=== PATIENT | male | born 1955 | race Caucasian/White ===

== ENCOUNTER 2017-05-28 09:06 | Emergency (ER) | payer OTHER ==
[~2017-05-28] VITALS: Ht 182.9 cm; Wt 127.0 kg
[~2017-05-28 09:06] MED LIST: ALBUTEROL2.5 MG/3 M INH; ALTACE10 M1 PO; AZITHROMYCIN500 M3 PO; CATAPRES-TTS 21 EACH TD; CHILDREN'S ASPI81 M1 PO; DIFLUCAN 100MG100 MG PO; DIOVAN 160 MG160 MG PO; FARXIGA5 MG PO; FLOVENT HFA12 G1 INH; HYDRALAZINE HCL25 M1 PO; HYDROCHLOROTHIAZIDE PO; IPRATROPIU0.2 MG/1 M INH; KLOR-CON M2020 ME1 PO; LABETALOL HCL200 MG PO; LANTUS100 U/ML SC; LASIX40 M1 PO; LEVEMIR 10100 UNITS/ SC; METFORMIN HYDR500 M1 PO; MONTELUKAST SOD10 M1 PO; NORVASC 10MG10 MG PO; NOVOLOG100 U/ML SC; PREDNISONE10 M2 PO; SIMVASTATIN40 M1 PO; TRESIBA FL200 UNIT/1 SC; VALSARTAN PO; VALSARTAN320 MG PO
--- NOTE | 2017-05-28 09:30 | ED INFLUENZA/URI COMPLAINT ---
History of Present Illness General Chief Complaint: Upper Respiratory Sx/Fever Stated Complaint: COLD SYMPTOMS Source: patient Exam Limitations: no limitations Vital Signs & Intake/Output Vital Signs & Intake/Output Vital Signs Date Time Temp Pulse Resp B/P B/P Pulse O2 O2 Flow FiO2 Mean Ox Delivery Rate 05/28 0833 Room Air 05/28 908 97.2 57 18 172/75 96 Room Air Allergies Coded Allergies: NO KNOWN ALLERGIES (11/19/13) Reconcile Medications Aspirin (Children's Aspirin) 81 MG TAB.CHEW 1 TAB PO DAILY HEART HEALTH ( Reported) Cholecalciferol (Vitamin D3) (Vitamin D3) 2,000 UNIT TABLET 1 TAB PO DAILY VITAMIN SUPPORT (Reported) Furosemide (Lasix) 40 MG TABLET 1 TAB PO DAILY HEART (Reported) Guaifenesin (Mucinex) 1,200 MG TAB.ER.12H 1 TAB PO BID PRN COUGH Insulin Degludec (Tresiba Flextouch U-100) 100 UNIT/ML (3 ML) INSULN.PEN 84 UNITS SC DAILY DIABETES (Reported) Labetalol HCl 200 MG TABLET 1 TAB PO BID HEART (Reported) Potassium Chloride (Klor-Con M20) 20 MEQ TAB.ER.PRT 1 TAB PO DAILY LOW POTASSIUM Simvastatin (Simvastatin*) 40 MG TABLET 1 TAB PO DAILY CHOLESTEROL (Reported) Valsartan 160 MG TABLET 1 TAB PO BID HEART (Reported) Triage Note: PT STATES HE DOESN'T FEEL WELL WAS SEEN IN HIS DR. OFFICE AND HE STATES "HE CAN'T FIND ANYTHING WRONG WITH ME". PT REPORTS COLD LIKE SYMPTOMS THAT WON'T GO AWAY. PT HAS BEEN SICK FOR A WEEK AND A HALF. PT DENIES COUGH. Triage Nurses Notes Reviewed? yes Onset: Gradual Duration: week(s):, continues in ED, intermittent Severity: severe HPI: Patient presents for evaluation of a cough with yellow phlegm production and chest congestion. Patient states that about 2 weeks ago he had some nausea and vomiting that has resolved but the chest symptoms persist. Patient has had a diminished appetite and has felt weak and somewhat fatigued although his appetite seems to be returning. Patient denies fever, cold symptoms, vomiting or diarrhea over the past few days. No apparent headaches or sinus/nasal/ pharyngeal signs or symptoms other than mild postnasal drip. Patient denies any known ill contact. He admits to not having had the influenza vaccine this year. Past History Travel History Traveled to [place] past 21 day No Medical History Any Pertinent Medical History? 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 No Review of Systems Review of Systems Constitutional: Reports: no symptoms. EENTM: Reports: no symptoms. Respiratory: Reports: see HPI. Cardiovascular: Reports: no symptoms. GI: Reports: no symptoms. Genitourinary: Reports: no symptoms. Musculoskeletal: Reports: no symptoms. Skin: Reports: no symptoms. Neurological/Psychological: Reports: no symptoms. Hematologic/Endocrine: Reports: no symptoms. Immunologic/Allergic: Reports: no symptoms. All Other Systems: Reviewed and Negative Physical Exam Physical Exam Ears, Nose, Throat: see below Comments: Gen.: Well-nourished, well-developed, no acute respiratory distress. Head: Normocephalic, atraumatic. Eyes: Normal inspection bilaterally Ears: Normal inspection bilaterally Nose: Normal inspection Throat/mouth : Moist mucosa Neck: Supple, full range of motion, no goiter Heart: Regular rate and rhythm, no murmurs rubs or gallops Lungs: Clear to auscultation bilaterally with normal air entry Chest: Nontender Back: Normal range of motion Abdomen: Soft, nontender, nondistended, normal bowel sounds Extremities: Normal range of motion grossly, equal radial pulses, no cyanosis clubbing or edema Neurologic: Cranial nerves grossly intact, speech is clear Skin: warm and dry Psychiatric: Calm, cooperative, no apparent delusions or hallucinations Core Measures Sepsis Present: No Sepsis Focused Exam Completed? No Progress Differential Diagnosis: pneumonia, POST BRONCHITIS Plan of Care: Orders Procedure Date/time Status XRY-CHEST XRAY, TWO VIEWS 05/28 1012 Active CXR Impression: PATIENT: JASON HOPPER PRESENT AGE: 61 PATIENT ACCOUNT NO: [id number] : 53 LOCATION: ER ORDERING PHYSICIAN: Gallo Peraza MD SERVICE DATE: 05/28/17 EXAM TYPE: RAD - XRY-CHEST XRAY, TWO VIEWS EXAMINATION: XR CHEST CLINICAL INFORMATION: Pneumonia. COMPARISON: Chest radiograph dated 05/25/2017. TECHNIQUE: 2 views of the chest were obtained. FINDINGS: The cardiac silhouette is normal in size. There is no focal consolidation to indicate pneumonia. No pneumothorax. No pleural effusion. There are degenerative changes throughout the thoracic spine. IMPRESSION: No definite pneumonia. No pleural effusion or pneumothorax. No change from prior study. DICTATED BY: Feroz Copeland MD DATE/TIME DICTATED:05/28/171056 DISTRICT ATTORNEY:JUSTINO DATE/TIME TRANSCRIBED:05/28/171056 CONFIDENTIAL, DO NOT COPY WITHOUT APPROPRIATE AUTHORIZATION. <Electronically signed in Other Vendor System> SIGNED BY: Feroz Copeland MD 05/28/17 1103 Initial ED EKG: none Departure Departure Disposition: HOME OR SELF CARE Condition: Stable Clinical Impression Primary Impression: Bronchitis Referrals: Cee Gibbons MD (PCP/Family) Additional Instructions: Cough medication as prescribed. Maintained a good fluid intake. Follow-up with your primary care physician in one week if not improving although the cough following bronchitis may last a number of weeks. Return if any concerns or sudden worsening. Thank you for choosing the [facility] Emergency Department for your care. It was a pleasure to serve you today. Gallo Peraza M.D. [facility] Departure Forms: Customer Survey General Discharge Information Prescriptions: Current Visit Scripts Guaifenesin (Mucinex) 1 TAB PO BID PRN COUGH #30 TAB
[2017-05-28] MEDS ORDERED: LABETALOL HCL200 M1 PO (09:53)
[2017-05-28] MEDS ORDERED: VITAMIN D32000 UNI1 PO (09:54)
[2017-05-28] MEDS ORDERED: TRESIBA FL100 UNIT/1 SC (09:55)
[2017-05-28] MEDS ORDERED: VALSARTAN160 M1 PO (09:57)
--- NOTE | 2017-05-28 11:03 | RADIOLOGY REPORT ---
EXAMINATION: XR CHEST CLINICAL INFORMATION: Pneumonia. COMPARISON: Chest radiograph dated 05/25/2017. TECHNIQUE: 2 views of the chest were obtained. FINDINGS: The cardiac silhouette is normal in size. There is no focal consolidation to indicate pneumonia. No pneumothorax. No pleural effusion. There are degenerative changes throughout the thoracic spine. IMPRESSION: No definite pneumonia. No pleural effusion or pneumothorax. No change from prior study.
[2017-05-28] MEDS ORDERED: MUCINEX1200 M1 PO (11:07)
[2017-05-28 11:18] VITALS: BP 150/80
== END 2017-05-28 11:18 ==
LOC: ERH 09:06
DX: J40 Bronchitis, not specified as acute or chronic (principal)
CPT/HCPCS: 71046

== ENCOUNTER 2017-07-01 11:11 | Inpatient (IN) | payer OTHER ==
[~2017-07-01] VITALS: Ht 182.9 cm; Wt 136.1 kg
[~2017-07-01 11:11] MED LIST changes: +LABETALOL HCL200 M1 PO; +MUCINEX1200 M1 PO; +TRESIBA FL100 UNIT/1 SC; +VALSARTAN160 M1 PO; +VITAMIN D32000 UNI1 PO
--- NOTE | 2017-07-01 11:24 | ED GENERAL ADULT ---
History of Present Illness General Chief Complaint: General Adult Stated Complaint: BIBA DANYA AND LOW BLOOD SUGAR Source: patient Exam Limitations: no limitations Vital Signs & Intake/Output Vital Signs & Intake/Output Vital Signs Date Time Temp Pulse Resp B/P B/P Pulse O2 O2 Flow FiO2 Mean Ox Delivery Rate 07/01 1936 98.1 70 20 210/80 95 Room Air 07/01 1703 98.0 64 20 182/96 96 Room Air 07/01 1417 97.6 61 18 208/92 97 Room Air 07/01 1135 98.7 62 20 208/90 97 Room Air 07/01/17 11:21 AM 61-year-old man presents to the emergency department for altered mental status. According to EMS the patient was found unresponsive at home. He was bradycardic and hypoglycemic. He had a fingerstick that was low he was given an amp of D50. He had a heart rate in the 40s and was given atropine and glucagon. Currently now in the emergency Department is awake alert and oriented 3. He has no complaints. Allergies Coded Allergies: NO KNOWN ALLERGIES (11/19/13) Reconcile Medications Aspirin (Children's Aspirin) 81 MG TAB.CHEW 1 TAB PO DAILY HEART HEALTH ( Reported) Cholecalciferol (Vitamin D3) (Vitamin D3) 2,000 UNIT TABLET 1 TAB PO DAILY VITAMIN SUPPORT (Reported) Furosemide (Lasix) 40 MG TABLET 1 TAB PO DAILY HEART (Reported) Insulin Degludec (Tresiba Flextouch U-100) 100 UNIT/ML (3 ML) INSULN.PEN 84 UNITS SC DAILY DIABETES (Reported) Labetalol HCl 200 MG TABLET 1 TAB PO BID HEART (Reported) Potassium Chloride (Klor-Con M20) 20 MEQ TAB.ER.PRT 1 TAB PO DAILY LOW POTASSIUM Simvastatin (Simvastatin*) 40 MG TABLET 1 TAB PO DAILY CHOLESTEROL (Reported) Valsartan 160 MG TABLET 1 TAB PO DAILY HEART (Reported) Triage Nurses Notes Reviewed? yes Onset: Abrupt Duration: hour(s): Timing: recent history HPI: 07/01/17 11:21 AM 61-year-old man presents to the emergency department for altered mental status. According to EMS the patient was found unresponsive at home. He was bradycardic and hypoglycemic. He had a fingerstick that was low he was given an amp of D50. He had a heart rate in the 40s and was given atropine and glucagon. Currently now in the emergency Department is awake alert and oriented 3. He has no complaints. Past History Medical History Any Pertinent Medical History? 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 No Review of Systems Review of Systems Constitutional: Denies: fever. EENTM: Denies: visual changes. Respiratory: Denies: short of breath. Cardiovascular: Denies: chest pain. GI: Reports: abdominal pain, vomiting. Genitourinary: Reports: no symptoms. Musculoskeletal: Reports: see HPI. Skin: Reports: see HPI. Neurological/Psychological: Reports: see HPI. Hematologic/Endocrine: Reports: no symptoms. Physical Exam Physical Exam General Appearance: alert, awake, anxious, mild distress Head: atraumatic, normal appearance Eyes: Bilateral: normal appearance, PERRL, EOMI. Ears, Nose, Throat: normal pharynx, normal ENT inspection Neck: normal inspection, supple Respiratory: normal breath sounds, chest non-tender, no respiratory distress Cardiovascular: regular rate/rhythm Peripheral Pulses: 4+ radial (R), 4+ radial (L) Gastrointestinal: soft, non-tender Back: decreased range of motion Extremities: pedal edema Neurologic/Psych: no motor/sensory deficits, awake, alert, oriented x 3 Skin: ecchymosis (left lower quadrant) Core Measures ACS in differential dx? Yes No ASA d/t no chest pain CVA/TIA Diagnosis: No Sepsis Present: No Sepsis Focused Exam Completed? No Progress Differential Diagnoses I considered the following diagnoses in my evaluation of the patient: [ Hypoglycemia, anemia, GI bleed, dysrhythmia, bradycardia, adverse drug reaction] Plan of Care: Orders Procedure Date/time Status Heart Healthy Diet 07/02 B Active CBC WITHOUT DIFFERENTIAL 07/02 06 Active BASIC ELECTROLYTES PLUS BUN&CR 07/02 06 Active TROPONIN LEVEL 07/02 0000 Active EKG 07/02 0000 Active Clear Liquid Diet 07/01 D Complete TROPONIN LEVEL 07/01 1800 Complete EKG 07/[address] ABD & PELVIS W/O IV CONTRAS 07/01 1619 Active ED Holding Orders 07/01 1558 Active Admit to inpatient 07/01 1558 Active Code Status 07/01 1558 Active Pathway - chart 07/01 1543 Active House Staff 07/01 1543 Active Patient Data 07/01 1543 Active Code Status 07/01 1543 Complete Patient Data 07/01 1537 Active Intake & Output 07/01 1245 Active Add-on Test (ER Only) 07/01 1129 Active Telemetry/[place] Administrator 07/01 1114 Active URINE DRUGS OF ABUSE 07/01 1114 Complete TROPONIN LEVEL 07/01 1114 Complete COMPREHENSIVE METABOLIC PANEL 07/01 1114 Complete CREATINE PHOSPHOKINASE 07/01 1114 Complete CBC WITHOUT DIFFERENTIAL 07/01 1114 Complete EKG 07/01 1114 Active VTE Mechanical Prophylaxis 07/01 UNK Active Vital Signs 07/01 UNK Active MISTAKE 07/01 UNK Active Telemetry/[place] Administrator 07/01 UNK Active FingerStick- Glucose 07/01 UNK Active ECHOCARDIOGRAM 07/01 UNK Active Current Medications Sig/Jacque Start time Last Medication Dose Stop Time Status Admin Atorvastatin Calcium 40 MG 1700 07/02 1700 AC (Lipitor) Insulin Aspart 0 TIDAC 07/02 0800 AC (NovoLOG) Heparin Sodium 5,000 UNIT Q8 07/01 2200 AC (Porcine) Losartan Potassium 50 MG DAILY 07/01 1716 AC 07/01 (Cozaar) 1755 Aspirin 81 MG DAILY 07/01 171 AC 07/01 (Aspirin) 1755 Cholecalciferol 1,000 IU DAILY 07/01 1715 AC 07/01 (Vitamin D) 1755 Furosemide 40 MG DAILY 07/01 1715 AC 07/01 (Lasix) 1755 Potassium Chloride 20 MEQ DAILY 07/01 171 AC 07/01 (K-Dur) 1755 Acetaminophen 650 MG Q6P PRN 07/01 1545 AC (Tylenol) Acetaminophen 1,000 MG Q6P PRN 07/01 1545 AC (Ofirmev) Laboratory Tests 07/01/17 1759: Troponin I 0.02 07/01/17 1228: Urine Opiates Screen < 100.00, Methadone Screen < 40, Barbiturate Screen < 60, Ur Phencyclidine Scrn < 6.00, Amphetamines Screen < 100, U Benzodiazepines Scrn < 85, Urine Cocaine Screen < 50, Urine Cannabis Screen < 5.00 07/01/17 1125: Anion Gap 10, Estimated GFR 47 L, BUN/Creatinine Ratio 19.3, Glucose 149 H, Calcium 8.7, Total Bilirubin 0.6, AST 22, ALT 43, Alkaline Phosphatase 114, Creatine Kinase 114, Troponin I 0.02, Total Protein 6.2 L, Albumin 3.6, Globulin 2.6, Albumin/Globulin Ratio 1.4, CBC w Diff NO MAN DIFF REQ, RBC 4.31 L, MCV 89.7, MCH 30.7, MCHC 34.2, RDW 14.8 H, MPV 8.5, Gran % 86.9 H, Lymphocytes % 8.0 L, Monocytes % 3.4, Eosinophils % 1.5, Basophils % 0.2, Absolute Granulocytes 6.9 H, Absolute Lymphocytes 0.6 L, Absolute Monocytes 0.3, Absolute Eosinophils 0.1, Absolute Basophils 0 Initial ED EKG: NSR, nonspecific ST T wave chg, ST elevation Prior EKG: unchanged Departure Departure Disposition: STILL A PATIENT Condition: Stable Clinical Impression Primary Impression: Bradycardia Secondary Impressions: Hypoglycemia, Hypokalemia, Renal insufficiency, Syncope Referrals: Cee Gibbons MD (PCP/Family) Departure Forms: Customer Survey General Discharge Information Comments Prehospital EKG reveals Q waves and ST segment elevation in V1 to V3, no significant change from the old. The patient was admitted to the hospital for further care. He did vomit in the emergency department, CT scan of the abdomen and pelvis was ordered this was pending at the time of admission, he also had subsequent episodes of hypoglycemia. Admission Note Spoke With: Radha Cope MD Documentation of Exam: Documentation of any treatments & extenuating circumstances including Concerns Regarding Discharge (functional status, medication knowledge or non-compliance, living conditions, etc.) that warrant an admission rather than observation: [The patient needs admission for telemetry monitoring, fingerstick glucose monitoring , cardiology consultation, serial troponins, inpatient echocardiogram] Critical Care Note Critical Care Note Critical Care Time: non-applicable
[2017-07-01 11:48] LABS: ABSOLUTE BASOPHIL COUNT 0 /CUMM (0.0-0.2); ABSOLUTE EOSINOPHIL COUNT 0.1 /CUMM (0.0-0.7); ABSOLUTE GRANULOCYTE CT 6.9 /CUMM (1.4-6.5); ABSOLUTE LYMPH COUNT 0.6 /CUMM (1.2-3.4); ABSOLUTE MONOCYTE COUNT 0.3 /CUMM (0.10-0.60); BASOPHIL % 0.2 % (0.0-2.0); EOSINOPHIL % 1.5 % (0-5); HEMATOCRIT 38.7 % (42-52); MEAN CORPUSCULAR HGB 30.7 PG (27.0-31.0); MEAN CORPUSCULAR HGB CONC 34.2 G/DL (33.0-37.0); MEAN CORPUSCULAR VOLUME 89.7 FL (80.0-94.0); MEAN PLATELET VOLUME 8.5 FL (7.4-10.4); PLATELET COUNT 171 /CUMM (130-400); RBC DISTRIBUTION WIDTH 14.8 % (11.5-14.5); RED BLOOD CELL CT 4.31 /CUMM (4.70-6.10)
--- NOTE | 2017-07-01 12:03 | RADIOLOGY REPORT ---
EXAMINATION: XR PORTABLE CHEST CLINICAL INFORMATION: Shortness of breath COMPARISON: Prior chest May 2017 TECHNIQUE: Portable frontal view of the chest was obtained. FINDINGS: Lungs otherwise clear. Cardiac silhouette mediastinum pulmonary vascularity normal. Bone and soft tissues unremarkable. Question subtle increased opacity in the medial base IMPRESSION: Question opacity right base may reflect atelectasis or evolving infiltrate. Consider repeat radiograph upright PA and lateral to more definitively assess
[2017-07-01 12:17] LABS: GRANULOCYTE % 86.9 % (42.2-75.2)
--- NOTE | 2017-07-01 15:52 | History & Physical ---
Kanchan MATOS,[facility] 07/01/17 1551: General Information and HPI MD Statement: I have seen and personally examined JASON HOPPER and documented this H&P. The patient is a 61 year old M who presented with a patient stated chief complaint of [Syncope]. Source of Information: patient, EMS Exam Limitations: no limitations History of Present Illness: Mr. Hopper is a 61-year-old gentleman with past medical history significant for ? ?TIA, CHF, hypertension, hyperlipidemia, objective sleep apnea on CPAP, pneumonia, osteomyelitis status post bilateral second toe amputation and diabetes was brought in by EMS after he was found unresponsive at home. According to the patient, he was in his usual state of health until this morning when after waking up around 8 AM, he felt dizzy and nauseous and the next thing he remembers is waking up around 1045 by the EMS was called by his roommate. Also had slight confusion afterwards. States he felt like his blood sugars were running low and that's why he passed out. Reports multiple similar episodes in the past. Denies any chest pain, palpitations, shortness of breath, jerky movements of his body, bowel or bladder incontinence, tongue biting, weakness or numbness in any part of the body, recent illness, fever/chills or any recent change in medications. Reports sick contacts at work with a stomach bug. Patient also complains of increased bilateral lower extremity swelling and edema with open wounds for the past couple of days. No increased erythema, pains or warmth. Patient checks his blood sugar levels at home, fasting blood sugar levels are mostly in 60s or 70s. Reports multiple hypoglycemic events. 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 Further EMS and patient was found to be bradycardic (in 40s) and hypoglycemic and was given atropine, glucagon and 1 amp of dextrose. Allergies/Medications Allergies: Coded Allergies: NO KNOWN ALLERGIES (11/19/13) Home Med list Aspirin (Children's Aspirin) 81 MG TAB.CHEW 1 TAB PO DAILY HEART HEALTH ( Reported) Cholecalciferol (Vitamin D3) (Vitamin D3) 2,000 UNIT TABLET 1 TAB PO DAILY VITAMIN SUPPORT (Reported) Furosemide (Lasix) 40 MG TABLET 1 TAB PO DAILY HEART (Reported) Insulin Degludec (Tresiba Flextouch U-100) 100 UNIT/ML (3 ML) INSULN.PEN 84 UNITS SC DAILY DIABETES (Reported) Labetalol HCl 200 MG TABLET 1 TAB PO BID HEART (Reported) Potassium Chloride (Klor-Con M20) 20 MEQ TAB.ER.PRT 1 TAB PO DAILY LOW POTASSIUM Simvastatin (Simvastatin*) 40 MG TABLET 1 TAB PO DAILY CHOLESTEROL (Reported) Valsartan 160 MG TABLET 1 TAB PO DAILY HEART (Reported) Past History Medical History Neurological: NONE EENT: NONE Cardiovascular: CHF, hypertension, hyperlipidemia Respiratory: obstructive sleep apnea, pneumonia Gastrointestinal: NONE Hepatic: NONE Renal: NONE Musculoskeletal: osteomyelitis Psychiatric: NONE Endocrine: diabetes Blood Disorders: NONE Cancer(s): NONE ASSORTMENT PLANNER/Reproductive: NONE History of MRSA: No History of VRE: No History of CDIFF: No Surgical History Surgical History: left hip surgery left toe amputation for osteomyelitis Past Family/Social History Family History Relations & Conditions if any FATHER FH: diabetes mellitus Psychosocial History Where do you live? Home Who Do You Live With? self Services at Home: None Smoking Status: Never Smoked ETOH Use: occasional use Illicit Drug Use: denies illicit drug use Functional Ability ADLs Independent: dressing, eating, toileting, bathing. Ambulation: independent IADLs Independent: shopping, housework, finances, food prep, telephone, transportation , medication admin. Review of Systems Review of Systems Constitutional: Reports: no symptoms. EENTM: Reports: no symptoms. Cardiovascular: Reports: peripheral edema. Respiratory: Reports: no symptoms. GI: Reports: nausea. Genitourinary: Reports: no symptoms. Musculoskeletal: Reports: no symptoms. Skin: Reports: lesions. Neurological/Psychological: Reports: no symptoms. Hematologic/Endocrine: Reports: no symptoms. Immunologic/Allergic: Reports: no symptoms. All Other Systems: Reviewed and Negative Exam & Diagnostic Data Last 24 Hrs of Vital Signs/I&O Vital Signs Date Time Temp Pulse Resp B/P B/P Pulse O2 O2 Flow FiO2 Mean Ox Delivery Rate 07/01 1703 98.0 64 20 182/96 96 Room Air 07/01 1417 97.6 61 18 208/92 97 Room Air 07/01 1135 98.7 62 20 208/90 97 Room Air Intake & Output 07/01 1600 07/01 0800 07/01 0000 Intake Total 490 Output Total 1200 Balance -710 Intake, IV 250 Intake, Oral 240 Output, Urine 1200 Patient 300 lb Weight Weight Reported by Patient Measurement Method Physical Exam General Appearance Alert, Oriented X3, Cooperative Skin No Rashes HEENT Atraumatic, PERRLA, EOMI, Mucous Membr. moist/pink Neck Supple, No JVD, No thryomegaly Cardiovascular Regular Rate, Normal S1, Normal S2, No Murmurs Lungs Clear to Auscultation, Normal Air Movement Abdomen Normal Bowel Sounds, Soft, No Tenderness, Induration around umbilical area Neurological Normal Speech, Strength at 5/5 X4 Ext, Normal Tone, Sensation Intact Extremities No Clubbing, No Cyanosis, +1 pitting edema, chronic venous stasis changes with small open wounds bilaterally. Last 24 Hrs of Labs/Jordin: Laboratory Tests 07/01/17 1228: Urine Opiates Screen < 100.00, Methadone Screen < 40, Barbiturate Screen < 60, Ur Phencyclidine Scrn < 6.00, Amphetamines Screen < 100, U Benzodiazepines Scrn < 85, Urine Cocaine Screen < 50, Urine Cannabis Screen < 5.00 07/01/17 1125: Anion Gap 10, Estimated GFR 47 L, BUN/Creatinine Ratio 19.3, Glucose 149 H, Calcium 8.7, Total Bilirubin 0.6, AST 22, ALT 43, Alkaline Phosphatase 114, Creatine Kinase 114, Troponin I 0.02, Total Protein 6.2 L, Albumin 3.6, Globulin 2.6, Albumin/Globulin Ratio 1.4, CBC w Diff NO MAN DIFF REQ, RBC 4.31 L, MCV 89.7, MCH 30.7, MCHC 34.2, RDW 14.8 H, MPV 8.5, Gran % 86.9 H, Lymphocytes % 8.0 L, Monocytes % 3.4, Eosinophils % 1.5, Basophils % 0.2, Absolute Granulocytes 6.9 H, Absolute Lymphocytes 0.6 L, Absolute Monocytes 0.3, Absolute Eosinophils 0.1, Absolute Basophils 0 Diagnostic Data EKG Results Normal sinus rhythm with first-degree AV block Heart rate 62 Right bundle-branch block ST elevations through V1 to V4 CXR Results IMPRESSION: Question opacity right base may reflect atelectasis or evolving infiltrate. Consider repeat radiograph upright PA and lateral to more definitively assess Assessment/Plan Assessment: Mr. Hopper is a 61-year-old gentleman with past medical history significant for ? ?TIA,CAD, CHF, hypertension, hyperlipidemia, objective sleep apnea on CPAP, pneumonia, osteomyelitis status post bilateral second toe amputation and diabetes was brought in by EMS after he was found unresponsive at home. A/P 1. Syncope; Could be from hypoglycemia, bradycardia - Will admit the patient to telemetry floor. - Heart rate currently in the 60s, will watch for any episodes of bradycardia - Cardiology consult; await recommendations. - Endocrinology Consult for frequent hypoglycemic episodes. 2. EKG changes; ?? Silent GA (patient does not have any chest pain but have ST elevations on EKG (old vs new?) And complains of nausea, had one episode of vomiting in the ER and epigastric discomfort which could be an atypical presentation of GA in diabetics). - Repeat troponins and EKG 2 to rule out ACS. Initial troponin was negative. - Recent echocardiogram was on 11/07/2015 showing Diastolic filling pattern consistent with impaired LV relaxation and an ejection fraction estimated at 70% . - Cardiology consult. 3. Hypertensive urgency; Patient was found to have a blood pressure of 280/90 in the ER but the patient does admit to not taking his blood pressure medications this morning. - Will continue Valsartan. - Hold labetalol given an episode of bradycardia per EMS. - Can give hydralazine if blood pressure remains high. 4. Nausea/vomiting; Reports sick contacts at work - Avoid Zofran(prolonged QTC) - We'll give Tigan for nausea/vomiting if needed. - We'll start the patient on clear liquid diet, advance as tolerated. - CT abdomen and pelvis. 5. Hypokalemia; potassium level of 3.3 - We'll replete potassium - Repeat BP in a.m. 6. Diabetes - We'll hold Tresiba - Start the patient on medium dose insulin sliding scale. - Accu-Cheks every 6 hours - Endocrinology consult 7. Lower extremity edema; - Continue Lasix 40 mg daily. - Keep the legs elevated. 8. Coronary artery disease; - Continue aspirin and statin. DVT prophylaxis; subcutaneous heparin Patient is full code As Ranked By This Provider Problem List: 1. Nausea and vomiting 2. HTN (hypertension) 3. Syncope 4. Hypoglycemia 5. Bradycardia 6. Diabetes Core Measures/Misc (01/31) Acute Coronary Syndrome ACS Diagnosis: No Congestive Heart Failure Congestive Heart Failure Diagnosis No Cerebrovascular Accident CVA/TIA Diagnosis: No VTE (View Protocol) VTE Risk Factors Obesity No Mechanical VTE Prophylaxis d/t Physical Contraindication No VTE Pharm Prophylaxis d/t NA PharmProphylax ordered Sepsis (View protocol) Sepsis Present: No Radha Cope MD 07/01/17 1634: Attending MD Review Statement Attending Statement Attending MD Statement: examined this patient, discuss w/resident/PA/AUTOMOTIVE GENERATOR REPAIRER, agreed w/resident/PA/AUTOMOTIVE GENERATOR REPAIRER, reviewed EMR data (avail), discussed with nursing, reviewed images, amended to note Attending Assessment/Plan: 61-year-old male with past medical history significant for diabetes, episodes of hypoglycemia, hypertension, congestive heart failure, hyperlipidemia, JUVE was brought in by ambulance secondary to found unresponsive. Patient was found hypoglycemic and bradycardic. No recommendation about her blood sugars but patient did receive ab of D50. His heart rate was found to be around 40. Patient remembers getting somewhat confused this morning and thought that his blood sugars were going down. He felt really tired and apparently passed out but he does not remember passing out and he thought that he would just sleep a little bit more. He denies any chest palpitations, chest been, shortness of breath. In the emergency room he is awake and alert. His blood pressure was very high in the ER and patient claims that he has not received any of his blood pressure medications this morning. He does state labetalol. He has been having episodes of hypoglycemia especially in the morning. He claims that he had discussed with his doctor. Patient Traseba for his diabetes. In the emergency room he threw up once. He did complain of some lower abdominal discomfort. Vital Signs Date Time Temp Pulse Resp B/P B/P Pulse O2 O2 Flow FiO2 Mean Ox Delivery Rate 07/01 1417 97.6 61 18 208/92 97 Room Air 07/01 1135 98.7 62 20 208/90 97 Room Air on exam; aox3, nad. cv; s1,s2, rrr resp; clear abd: soft, mild tenderness in lower abd, bs+ ext; 1+ edema b/l with chronic venous stasis changes, open area on the left lower extremity and scabs. Laboratory Tests 07/01 07/01 1228 1125 Chemistry Sodium (137 - 145 mmol/L) 143 Potassium (3.5 - 5.1 mmol/L) 3.3 L Chloride (98 - 107 mmol/L) 103 Carbon Dioxide (22 - 30 mmol/L) 29 Anion Gap (5 - 16) 10 BUN (9 - 20 mg/dL) 29 H Creatinine (0.7 - 1.2 mg/dL) 1.5 H Estimated GFR (>60 ml/min) 47 L BUN/Creatinine Ratio (7 - 25 %) 19.3 Glucose (65 - 99 mg/dL) 149 H Calcium (8.4 - 10.2 mg/dL) 8.7 Total Bilirubin (0.2 - 1.3 mg/dL) 0.6 AST (17 - 59 U/L) 22 ALT (21 - 72 U/L) 43 Alkaline Phosphatase (< 127 U/L) 114 Creatine Kinase (55 - 170 U/L) 114 Troponin I (<0.11 ng/ml) 0.02 Total Protein (6.3 - 8.2 g/dL) 6.2 L Albumin (3.5 - 5.0 g/dL) 3.6 Globulin (1.9 - 4.2 gm/dL) 2.6 Albumin/Globulin Ratio (1.1 - 2.2 %) 1.4 Hematology CBC w Diff NO MAN DIFF REQ WBC (4.8 - 10.8 /CUMM) 8.0 RBC (4.70 - 6.10 /CUMM) 4.31 L Hgb (14.0 - 18.0 G/DL) 13.2 L Hct (42 - 52 %) 38.7 L MCV (80.0 - 94.0 FL) 89.7 MCH (27.0 - 31.0 PG) 30.7 MCHC (33.0 - 37.0 G/DL) 34.2 RDW (11.5 - 14.5 %) 14.8 H Plt Count (130 - 400 /CUMM) 171 MPV (7.4 - 10.4 FL) 8.5 Gran % (42.2 - 75.2 %) 86.9 H Lymphocytes % (20.5 - 51.1 %) 8.0 L Monocytes % (1.7 - 9.3 %) 3.4 Eosinophils % (0 - 5 %) 1.5 Basophils % (0.0 - 2.0 %) 0.2 Absolute Granulocytes (1.4 - 6.5 /CUMM) 6.9 H Absolute Lymphocytes (1.2 - 3.4 /CUMM) 0.6 L Absolute Monocytes (0.10 - 0.60 /CUMM) 0.3 Absolute Eosinophils (0.0 - 0.7 /CUMM) 0.1 Absolute Basophils (0.0 - 0.2 /CUMM) 0 Toxicology Urine Opiates Screen (>2000 NG/ML) < 100.00 Methadone Screen (>300 NG/ML) < 40 Barbiturate Screen (>200 NG/ML) < 60 Ur Phencyclidine Scrn (>25 NG/ML) < 6.00 Amphetamines Screen (>1000 NG/ML) < 100 U Benzodiazepines Scrn (>200 NG/ML) < 85 Urine Cocaine Screen (>300 NG/ML) < 50 Urine Cannabis Screen (>50 NG/ML) < 5.00 EKG shows sinus rhythm with rate in 60s. EKG was shown to the human resources coordinator also because there was some question about mild ST elevation in V2 and V3. Dr. Parrish had looked at the EKG and thinks that these are probably repolarization abnormality. CXR: IMPRESSION: Question opacity right base may reflect atelectasis or evolving infiltrate. A/P; 61-year-old male with past medical history significant for diabetes, episodes of hypoglycemia, hypertension, congestive heart failure, hyperlipidemia , JUVE admitted to telemetry with episode of bradycardia, hypertensive urgency, hypoglycemia, hypokalemia and vomiting. Please replete potassium. We will trend troponins. Will hold off on the beta jose for now. We'll try to control patient's blood pressure with ARB, Lasix and use hydralazine as needed. Cardiology will be consulted. Please repeat echocardiogram. Please replete potassium. Patient will be started on sliding scale insulin. Will hold the long-acting insulin for now and consult endocrinology. Patient should've Accu-Cheks every 6 hours. Patient should be kept nothing by mouth for now. Should be gently hydrated with IV fluids. Symptomatically with antiemetics for nausea vomiting. He did mention that everybody at work is sick with stomach flu. CT abdomen and pelvis was ordered in the ER, will follow-up on the results. Continue the rest of the home meds. DVT prophylaxis: Heparin subcutaneous. Full code. Jon Juan 07/01/17 8508: Resident Review Statement Resident Statement: examined this patient, discussed with international logistics coordinator, agreed with international logistics coordinator, discussed with family, reviewed EMR data (avail), discussed with nursing , discussed with case mgmt, reviewed images, amended to note Other Findings: This is a 61-year-old male with past medical history significant for chronic kidney disease, morbid obesity, bilateral lower extremity edema with venous stasis, chronic lymphedema, diabetes mellitus on subcutaneous insulin, hypertension, hyperlipidemia, obstructive sleep apnea not on CPAP, osteomyelitis status post bilateral second toe removal, left hip surgery, migraine headaches, prior history of coronary artery disease was brought in by ambulance after he was found unresponsive at home. Patient was totally fine until 8 AM, when he had lightheadedness and dizziness and passed out. He was evaluated by EMS at around 10:30 AM. He couldn't remember the events happened between 8 and 10:30 AM. Denied any stool or urine incontinence, seizures. No chest pain, short of breath, palpitations before the evening. He was found to be in bradycardia 40, hypoglycemia. He received 1 amp dextrose in the field and he was brought to the emergency department. He is alert awake and oriented 3 in the emergency room. Couldn't remember the events happened this morning. He denied any chest pain, shortness of breath, palpitations, fever, chills, cough, change in bladder or bowel habits. He reported nausea in the emergency room with an episode of clear liquid vomitus. Off note patient follows up with PCP. He takes Tresiba for diabetes mellitus. 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 He underwent stress test last year which was normal. Patient reports worsening lower extremity swelling with Weeping wounds recently. Denies smoking, follow use, illicit drug abuse. Vitals afebrile, heart rate 62, respiratory rate 20, blood pressure 208/92, saturating at 97 on room air. On exam HEENT within normal limits, S1-S2 normal, bilateral breath sounds good, abdomen soft nondistended, nontender. Bilateral lower extremity swelling with venous stasis and weeping wounds. Pertinent labs WBC 8, hemoglobin 13 and hematocrit 38, platelets 171. Sodium 143, potassium 3.3, BUN/creatinine and creatinine 1.5, glucose 149 LFT normal troponin normal chest x-ray showed questionable right base opacity. EKG showed sinus rhythm, rate 62, left anterior fascicular block, prominent Q waves. Mild ST elevation in V2 and V3. Reviewed EKG with Dr. Parrish, thinks that these are repolarization abnormalities. -------- 1. Hypertensive urgency Patient was found to have blood pressure 208/92 with no chest pain, shortness of breath, abdominal pain, headache, weakness or sensory changes. Off note he didn 't take his blood pressure medications this morning. Please resume his home medications valsartan. Hold her labetalol given his bradycardia Blood pressure improved to 180/80. Give hydralazine if required for hypertension management. Continuous telemetry monitoring 2. Hypokalemia Potassium 3.3. Please replete potassium and recheck electrolytes in a.m. 3. Syncope/bradycardia An episode of syncope this morning prior to admission. He was noted to have bradycardia and hypoglycemia, however no documentation was provided. Syncope most possibly from bradycardia and left anterior fascicular block and hypoglycemia. No focal neurologic deficits. Continuous telemetry monitoring Serial troponin and EKG Check orthostatic vitals Cardiology consult Avoid AV ruby blocking agents Hold labetalol Closely monitor glucose levels 4. New EKG changes Patient was found to have mild ST elevation in V2 and V3 which are new. Discussed in detail with Dr. Parrish human resources coordinator about the EKG changes. He thinks those mild elevations that from repolarization. However we will closely monitor for any chest pain, troponin elevation given his CAD, morbidly obese, diabetes, hypertension history. Serial troponin and EKG Continuous telemetry monitoring 5. Nausea and vomiting Most likely gastroenteritis, he did mention that everybody at work is sick with stomach flu. Provide antiemetics as necessary Gentle hydration Follow-up CAT scan 6. Diabetes mellitus Patient has history of diabetes mellitus with episodes of hypoglycemia. Patient takes tresiba at home. Accu-Cheks every 6 hours Medium dose insulin sliding scale with NovoLog Consult endocrinology Clear liquid diet for now Closely monitor for any episodes of hypoglycemia 7. Chronic kidney disease Creatinine around 1.4-to 1.6. Mostly from diabetes and hypertension Bilateral lower extremity edema-continue home dose Lasix 40 mg daily Coronary artery disease-continue baby aspirin and statin 40 mg daily Obstructive sleep apnea not on CPAP Patient is full code Clear liquid diet for now given nausea and vomiting DVT prophylaxis subcutaneous heparin Pain pathway ordered
--- NOTE | 2017-07-01 21:02 | Cons- Cardiology ---
General Information and HPI Consulting Request Date of Consult: 07/01/17 Requested By: Radha Cope MD History of Present Illness: This patient is a 61 year old male with history of hypertension, dyslipidemia and diabetes. At baseline he is able to engage in mild to moderate activity without symptoms. Today, this patient was found on the ground unresponsive. EMS found the patient bradycardic and hypoglycemic and he was given an ampule of D50 and both atropine and glucagon. Upon arrival in the ER the patient was lucid with a normal heart rate. The patient denies chest pain, pressure or tightness, shortness of breath at his usual level of activity or palpitiations. He has rare episodes of lightheadedness. He reports orthopnea leg swelling with weeping. It should be noted that this patient has not followed up in the office for over a year and stopped or was taken off many of his medications. In 2016 the patient reported a moderate to severe, non-radiating chest pressure and, in the past he had some severe heartburn. A stress test showed an EF of 38% with a small partial fixed inferior defect but no ischemia. Cardiac workup also included an echocardiogram showing a normal EF of 70% with moderate left ventricular hypertrophy and impaired LV relaxation. He has mild left atiral enlargement, trace MR, TR and AI. Allergies/Medications Allergies: Coded Allergies: NO KNOWN ALLERGIES (11/19/13) Home Med List: Aspirin (Children's Aspirin) 81 MG TAB.CHEW 1 TAB PO DAILY HEART HEALTH ( Reported) Cholecalciferol (Vitamin D3) (Vitamin D3) 2,000 UNIT TABLET 1 TAB PO DAILY VITAMIN SUPPORT (Reported) Furosemide (Lasix) 40 MG TABLET 1 TAB PO DAILY HEART (Reported) Insulin Degludec (Tresiba Flextouch U-100) 100 UNIT/ML (3 ML) INSULN.PEN 84 UNITS SC DAILY DIABETES (Reported) Labetalol HCl 200 MG TABLET 1 TAB PO BID HEART (Reported) Potassium Chloride (Klor-Con M20) 20 MEQ TAB.ER.PRT 1 TAB PO DAILY LOW POTASSIUM Simvastatin (Simvastatin*) 40 MG TABLET 1 TAB PO DAILY CHOLESTEROL (Reported) Valsartan 160 MG TABLET 1 TAB PO DAILY HEART (Reported) Review of Systems Review of Systems: A review of systems is unremarkable. Past History Travel History Traveled to [place] past 21 day No Medical History Neurological: NONE EENT: NONE Cardiovascular: CHF, hypertension, hyperlipidemia Respiratory: obstructive sleep apnea, pneumonia Gastrointestinal: NONE Hepatic: NONE Renal: NONE Musculoskeletal: osteomyelitis Psychiatric: NONE Endocrine: diabetes Blood Disorders: NONE Cancer(s): NONE HORSE BUYER/Reproductive: NONE Surgical History Surgical History: left hip surgery left toe amputation for osteomyelitis, left toe amputation Family History Relations & Conditions If Any: FATHER (diabetes and of stomach cancer). FH: diabetes mellitus MOTHER (CVA and NE at age 60). Psychosocial History Where Do You Live? Home Who Do You Live With? self Services at Home: None Smoking Status: Never Smoked ETOH Use: occasional use Illicit Drug Use: denies illicit drug use Functional Ability ADLs Independent: dressing, eating, toileting, bathing. Ambulation: independent IADLs Independent: shopping, housework, finances, food prep, telephone, transportation , medication admin. Exam & Diagnostic Data Vital Signs and I&O Vital Signs Date Time Temp Pulse Resp B/P B/P Pulse O2 O2 Flow FiO2 Mean Ox Delivery Rate 07/01 1936 98.1 70 20 210/80 95 Room Air 07/01 1703 98.0 64 20 182/96 96 Room Air 07/01 1417 97.6 61 18 208/92 97 Room Air 07/01 1135 98.7 62 20 208/90 97 Room Air Intake & Output 07/01 1600 07/01 0800 07/01 0000 06/30 1600 06/30 0800 06/30 0000 Intake Total 490 Output Total 1200 Balance -710 Intake, IV 250 Intake, Oral 240 Output, Urine 1200 Patient 300 lb Weight Weight Reported by Patient Measurement Method Physical Exam: General: WD/overweight male in NAD; alert and oriented x 3 HEENT: NC/AT,PERRL, EOMI Neck: no JVD, no carotid bruit Heart: RRR with 2/6 systolic murmur Lungs: clear bilaterally ABdomen: soft, obese, NT, +ve bowel sounds Extremities: 3+ leg edema bilaterally with weeping legs Diagnostic Data EKG Results sinus rhythm with incomplete RBBB and 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 In addtion to an endocrine consult this patient will need to be monitored on telemetry to observe for recurrent bradycardia. Hold lbetolol for now. 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 Obtain an echocardiogram. There is no evidence to support an acute coronary syndrome at this time. Follow three sets of cardiac enzymes and continue aspirin and a statin. * This patient has severe hypertension which has likely precipitated mild renal insufficiency. He has not taken his medications as previously prescribed and has not followed up in the office. I was previously not inclined to have this patient on a beta jose but this was due to concern regarding bronchospasm more than for fear of bradycardia. He has not used his CPAP for a very long time and this has likely contributed to his hypertension. I would restart CPAP. The patient has evidence of right heart failure and has a very thickened heart with diastolic dysfunction that is almost certainly related to his long-standing hypertension. Begin nifedipine ER 30mg daily. Continue Valsartan or its equivalent at its maximum dosing. Begin a clonidine TTS1 patch. Obtain an echocardiogram. He should be on a low sodium diet. Consult Acknowledgment - Thank you for your consult request.
--- NOTE | 2017-07-02 03:16 | CT SCAN REPORT ---
EXAMINATION: CT ABDOMEN AND PELVIS WITHOUT CONTRAST CLINICAL INFORMATION: Abdominal pain, vomiting, rule out obstruction COMPARISON: 04/20/2015 TECHNIQUE: Multidetector volumetric imaging was performed from the superior aspect of the liver through the pubic symphysis. Sagittal and coronal reformatted images were obtained on the technologist's workstation. DLP: 1376.86 mGy-cm FINDINGS: LUNG BASES: There is partial visualization of small bilateral pleural effusions, right greater than left. Small pericardial effusion is also visualized. A small hiatal hernia is present. LIVER, GALLBLADDER, AND BILIARY TREE: The liver is normal in size, shape, and attenuation. No focal hepatic lesion or biliary ductal dilatation is present. A tiny calcification is noted in the proximal gallbladder. No pericholecystic inflammation. PANCREAS: There is partial fatty atrophy of the pancreas. SPLEEN: Unremarkable. There is a 1.8 cm soft tissue density structure medial to the inferior spleen which is suggestive of a splenule; this is unchanged from 04/20/2015. ADRENAL GLANDS: Unremarkable. KIDNEYS AND URETERS: The kidneys are normal in size, shape, and attenuation. No hydronephrosis, hydroureter, or calculi seen. BLADDER: Unremarkable. GASTROINTESTINAL TRACT: No evidence of bowel obstruction. No abnormal bowel wall thickening is seen. The appendix appears collapsed. ABDOMINAL WALL: No significant hernia is appreciated. LYMPH NODES: Normal. VASCULAR: The infrarenal IVC is noted to be left-sided. There is mild scattered calcification along the aorta. PELVIC VISCERA: The prostate gland appears borderline enlarged. OSSEOUS STRUCTURES: Proximal left femoral compression screw is partially visualized. Degenerative changes are noted in the spine. IMPRESSION: 1. No evidence of bowel obstruction. No acute findings identified in the abdomen/pelvis. 2. Small hiatal hernia. 3. Partial visualization of small bilateral pleural effusions and small pericardial effusion.
[2017-07-02 06:24] LABS: ABSOLUTE BASOPHIL COUNT 0 /CUMM (0.0-0.2); ABSOLUTE EOSINOPHIL COUNT 0 /CUMM (0.0-0.7); ABSOLUTE GRANULOCYTE CT 8.4 /CUMM (1.4-6.5); ABSOLUTE LYMPH COUNT 1.1 /CUMM (1.2-3.4); ABSOLUTE MONOCYTE COUNT 0.6 /CUMM (0.10-0.60); BASOPHIL % 0.3 % (0.0-2.0); EOSINOPHIL % 0.3 % (0-5); GRANULOCYTE % 82.3 % (42.2-75.2); HEMATOCRIT 41.7 % (42-52); MEAN CORPUSCULAR HGB 29.7 PG (27.0-31.0); MEAN CORPUSCULAR HGB CONC 32.7 G/DL (33.0-37.0); MEAN CORPUSCULAR VOLUME 90.9 FL (80.0-94.0); MEAN PLATELET VOLUME 8.4 FL (7.4-10.4); PLATELET COUNT 194 /CUMM (130-400); RBC DISTRIBUTION WIDTH 15.4 % (11.5-14.5); RED BLOOD CELL CT 4.59 /CUMM (4.70-6.10); WHITE BLOOD CELL COUNT 10.2 /CUMM (4.8-10.8)
--- NOTE | 2017-07-02 08:04 | PN- Housestaff ---
Kanchan MATOS,[facility] 07/02/17 0804: Subjective Follow-up For: Syncope EKG changes Bradycardia Hypoglycemia Subjective: Patient feels tired and lethargic but denies any chest pain, palpitations, headache, vision changes, numbness or weakness in any part of his body or lightheadedness/dizziness. States he checks his blood pressure at home on and off and it usually runs in 140s to 150s, never been this high. Review of Systems Constitutional: Reports: malaise. EENTM: Reports: no symptoms. Cardiovascular: Reports: no symptoms. Respiratory: Reports: no symptoms. Gastrointestinal: Reports: no symptoms. Genitourinary: Reports: no symptoms. Musculoskeletal: Reports: no symptoms. Skin: Reports: no symptoms. Neurological/Psychological: Reports: no symptoms. Hematologic/Endocrine: Reports: no symptoms. Immunologic/Allergic: Reports: no symptoms. Objective Last 24 Hrs of Vital Signs/I&O Vital Signs Date Time Temp Pulse Resp B/P B/P Pulse O2 O2 Flow FiO2 Mean Ox Delivery Rate 07/02 1550 61 192/84 07/02 1419 98.6 63 20 190/88 95 Room Air 07/02 1217 69 182/70 07/02 1217 69 182/70 07/02 1212 98.4 69 15 182/70 95 Room Air Room Air 07/02 1055 98.5 71 18 180/70 96 Room Air 07/02 0844 98.4 63 18 170/70 96 Room Air 07/02 0618 98.6 81 18 185/79 96 Room Air 07/02 0516 200/90 07/02 0451 87 18 194/92 96 Room Air 07/02 0421 196/98 07/02 0358 192/96 07/02 0342 192/100 07/02 0332 218/102 07/02 0328 98.3 88 18 208/102 07/02 0325 98.3 88 18 208/102 07/02 0325 208/102 07/02 0229 98.3 88 18 210/100 95 Room Air 07/02 0153 86 18 208/92 95 Room Air 07/02 0114 98.2 87 18 218/98 07/02 0114 98.2 87 18 218/98 07/02 0113 87 18 218/98 95 Room Air 07/02 0014 215/98 07/01 2349 98.2 84 18 223/98 02/15 2347 84 18 223/98 95 Room Air 07/01 2257 80 196/84 07/01 2201 98.2 82 20 190/70 95 Room Air 07/01 1936 98.1 70 20 210/80 95 Room Air 07/01 1703 98.0 64 20 182/96 96 Room Air Intake & Output 07/02 1600 07/02 0800 07/02 0000 Intake Total Output Total Balance Patient 300 lb Weight Physical Exam General Appearance: Alert, Oriented X3, Cooperative, No Acute Distress Skin: No Rashes, No Breakdown Cardiovascular: Regular Rate, Normal S1, Normal S2 Lungs: Clear to Auscultation, Normal Air Movement Abdomen: Normal Bowel Sounds, Soft, No Tenderness, distended (obese) Extremities: No Clubbing, No Cyanosis, chronic venous stasis changes with open wounds, +1 pittiing edema Current Medications: Current Medications Sig/Jacque Start time Last Medication Dose Route Stop Time Status Admin Acetaminophen 650 MG Q6P PRN 07/01 1545 AC PO Acetaminophen 1,000 MG Q6P PRN 07/01 1545 AC IV Aspirin 81 MG DAILY 07/01 1715 AC 07/02 PO 1217 Atorvastatin Calcium 40 MG 1700 07/02 1700 AC PO Cholecalciferol 1,000 IU DAILY 07/01 1715 AC 07/02 PO 1217 Clonidine 1 PAT Q168 07/02 0100 AC 07/02 TOP 0114 Dextrose 0 .STK-MED ONE 07/01 2340 DC IV Dextrose 25 GM ONCE ONE 07/01 2315 DC 07/01 IV 07/01 2316 2341 Dextrose 25 GM ONCE ONE 07/01 1745 DC 07/01 IV 07/01 1746 1740 Furosemide 40 MG DAILY 07/01 1715 AC 07/02 PO 1217 Heparin Sodium 0 .STK-MED ONE 07/02 0625 DC (Porcine) .ROUTE Heparin Sodium 0 .STK-MED ONE 07/01 2258 DC (Porcine) .ROUTE Heparin Sodium 5,000 UNIT Q8 07/01 2200 AC 07/02 (Porcine) SC 1415 Hydralazine HCl 10 MG ONCE ONE 07/02 0330 CAN IV 07/02 0331 Hydralazine HCl 5 MG ONCE ONE 07/02 0330 DC 07/02 IV 07/02 0331 0325 Hydralazine HCl 0 .STK-MED ONE 07/02 0324 DC .ROUTE Hydralazine HCl 10 MG ONCE ONE 07/01 2315 DC 07/01 PO 07/01 2316 2349 Insulin Aspart 0 TIDAC/HS 07/02 1200 AC 07/02 SC 1231 Insulin Aspart 0 TIDAC 07/02 0800 DC SC Insulin Detemir 18 UNITS BID 07/02 2200 AC SC Losartan Potassium 100 MG DAILY 07/02 1000 AC 07/02 PO 1217 Losartan Potassium 0 .STK-MED ONE 07/02 0331 DC PO Losartan Potassium 50 MG ONCE ONE 07/02 0330 DC 07/02 PO 07/02 0331 0328 Losartan Potassium 50 MG DAILY 07/01 1716 DC 07/01 PO 1755 Nifedipine 30 MG DAILY 07/02 0100 AC 07/02 PO 1217 Ondansetron HCl 0 .STK-MED ONE 07/01 2252 DC .ROUTE Ondansetron HCl 4 MG ONCE ONE 07/01 2245 DC 07/01 IV 07/01 224 2251 Ondansetron HCl 0 .STK-MED ONE 07/01 1848 DC .ROUTE Ondansetron HCl 4 MG ONCE ONE 07/01 1845 DC 07/01 IV 07/01 1846 1848 Potassium Chloride 40 MEQ ONCE ONE 07/02 1415 DC PO 07/02 1416 Potassium Chloride 20 MEQ DAILY 07/01 1715 AC 07/02 PO 1217 Promethazine HCl 0 .STK-MED ONE 07/02 0818 DC .ROUTE Promethazine HCl 25 MG ONCE ONE 07/02 0800 DC 07/02 IV 07/02 0801 0821 Promethazine HCl 0 .STK-MED ONE 07/01 2331 DC .ROUTE Promethazine HCl 25 MG ONCE ONE 07/01 2330 DC 07/01 IV 07/01 2331 2334 Sodium Chloride 1,000 ML ONCE ONE 07/01 1130 DC 07/01 IV 07/01 1809 1242 Last 24 Hrs of Lab/Jordin Results Last 24 Hrs of Labs/Mics: Laboratory Tests 07/02/17 0616: Anion Gap 11, Estimated GFR 51 L, BUN/Creatinine Ratio 18.6, CBC w Diff NO MAN DIFF REQ, RBC 4.59 L, MCV 90.9, MCH 29.7, MCHC 32.7 L, RDW 15.4 H, MPV 8.4, Gran % 82.3 H, Lymphocytes % 11.2 L, Monocytes % 5.9, Eosinophils % 0.3, Basophils % 0.3, Absolute Granulocytes 8.4 H, Absolute Lymphocytes 1.1 L, Absolute Monocytes 0.6, Absolute Eosinophils 0, Absolute Basophils 0 07/02/17 0006: Troponin I 0.02 07/01/17 1759: Troponin I 0.02 Assessment/Plan Assessment: Assessment: Mr. Miramontes is a 61-year-old gentleman with past medical history significant for ? ?TIA,CAD, CHF, hypertension, hyperlipidemia, objective sleep apnea on CPAP, pneumonia, osteomyelitis status post bilateral second toe amputation and diabetes was brought in by EMS after he was found unresponsive at home. A/P 1. Syncope; Could be from hypoglycemia or bradycardia - No further episodes of bradycardia noted. - Endocrinology Consult; appreciate recommendations 2. EKG changes; ?? Silent ME (patient does not have any chest pain but have ST elevations on EKG (old vs new?) And complains of nausea, had one episode of vomiting in the ER and epigastric discomfort which could be an atypical presentation of ME in diabetics). -ACS ruled out with negative troponins and EKG 3. - Cardiology consult obtained. Dr. Parrish suggests the EKG changes are from repolarization changes from the old anterior infarct. - Echocardiogram pending - Continue aspirin and statin. 3. Hypertensive urgency; Patient was found to have a blood pressure of 280/90 in the ER but the patient does admit to not taking his blood pressure medications this morning. - Blood pressure continues to remain high with systolic blood pressure in 180s to 90s. - Was added on Patient was started on nifedipine and Clonidine patch yesterday. - We'll start the patient on hydralazine 25 mg every 6. 4. Nausea/vomiting; Reports sick contacts at work - Avoid Zofran(prolonged QTC) - Phenergan for nausea/vomiting if needed. -Started on carbohydrate consistent diet. - CT abdomen and pelvis negative for any acute pathology. 5. Hypokalemia; potassium level of 3.4 - We'll replete potassium - Repeat BP in a.m. 6. Diabetes - We'll hold Tresiba -Patient started on insulin sliding scale TIDAC/at bedtime. - Accu-Cheks every 6 hours - Endocrinology recommendations appreciated. 7. Lower extremity edema; - Continue Lasix 40 mg daily. - Keep the legs elevated. 8. Coronary artery disease; - Continue aspirin and statin. DVT prophylaxis; subcutaneous heparin Patient is full code Problem List: 1. Diabetes 2. Syncope 3. Hypoglycemia 4. Bradycardia 5. HTN (hypertension) Pain Ratin Pain Location: None Pain Goal: Remain pain free Pain Plan: None Tomorrow's Labs & Rationales: CBCs, BEP Kathryn Thornton MD 07/02/17 1233: Attending MD Review Statement Attending Statement Attending MD Statement: examined this patient, discuss w/resident/PA/[employer], agreed w/resident/PA/[employer], reviewed EMR data (avail), discussed with nursing, discussed with case mgmt, reviewed images Attending Assessment/Plan: 61-year-old fairly complex male with past medical history of diabetes on insulin with diabetes and peripheral arterial disease previous amputations and osteo, congestive heart failure, hypertension was brought in with an episode of syncope and uncontrolled hypertension. He has hypertensive urgency and has required multiple medications currently Procardia, Catapres patch, losartan and Lasix to maintain his blood pressure. He was also hypoglycemic and bradycardic. Appreciate endocrinology follow-up who is helping us with the hypoglycemia. We need to make sure there is no septic or infectious cause of all of the symptoms, get a CT head given the confusion with the hypotension and bradycardia and follow closely.
--- NOTE | 2017-07-02 10:26 | Cons- Endocrinology ---
General Information and HPI Consulting Request Date of Consult: 07/02/17 Requested By: medical team Reason for Consult: management of uncontrolled diabetes type 2 and severe hypoglycemia Source of Information: patient, old records Exam Limitations: no limitations History of Present Illness: Mr. Miramontes is a 61-year-old gentleman with past medical history significant for possible TIA, CHF, hypertension, hyperlipidemia, objective sleep apnea on CPAP, pneumonia, osteomyelitis status post bilateral second toe amputation and diabetes type 2 was brought in by EMS after he was found unresponsive at home. He was on Tresiba 84 units daily and Humalog coverage before meals when his FSG is above 150. However, over the past 2-3 weeks, he was having glucose level in the 50s and 60s. In hospital, his glucose levels were 63, 68, 76, 143, 118, 90 and 120. He was put on low dose Novolog coverage before meals. Allergies/Medications Allergies: Coded Allergies: NO KNOWN ALLERGIES (11/19/13) Home Med List: Aspirin (Children's Aspirin) 81 MG TAB.CHEW 1 TAB PO DAILY HEART HEALTH ( Reported) Cholecalciferol (Vitamin D3) (Vitamin D3) 2,000 UNIT TABLET 1 TAB PO DAILY VITAMIN SUPPORT (Reported) Furosemide (Lasix) 40 MG TABLET 1 TAB PO DAILY HEART (Reported) Insulin Degludec (Tresiba Flextouch U-100) 100 UNIT/ML (3 ML) INSULN.PEN 84 UNITS SC DAILY DIABETES (Reported) Labetalol HCl 200 MG TABLET 1 TAB PO BID HEART (Reported) Potassium Chloride (Klor-Con M20) 20 MEQ TAB.ER.PRT 1 TAB PO DAILY LOW POTASSIUM Simvastatin (Simvastatin*) 40 MG TABLET 1 TAB PO DAILY CHOLESTEROL (Reported) Valsartan 160 MG TABLET 1 TAB PO DAILY HEART (Reported) Review of Systems Review of Systems Constitutional: Reports: see HPI. Cardiovascular: Denies: chest pain. Respiratory: Denies: short of breath. GI: Denies: abdominal pain. Musculoskeletal: Denies: back pain. Hematologic/Endocrine: Reports: see HPI. Past History Travel History Traveled to [place] past 21 day No Medical History Neurological: NONE EENT: NONE Cardiovascular: CHF, hypertension, hyperlipidemia Respiratory: obstructive sleep apnea, pneumonia Gastrointestinal: NONE Hepatic: NONE Renal: NONE Musculoskeletal: osteomyelitis Psychiatric: NONE Endocrine: diabetes Blood Disorders: NONE Cancer(s): NONE WORK FORCE ADVISOR/Reproductive: NONE Surgical History Surgical History: left hip surgery left toe amputation for osteomyelitis left toe amputation Family History Relations & Conditions If Any: FATHER (diabetes and of stomach cancer). FH: diabetes mellitus MOTHER (CVA and NM at age 60). Psychosocial History Where Do You Live? Home Who Do You Live With? self Services at Home: None Smoking Status: Never Smoked ETOH Use: occasional use Illicit Drug Use: denies illicit drug use Functional Ability ADLs Independent: dressing, eating, toileting, bathing. Ambulation: independent IADLs Independent: shopping, housework, finances, food prep, telephone, transportation , medication admin. Exam & Diagnostic Data Last 24 Hrs of Vital Signs/I&O Vital Signs Date Time Temp Pulse Resp B/P B/P Pulse O2 O2 Flow FiO2 Mean Ox Delivery Rate 07/02 0844 98.4 63 18 170/70 96 Room Air 07/02 0618 98.6 81 18 185/79 96 Room Air 07/02 0516 200/90 07/02 0451 87 18 194/92 96 Room Air 07/02 0421 196/98 07/02 0358 192/96 07/02 0342 192/100 07/02 0332 218/102 07/02 0328 98.3 88 18 208/102 07/02 0325 98.3 88 18 208/102 07/02 0325 208/102 07/02 0229 98.3 88 18 210/100 95 Room Air 07/02 0153 86 18 208/92 95 Room Air 07/02 0114 98.2 87 18 218/98 07/02 0114 98.2 87 18 218/98 07/02 0113 87 18 218/98 95 Room Air 07/02 0014 215/98 07/01 2349 98.2 84 18 223/98 07/01 2347 84 18 223/98 95 Room Air 07/01 2257 80 196/84 07/01 2201 98.2 82 20 190/70 95 Room Air 07/01 1936 98.1 70 20 210/80 95 Room Air 07/01 1703 98.0 64 20 182/96 96 Room Air 07/01 1417 97.6 61 18 208/92 97 Room Air 07/01 1135 98.7 62 20 208/90 97 Room Air Intake & Output 07/02 1600 16 0800 07/02 0000 Intake Total Output Total Balance Patient 300 lb Weight Physical Exam General Appearance: no apparent distress Neck: normal inspection Respiratory: lungs clear Cardiovascular: regular rate/rhythm Gastrointestinal: normal bowel sounds Extremities: trace edema; s/p toe amputation Labs/Jrodin Results: Laboratory Tests 07/02 07/02 07/01 07/01 0616 0006 1759 1228 Chemistry Sodium (137 - 145 mmol/L) 145 Potassium (3.5 - 5.1 mmol/L) 3.4 L Chloride (98 - 107 mmol/L) 107 Carbon Dioxide (22 - 30 mmol/L) 28 Anion Gap (5 - 16) 11 BUN (9 - 20 mg/dL) 26 H Creatinine (0.7 - 1.2 mg/dL) 1.4 H Estimated GFR (>60 ml/min) 51 L BUN/Creatinine Ratio (7 - 25 %) 18.6 Troponin I (<0.11 ng/ml) 0.02 0.02 Hematology CBC w Diff NO MAN DIFF REQ WBC (4.8 - 10.8 /CUMM) 10.2 RBC (4.70 - 6.10 /CUMM) 4.59 L Hgb (14.0 - 18.0 G/DL) 13.6 L Hct (42 - 52 %) 41.7 L MCV (80.0 - 94.0 FL) 90.9 MCH (27.0 - 31.0 PG) 29.7 MCHC (33.0 - 37.0 G/DL) 32.7 L RDW (11.5 - 14.5 %) 15.4 H Plt Count (130 - 400 /CUMM) 194 MPV (7.4 - 10.4 FL) 8.4 Gran % (42.2 - 75.2 %) 82.3 H Lymphocytes % (20.5 - 51.1 %) 11.2 L Monocytes % (1.7 - 9.3 %) 5.9 Eosinophils % (0 - 5 %) 0.3 Basophils % (0.0 - 2.0 %) 0.3 Absolute Granulocytes (1.4 - 6.5 /CUMM) 8.4 H Absolute Lymphocytes (1.2 - 3.4 /CUMM) 1.1 L Absolute Monocytes (0.10 - 0.60 /CUMM) 0.6 Absolute Eosinophils (0.0 - 0.7 /CUMM) 0 Absolute Basophils (0.0 - 0.2 /CUMM) 0 Toxicology Urine Opiates Screen (>2000 NG/ML) < 100.00 Methadone Screen (>300 NG/ML) < 40 Barbiturate Screen (>200 NG/ML) < 60 Ur Phencyclidine Scrn (>25 NG/ML) < 6.00 Amphetamines Screen (>1000 NG/ML) < 100 U Benzodiazepines Scrn (>200 NG/ML) < 85 Urine Cocaine Screen (>300 NG/ML) < 50 Urine Cannabis Screen (>50 NG/ML) < 5.00 07/01 1125 Chemistry Sodium (137 - 145 mmol/L) 143 Potassium (3.5 - 5.1 mmol/L) 3.3 L Chloride (98 - 107 mmol/L) 103 Carbon Dioxide (22 - 30 mmol/L) 29 Anion Gap (5 - 16) 10 BUN (9 - 20 mg/dL) 29 H Creatinine (0.7 - 1.2 mg/dL) 1.5 H Estimated GFR (>60 ml/min) 47 L BUN/Creatinine Ratio (7 - 25 %) 19.3 Glucose (65 - 99 mg/dL) 149 H Calcium (8.4 - 10.2 mg/dL) 8.7 Total Bilirubin (0.2 - 1.3 mg/dL) 0.6 AST (17 - 59 U/L) 22 ALT (21 - 72 U/L) 43 Alkaline Phosphatase (< 127 U/L) 114 Creatine Kinase (55 - 170 U/L) 114 Troponin I (<0.11 ng/ml) 0.02 Total Protein (6.3 - 8.2 g/dL) 6.2 L Albumin (3.5 - 5.0 g/dL) 3.6 Globulin (1.9 - 4.2 gm/dL) 2.6 Albumin/Globulin Ratio (1.1 - 2.2 %) 1.4 Hematology CBC w Diff NO MAN DIFF REQ WBC (4.8 - 10.8 /CUMM) 8.0 RBC (4.70 - 6.10 /CUMM) 4.31 L Hgb (14.0 - 18.0 G/DL) 13.2 L Hct (42 - 52 %) 38.7 L MCV (80.0 - 94.0 FL) 89.7 MCH (27.0 - 31.0 PG) 30.7 MCHC (33.0 - 37.0 G/DL) 34.2 RDW (11.5 - 14.5 %) 14.8 H Plt Count (130 - 400 /CUMM) 171 MPV (7.4 - 10.4 FL) 8.5 Gran % (42.2 - 75.2 %) 86.9 H Lymphocytes % (20.5 - 51.1 %) 8.0 L Monocytes % (1.7 - 9.3 %) 3.4 Eosinophils % (0 - 5 %) 1.5 Basophils % (0.0 - 2.0 %) 0.2 Absolute Granulocytes (1.4 - 6.5 /CUMM) 6.9 H Absolute Lymphocytes (1.2 - 3.4 /CUMM) 0.6 L Absolute Monocytes (0.10 - 0.60 /CUMM) 0.3 Absolute Eosinophils (0.0 - 0.7 /CUMM) 0.1 Absolute Basophils (0.0 - 0.2 /CUMM) 0 Assessment/Plan Assessment/Plan Mr. Miramontes is a 61-year-old gentleman with past medical history significant for possible TIA, CHF, hypertension, hyperlipidemia, objective sleep apnea on CPAP, pneumonia, osteomyelitis status post bilateral second toe amputation and diabetes type 2 was brought in by EMS after he was found unresponsive. He was on Tresiba 84 units daily at home. He was admitted to for severe hypoglycemia due to too much basal insulin. DM management: 1. restart Levemir 18 units twice a day starting tonight; 2. adjust Novolog coverage before meals and Novolog coverage at bedtime; detail see the inpatient DM orders; 3. monitor FSGs; snack at bedtime if FSG is less than 140; 4. monitor FSGs. will follow. Inpatient Diabetes Orders Before Each Meal: Bolus Insulin: Novolog < 80 mg/dl: no coverage 80-100 mg/dl: 6 units 101-120 mg/dl: 6 units 121-150 mg/dl: 6 units 151-200 mg/dl: 8 units 201-250 mg/dl: 10 units 251-300 mg/dl: 12 units 301-350 mg/dl: 14 units 351-400 mg/dl: 16 units > 400 mg/dl: 18 units Bedtime: Bolus Insulin: Novolog < 80 mg/dl: no coverage 80-100 mg/dl: no coverage 101-120 mg/dl: no coverage 121-150 mg/dl: no coverage 151-200 mg/dl: no coverage 201-250 mg/dl: no coverage 251-300 mg/dl: 2 units 301-350 mg/dl: 3 units 351-400 mg/dl: 4 units > 400 mg/dl: 5 units Consult Acknowledgment - Thank you for your consult request.
--- NOTE | 2017-07-02 12:48 | CT SCAN REPORT ---
EXAMINATION: CT HEAD WITHOUT CONTRAST CLINICAL INFORMATION: Transient altered mental status and severe hypertension. Evaluate for intracranial lesion or bleed. COMPARISON: None TECHNIQUE: Contiguous axial imaging was performed from the skull base to vertex without intravenous administration of contrast. DLP: 620 mGy-cm FINDINGS: Brain parenchyma: No acute findings. Hernandez-white matter differentiation is well preserved. No evidence of a major vascular territory infarction, hemorrhage, mass or midline shift. Patchy hypoattenuation within supratentorial white matter suggestive of chronic, moderate microangiopathy. Probable old, small lacunar infarction in the left gangliocapsular region. Cerebrospinal fluid spaces: Unremarkable. No hydrocephalus or extra-axial fluid collections. Cerebellum and brainstem: Unremarkable. The 4th ventricle is midline in position. The cerebellopontine angles are normal. Calvarium and temporomandibular joints: Calvarium is intact. Mastoid air cells and middle ear cavities are well aerated. The TMJs are normal. Paranasal sinuses and orbits: Mucosal thickening of bilateral ethmoid air cells. Also, mild mucosal thickening of right sphenoid sinus and inferior right frontal sinus without air-fluid levels. Lenses have been extracted from each globe. Other findings: No acute findings in the visualized extracranial soft tissues. IMPRESSION: 1. No acute intracranial pathology. 2. Findings suggestive of chronic, moderate small vessel ischemic changes of the supratentorial white matter.
[2017-07-02 14:19] VITALS: BP 190/88
[2017-07-02 15:50] VITALS: BP 192/84
--- NOTE | 2017-07-02 18:54 | PN- Cardiology ---
Subjective Subjective: * No complaints of chest discomfort, shortness of breath, lightheadedness or palpitations. He does have some leg swelling. * No bradycardia on telemetry * Normal EF of echo with severe myocardial thickening and diastolic dysfunction. * creatinine 1.4 with potassium 3.4 * Patient remains very hypertensive. Objective Vital Signs and I&Os Vital Signs Date Time Temp Pulse Resp B/P B/P Pulse O2 O2 Flow FiO2 Mean Ox Delivery Rate 07/02 1734 63 192/84 07/02 1550 61 192/84 07/02 1419 98.6 63 20 190/88 95 Room Air 07/02 1217 69 182/70 07/02 1217 69 182/70 07/02 1212 98.4 69 15 182/70 95 Room Air Room Air 07/02 1055 98.5 71 18 180/70 96 Room Air 07/02 0844 98.4 63 18 170/70 96 Room Air 07/02 0618 98.6 81 18 185/79 96 Room Air 07/02 0516 200/90 07/02 0451 87 18 194/92 96 Room Air 07/02 0421 196/98 07/02 0358 192/96 07/02 0342 192/100 07/02 0332 218/102 07/02 0328 98.3 88 18 208/102 07/02 0325 98.3 88 18 208/102 /16 0325 208/102 16 0229 98.3 88 18 210/100 95 Room Air 07/02 0153 86 18 208/92 95 Room Air 07/02 0114 98.2 87 18 218/98 07/02 0114 98.2 87 18 218/98 07/02 0113 87 18 218/98 95 Room Air 07/02 0014 215/98 07/01 2349 98.2 84 18 223/98 07/01 2347 84 18 223/98 95 Room Air 07/01 2257 80 196/84 07/01 2201 98.2 82 20 190/70 95 Room Air 07/01 1936 98.1 70 20 210/80 95 Room Air Intake & Output 07/02 1600 07/02 0800 07/02 0000 07/01 1600 07/01 0800 07/01 0000 Intake Total 360 490 Output Total 1200 Balance 360 -710 Intake, IV 250 Intake, Oral 360 240 Output, Urine 1200 Patient 300 lb 300 lb Weight Weight Reported by Patient Measurement Method Physical Exam: General: WD/overweight male in NAD; alert and oriented x 3 HEENT: NC/AT,PERRL, EOMI Neck: no JVD, no carotid bruit Heart: RRR with 2/6 systolic murmur Lungs: clear bilaterally ABdomen: soft, obese, NT, +ve bowel sounds Extremities: 2+ leg edema bilaterally Assessment/Plan Assessment/Plan * This patient had a syncopal episode that was most likely due to hypoglycemia. There are no current findings of bradycardia. I would avoid beta blockers however since bradycardia was noted by EMS while on Labetolol. 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 His echocardiogram does not show any significant regional wall motion abnormality. Repeat his ECG. There is no evidence to support an acute coronary syndrome at this time. His ST elevations are likely repolarization changes in the setting of an incomplete BBB and are likely related to LVH from hypertensive heart disease. Continue aspirin and a statin. * This patient has severe hypertension which has likely precipitated mild renal insufficiency. He has not taken his medications as previously prescribed and has not followed up in the office. I was previously not inclined to have this patient on a beta joes but this was due to concern regarding bronchospasm more than for fear of bradycardia. Nevertheless, considering his history of bradycardia I would not restart a beta jose. He has not used his CPAP for a very long time and this has likely contributed to his hypertension. I would restart CPAP. The patient has evidence of a very thickened heart with diastolic dysfunction that is almost certainly related to his long-standing hypertension. Increase Nifedipine ER to 60mg daily. Continue Valsartan or its equivalent at its maximum dosing. Increase hydralzine to 75mg BID and increase as necessary. I would not prescribe medications TID in this patient. Continue a clonidine TTS1 patch and Lasix 40mg daily. He should be on a low sodium diet. Continue telemetry? Yes
--- NOTE | 2017-07-02 19:44 | ECHOCARDIOGRAM REPORT ---
JASON HOPPER Age: 61 : 1955 Gender: M Exam Date: 07/01/2017 20:09 Exam Location: ER Ht (in): 72 Wt (lb): 300 BSA: 2.69 BP: 182 / 96 Ordering Physician: Philly Juan MD Referring Physician: Jose Manuel Parrish MD, PhD Technologist: Nettie Davis [facility] Room Number: [id number] Indications: HEART FAILURE Rhythm: Sinus Technical Quality: good FINDINGS Left Ventricle Normal left ventricular size with moderate left ventricular hypertrophy. Normal systolic function with no obvious regional wall motion abnormalities. Diastolic filling pattern is consistent with impaired LV relaxation. The ejection fraction is visually estimated at 70%. Right Ventricle The right ventricle is normal in size and function. Right Atrium The right atrium is normal in size. Left Atrium The left atrium is moderately enlarged. The interatrial septum is intact. Mitral Valve The mitral valve demonstrates mild posterior annular calcifications with normal function. There is no mitral regurgitation. Aortic Valve Structurally normal aortic valve without significant sclerosis or stenosis. There is no aortic regurgitation. Tricuspid Valve The tricuspid valve is normal in structure and function. There is trace to mild tricuspid regurgitation. Pulmonary artery systolic pressure is normal. Pulmonic Valve Structurally normal pulmonic valve. There is no pulmonic regurgitation. Pericardium Normal pericardium without effusion. No pleural effusion. Great Vessels Normal aortic root dimension. The aortic arch and great vessels are well seen and are normal. CONCLUSIONS 1. Normal EF of 70% with impaired LV relaxation. 2. Moderate left ventricular hypertrophy. 3. Trace to mild tricuspid regurgitation. 4. Moderate left atrial enlargement. Jose Manuel Parrish M.D. (Electronically Signed) Final Date: 02 July 2017 19:43 MEASUREMENTS (Male / Female) Normal Values 2D ECHO LV Diastolic Diameter PLAX 4.5 cm 4.2 - 5.9 / 3.9 - 5.3 cm LV Systolic Diameter PLAX 2.8 cm 2.1 - 4.0 cm LV Fractional Shortening PLAX 37.8 % 25 - 46 % LV Ejection Fraction 2D Teich 68.0 % IVS Diastolic Thickness 1.8 cm LVPW Diastolic Thickness 1.8 cm LV Relative Wall Thickness 0.8 RV Internal Dim ED PLAX 2.6 cm 1.9 - 3.8 cm LVOT Diameter 2.1 cm Aortic Root Diameter 4.4 cm LA Systolic Diameter LX 5.0 cm 3.0 - 4.0 / 2.7 - 3.8 cm LA Volume 56.0 cm 18 - 58 / 22 - 52 cm Ascending Aorta Diameter 3.8 cm DOPPLER AV Peak Velocity 160.0 cm/s AV Peak Gradient 10.2 mmHg AV Mean Velocity 104.0 cm/s AV Mean Gradient 5.0 mmHg AV Velocity Time Integral 36.1 cm LVOT Peak Velocity 146.0 cm/s LVOT Peak Gradient 8.5 mmHg LVOT Mean Velocity 86.7 cm/s LVOT Mean Gradient 4.0 mmHg LVOT Velocity Time Integral 31.2 cm LVOT Stroke Volume 108.1 cm AV Area Cont Eq vti 3.0 cm AV Area Cont Eq pk 3.2 cm MV Peak Velocity 161.0 cm/s MV Peak Gradient 10.4 mmHg MV Mean Velocity 109.0 cm/s MV Mean Gradient 5.0 mmHg Mitral E Point Velocity 139.0 cm/s Mitral A Point Velocity 166.0 cm/s Mitral E to A Ratio 0.8 MV PHT Velocity 166.0 cm/s MV Deceleration Cocke 457.0 cm/s MV Pressure Half Time 109.0 ms MV Area PHT 2.0 cm MV Deceleration Time 409.0 ms TR Peak Velocity 322.0 cm/s TR Peak Gradient 41.5 mmHg Right Atrial Pressure 5.0 mmHg Pulmonary Artery Systolic Pressu 46.5 mmHg Right Ventricular Systolic Press 46.5 mmHg PV Peak Velocity 109.0 cm/s PV Peak Gradient 4.8 mmHg PV Mean Velocity 76.1 cm/s PV Mean Gradient 3.0 mmHg PV Velocity Time Integral 24.8 cm LV E' Lateral Velocity 6.3 cm/s Mitral E to LV E' Lateral Ratio 21.9 LV E' Septal Velocity 4.7 cm/s Mitral E to LV E' Septal Ratio 29.7
[2017-07-02 22:55] VITALS: BP 160/84
[2017-07-03 06:19] VITALS: BP 162/60
[2017-07-03 08:17] LABS: ABSOLUTE BASOPHIL COUNT 0.1 /CUMM (0.0-0.2); ABSOLUTE EOSINOPHIL COUNT 0.4 /CUMM (0.0-0.7); ABSOLUTE GRANULOCYTE CT 3.8 /CUMM (1.4-6.5); ABSOLUTE MONOCYTE COUNT 0.6 /CUMM (0.10-0.60); BASOPHIL % 0.9 % (0.0-2.0); EOSINOPHIL % 5.5 % (0-5); GRANULOCYTE % 56.2 % (42.2-75.2); MEAN CORPUSCULAR HGB 30.6 PG (27.0-31.0); MEAN CORPUSCULAR HGB CONC 33.1 G/DL (33.0-37.0); MEAN CORPUSCULAR VOLUME 92.2 FL (80.0-94.0); MEAN PLATELET VOLUME 8.9 FL (7.4-10.4); PLATELET COUNT 182 /CUMM (130-400); RBC DISTRIBUTION WIDTH 15.5 % (11.5-14.5); RED BLOOD CELL CT 4.23 /CUMM (4.70-6.10); WHITE BLOOD CELL COUNT 6.8 /CUMM (4.8-10.8)
--- NOTE | 2017-07-03 08:57 | PN- Housestaff ---
Юлия Garrett 07/03/17 0857: Subjective Follow-up For: Syncope EKG changes Bradycardia Hypoglycemia HTN Urgency Tele-Events Since Last Visit: NSR, junctional beats HR 63-72 Subjective: Patient reports no complaints. He denies lightheadedness, SOB, palpitations, paresthesias, numbeness, weakness. Overnight BP 160s-170s, FSG 106. Review of Systems Constitutional: Reports: see HPI. Objective Last 24 Hrs of Vital Signs/I&O Vital Signs Date Time Temp Pulse Resp B/P B/P Pulse O2 O2 Flow FiO2 Mean Ox Delivery Rate 07/03 0847 70 162/60 07/03 0846 70 162/60 07/03 0845 70 162/60 07/03 0619 98.7 70 22 162/60 95 Room Air 07/02 2322 66 176/82 07/02 2255 99.2 32 22 160/84 94 Room Air 07/02 1734 63 192/84 07/02 1550 61 192/84 07/02 1419 98.6 63 20 190/88 95 Room Air 07/02 1217 69 182/70 07/02 1217 69 182/70 07/02 1212 98.4 69 15 182/70 95 Room Air Room Air Physical Exam General Appearance: Alert, Oriented X3, Cooperative, No Acute Distress Cardiovascular: Regular Rate, Normal S1, Normal S2, No Murmurs Lungs: Clear to Auscultation, Normal Air Movement Abdomen: Normal Bowel Sounds, Soft, No Tenderness Extremities: BL erythematous skin discoloration, 1+ pitting edema, LLE dressing intact without drainage Current Medications: Current Medications Sig/Jacque Start time Last Medication Dose Route Stop Time Status Admin Acetaminophen 650 MG Q6P PRN 07/01 1545 AC PO Acetaminophen 1,000 MG Q6P PRN 07/01 1545 AC IV Aspirin 81 MG DAILY 07/01 1715 AC 07/03 PO 0843 Atorvastatin Calcium 40 MG 1700 07/02 1700 AC 07/02 PO 1734 Cholecalciferol 1,000 IU DAILY 07/01 1715 AC 07/03 PO 0843 Clonidine 1 PAT Q168 07/02 0100 AC 07/02 TOP 0114 Furosemide 40 MG DAILY 07/01 1715 AC 07/03 PO 0843 Heparin Sodium 5,000 UNIT Q8 07/01 2200 AC 07/03 (Porcine) SC 0755 Hydralazine HCl 75 MG BID 07/02 2200 AC 07/03 PO 0845 Hydralazine HCl 25 MG 4 TIMES/DAY 07/02 1800 DC 07/02 PO 1734 Influenza Virus 0.5 ML ONCE ONE 07/02 1815 DC 07/03 Vaccine IM 07/02 181 0852 Insulin Aspart 0 TIDAC/HS 07/02 1200 AC 07/03 SC 0847 Insulin Detemir 18 UNITS BID 07/02 2200 AC 07/03 SC 0848 Losartan Potassium 100 MG DAILY 07/02 1000 AC 07/03 PO 0847 Nifedipine 60 MG DAILY 07/03 1000 AC 07/03 PO 0846 Nifedipine 30 MG DAILY 07/02 0100 DC 07/02 PO 1217 Potassium Chloride 40 MEQ ONCE ONE 07/02 1700 DC PO 07/02 1701 Potassium Chloride 40 MEQ ONCE ONE 07/02 1415 DC 07/02 PO 07/02 1416 1734 Potassium Chloride 20 MEQ DAILY 07/01 1715 AC 07/03 PO 0843 Last 24 Hrs of Lab/Jordin Results Last 24 Hrs of Labs/Mics: Laboratory Tests 07/03/17 0624: Anion Gap 10, Estimated GFR 38 L, BUN/Creatinine Ratio 15.0, CBC w Diff NO MAN DIFF REQ, RBC 4.23 L, MCV 92.2, MCH 30.6, MCHC 33.1, RDW 15.5 H, MPV 8.9, Gran % 56.2, Lymphocytes % 28.8, Monocytes % 8.6, Eosinophils % 5.5 H, Basophils % 0.9, Absolute Granulocytes 3.8, Absolute Lymphocytes 2.0, Absolute Monocytes 0.6 , Absolute Eosinophils 0.4, Absolute Basophils 0.1 Assessment/Plan Assessment: Mr. Miramontes is a 61-year-old man with past medical history significant for ??TIA, CAD, CHF, hypertension, hyperlipidemia, objective sleep apnea on CPAP, pneumonia , osteomyelitis s/p BL 2nd toe amputation and diabetes BIBA after he was found unresponsive at home Active problems: 1. Syncope 2. EKG changes 3. Bradycardia 4. Hypoglycemia 5. HTN Urgency Plan: * Endo recommendations appreciated * Cardio recommendations appreciated * ECHO: Stage 2 diastolic dysfunction, EF 70%, moderate LVH, moderate LA enlargement * Continue aspirin, statin, lasix, Hydralazine 75mg BID, Nifedipine 60 mg * Keep BLE elevated * Decrease Levemir to 14U BID, FSG 93 Problem List: 1. Hypoglycemia 2. Syncope 3. Bradycardia 4. HTN (hypertension) Pain Ratin Pain Location: NA Pain Goal: Remain pain free Pain Plan: NA Tomorrow's Labs & Rationales: BEP for renal function Radhames MATOS,Marilee 07/03/17 1330: Attending MD Review Statement Attending Statement Attending MD Statement: examined this patient, discuss w/resident/PA/LOSS PREVENTION OPERATIONS MANAGER, agreed w/resident/PA/LOSS PREVENTION OPERATIONS MANAGER, reviewed EMR data (avail), discussed with nursing, reviewed images, amended to note Attending Assessment/Plan: 61-year-old morbidly obese male with past medical history significant for uncontrolled diabetes mellitus and on insulin, peripheral arterial disease status post amputations and osteomyelitis, congestive heart failure, hypertension has been admitted to the floor for syncope and hypertensive urgency. Cardiology on on board and currently patient blood pressure is being controlled with hydralazine 75 mg twice a day, losartan 100 mg, clonidine patch, and Lasix 40 mg daily. Patient was seen and examined on the bedside and reported that he is doing much better. Detailed discussions revealed that his blood sugars were not very well controlled and had low blood sugars and an episode of hypoglycemia was likely the cause for his syncope. Endocrinology has been closely following up on his insulin dose and is being adjusted. Blood pressure seems to be fairly controlled with an average of 162/60. CT of the head was negative for any intracerebral bleed. Labs noted and gradually worsening of the creatinine which does require dose adjustment for hypertensive medications, will follow cardiology recommendations Will get a wound consult for his lower extremity chronic weeping grade 1 ulcers. Continue the rest of his medications and DVT prophylaxis.
--- NOTE | 2017-07-03 11:13 | PN- Diabetes ---
Assessment/Plan Diabetes Assessment: This 61-year-old male came in with low blood sugar on a high dose of Tresiiba at home. He has now been changed to Levemir 18 units twice a day as well as NovoLog coverage. NovoLog coverage before meals begins with 6 units for 80-150 with a separate bedtime coverage for sugars above 250. The patient's fingerstick blood sugar this morning is 106. Yesterday his sugars were 120 before breakfast, 305 before lunch, 132 before dinner, and 141 at bedtime. Plan: Suggest reduce the patient's Levemir to 14 units twice a day and continue present sliding scale NovoLog. We should observe the patient's blood sugars further in the hospital. The patient has a lot of redness and weeping of his lower extremities. He needs to keep his legs elevated. In addition consider a wound care consult with wrapping of his lower legs after checking his pulses to make sure he has good circulation. Subjective Subjective: Feels improved Review of Systems Constitutional: Denies: chills, fever. Cardiovascular: Denies: chest pain. Gastrointestinal: Denies: abdominal pain. Skin: Reports: rash (lower legs with weping). Objective Last 24 Hrs of Vital Signs/I&O Vital Signs Date Time Temp Pulse Resp B/P B/P Pulse O2 O2 Flow FiO2 Mean Ox Delivery Rate 07/03 0847 70 162/60 07/03 0846 70 162/60 07/03 0845 70 162/60 07/03 0619 98.7 70 22 162/60 95 Room Air 07/02 2322 66 176/82 07/02 2255 99.2 32 22 160/84 94 Room Air 07/02 1734 63 192/84 07/02 1550 61 192/84 07/02 1419 98.6 63 20 190/88 95 Room Air 07/02 1217 69 182/70 07/02 1217 69 182/70 07/02 1212 98.4 69 15 182/70 95 Room Air Room Air Vital Signs Date Time Temp Pulse Resp B/P B/P Pulse O2 O2 Flow FiO2 Mean Ox Delivery Rate 07/03 0847 70 162/60 07/03 0846 70 162/60 07/03 0845 70 162/60 07/03 0619 98.7 70 22 162/60 95 Room Air 07/02 2322 66 176/82 07/02 2255 99.2 32 22 160/84 94 Room Air 07/02 1734 63 192/84 07/02 1550 61 192/84 07/02 1419 98.6 63 20 190/88 95 Room Air 07/02 1217 69 182/70 07/02 1217 69 182/70 07/02 1212 98.4 69 15 182/70 95 Room Air Room Air Physical Exam General Appearance: alert, awake Neck: normal inspection Respiratory: normal breath sounds Cardiovascular: regular rate/rhythm Abdomen: normal bowel sounds Extremities: swelling (redness and weeping lower legs) Current Medications: Current Medications Sig/Jacque Start time Last Medication Dose Route Stop Time Status Admin Acetaminophen 650 MG Q6P PRN 07/01 1545 AC PO Acetaminophen 1,000 MG Q6P PRN 07/01 1545 AC IV Aspirin 81 MG DAILY 07/01 1715 AC 07/03 PO 0843 Atorvastatin Calcium 40 MG 1700 07/02 1700 AC 07/02 PO 1734 Cholecalciferol 1,000 IU DAILY 07/01 1715 AC 07/03 PO 0843 Clonidine 1 PAT Q168 07/02 0100 AC 07/02 TOP 0114 Furosemide 40 MG DAILY 07/01 1715 AC 07/03 PO 0843 Heparin Sodium 5,000 UNIT Q8 07/01 2200 AC 07/03 (Porcine) SC 0755 Hydralazine HCl 75 MG BID 07/02 2200 AC 07/03 PO 0845 Hydralazine HCl 25 MG 4 TIMES/DAY 07/02 1800 DC 07/02 PO 1734 Influenza Virus 0.5 ML ONCE ONE 07/02 1815 DC 07/03 Vaccine IM 07/02 1816 0852 Insulin Aspart 0 TIDAC/HS 07/02 1200 AC 07/03 SC 0847 Insulin Detemir 18 UNITS BID 07/02 2200 AC 07/03 SC 0848 Losartan Potassium 100 MG DAILY 07/02 1000 AC 07/03 PO 0847 Nifedipine 60 MG DAILY 07/03 1000 AC 07/03 PO 0846 Nifedipine 30 MG DAILY 07/02 0100 DC 07/02 PO 1217 Potassium Chloride 40 MEQ ONCE ONE 07/02 1700 DC PO 07/02 1701 Potassium Chloride 40 MEQ ONCE ONE 07/02 1415 DC 07/02 PO 07/02 1416 1734 Potassium Chloride 20 MEQ DAILY 07/01 1715 AC 07/03 PO 0843 Findings Pertinent Lab/Jordin Results: Laboratory Tests 07/03 623 Chemistry Sodium (137 - 145 mmol/L) 143 Potassium (3.5 - 5.1 mmol/L) 3.5 Chloride (98 - 107 mmol/L) 103 Carbon Dioxide (22 - 30 mmol/L) 30 Anion Gap (5 - 16) 10 BUN (9 - 20 mg/dL) 27 H Creatinine (0.7 - 1.2 mg/dL) 1.8 H Estimated GFR (>60 ml/min) 38 L BUN/Creatinine Ratio (7 - 25 %) 15.0 Hematology CBC w Diff NO MAN DIFF REQ WBC (4.8 - 10.8 /CUMM) 6.8 RBC (4.70 - 6.10 /CUMM) 4.23 L Hgb (14.0 - 18.0 G/DL) 12.9 L Hct (42 - 52 %) 39.0 L MCV (80.0 - 94.0 FL) 92.2 MCH (27.0 - 31.0 PG) 30.6 MCHC (33.0 - 37.0 G/DL) 33.1 RDW (11.5 - 14.5 %) 15.5 H Plt Count (130 - 400 /CUMM) 182 MPV (7.4 - 10.4 FL) 8.9 Gran % (42.2 - 75.2 %) 56.2 Lymphocytes % (20.5 - 51.1 %) 28.8 Monocytes % (1.7 - 9.3 %) 8.6 Eosinophils % (0 - 5 %) 5.5 H Basophils % (0.0 - 2.0 %) 0.9 Absolute Granulocytes (1.4 - 6.5 /CUMM) 3.8 Absolute Lymphocytes (1.2 - 3.4 /CUMM) 2.0 Absolute Monocytes (0.10 - 0.60 /CUMM) 0.6 Absolute Eosinophils (0.0 - 0.7 /CUMM) 0.4 Absolute Basophils (0.0 - 0.2 /CUMM) 0.1 Laboratory Tests 07/03 623 Chemistry Sodium (137 - 145 mmol/L) 143 Potassium (3.5 - 5.1 mmol/L) 3.5 Chloride (98 - 107 mmol/L) 103 Carbon Dioxide (22 - 30 mmol/L) 30 Anion Gap (5 - 16) 10 BUN (9 - 20 mg/dL) 27 H Creatinine (0.7 - 1.2 mg/dL) 1.8 H Estimated GFR (>60 ml/min) 38 L BUN/Creatinine Ratio (7 - 25 %) 15.0 Hematology CBC w Diff NO MAN DIFF REQ WBC (4.8 - 10.8 /CUMM) 6.8 RBC (4.70 - 6.10 /CUMM) 4.23 L Hgb (14.0 - 18.0 G/DL) 12.9 L Hct (42 - 52 %) 39.0 L MCV (80.0 - 94.0 FL) 92.2 MCH (27.0 - 31.0 PG) 30.6 MCHC (33.0 - 37.0 G/DL) 33.1 RDW (11.5 - 14.5 %) 15.5 H Plt Count (130 - 400 /CUMM) 182 MPV (7.4 - 10.4 FL) 8.9 Gran % (42.2 - 75.2 %) 56.2 Lymphocytes % (20.5 - 51.1 %) 28.8 Monocytes % (1.7 - 9.3 %) 8.6 Eosinophils % (0 - 5 %) 5.5 H Basophils % (0.0 - 2.0 %) 0.9 Absolute Granulocytes (1.4 - 6.5 /CUMM) 3.8 Absolute Lymphocytes (1.2 - 3.4 /CUMM) 2.0 Absolute Monocytes (0.10 - 0.60 /CUMM) 0.6 Absolute Eosinophils (0.0 - 0.7 /CUMM) 0.4 Absolute Basophils (0.0 - 0.2 /CUMM) 0.1
[2017-07-03 15:06] VITALS: BP 138/86
[2017-07-03 22:38] VITALS: BP 180/96
[2017-07-04 01:29] VITALS: BP 168/90
[2017-07-04 06:17] VITALS: BP 165/82
--- NOTE | 2017-07-04 08:52 | PN- Housestaff ---
Kanchan MATOS,[facility] 07/04/17 0851: Subjective Follow-up For: Syncope Hypertensive urgency Bradycardia Hypoglycemia EKG changes Tele-Events Since Last Visit: Sinus rhythm with sinus bradycardia Heart rate 56-71. Subjective: Patient reports hypoglycemic events, last episode was yesterday evening, its Galo Almaguer MD spoke to him this morning and he will adjust the sliding scale. Denies any chest pain, palpitations, shortness of breath, lightheadedness/ dizziness or syncopal episodes. Review of Systems Constitutional: Reports: no symptoms. EENTM: Reports: no symptoms. Cardiovascular: Reports: no symptoms. Respiratory: Reports: no symptoms. Gastrointestinal: Reports: no symptoms. Genitourinary: Reports: no symptoms. Musculoskeletal: Reports: no symptoms. Skin: Reports: no symptoms. Neurological/Psychological: Reports: no symptoms. Hematologic/Endocrine: Reports: no symptoms. Immunologic/Allergic: Reports: no symptoms. Objective Last 24 Hrs of Vital Signs/I&O Vital Signs Date Time Temp Pulse Resp B/P B/P Pulse O2 O2 Flow FiO2 Mean Ox Delivery Rate 07/04 1626 98.8 61 20 137/76 97 07/04 0803 62 165/82 07/04 0801 62 165/82 07/04 0801 62 165/82 07/04 0617 97.2 62 20 165/82 94 Room Air 07/04 0129 62 168/90 07/03 2238 98.7 71 20 180/96 95 07/03 2205 72 188/92 Intake & Output 07/04 1600 07/04 0800 07/04 0000 Intake Total 600 400 Output Total 750 Balance -150 400 Intake, Oral 600 400 Output, Urine 750 Physical Exam General Appearance: Alert, Oriented X3, Cooperative, No Acute Distress Skin: No Rashes, No Breakdown Cardiovascular: Regular Rate, Normal S1, Normal S2 Lungs: Clear to Auscultation, Normal Air Movement Abdomen: Normal Bowel Sounds, Soft, No Tenderness Extremities: No Clubbing, No Cyanosis, chronic venous stasis changes with small open wounds, +1 pitting edema Current Medications: Current Medications Sig/Jacque Start time Last Medication Dose Route Stop Time Status Admin Acetaminophen 650 MG Q6P PRN 07/01 1545 AC PO Acetaminophen 1,000 MG Q6P PRN 07/01 1545 AC IV Aspirin 81 MG DAILY 07/01 1715 AC 07/04 PO 0802 Atorvastatin Calcium 40 MG 1700 02/16 1700 AC 07/04 PO 1723 Cholecalciferol 1,000 IU DAILY 07/01 1715 AC 07/04 PO 0802 Clonidine 1 PAT Q168 07/02 0100 AC 07/02 TOP 0114 Furosemide 40 MG DAILY 07/01 1715 AC 07/04 PO 0801 Heparin Sodium 5,000 UNIT Q8 07/01 2200 AC 07/04 (Porcine) SC 1231 Hydralazine HCl 75 MG BID 07/02 2200 AC 07/04 PO 0801 Insulin Aspart 0 TIDAC/HS 07/02 1200 AC 07/04 SC 1723 Insulin Detemir 10 UNITS BID 07/04 2200 AC SC Insulin Detemir 14 UNITS BID 07/03 2200 DC 07/04 SC 0759 Losartan Potassium 100 MG DAILY 07/02 1000 AC 07/04 PO 0803 Nifedipine 60 MG DAILY 07/03 1000 AC 07/04 PO 0801 Potassium Chloride 20 MEQ DAILY 07/01 1715 AC 07/04 PO 0803 Last 24 Hrs of Lab/Jordin Results Last 24 Hrs of Labs/Mics: Laboratory Tests 07/04/17 0620: Anion Gap 8, Estimated GFR 38 L, BUN/Creatinine Ratio 13.9 Assessment/Plan Assessment: Assessment: Mr. Miramontes is a 61-year-old gentleman with past medical history significant for ? ?TIA,CAD, CHF, hypertension, hyperlipidemia, objective sleep apnea on CPAP, pneumonia, osteomyelitis status post bilateral second toe amputation and diabetes was brought in by EMS after he was found unresponsive at home. A/P 1. Syncope; Could be from hypoglycemia or bradycardia - No further episodes of bradycardia noted. - Endocrinology Consult; appreciate recommendations 2. EKG changes; - Cardiology consult; appreciate recommendations - Echocardiogram shows moderate left ventricular hypertrophy with ejection fraction estimated at 70%. Diastolic filling pattern is consistent with impaired LV relaxation. - Continue aspirin and statin. 3. Hypertensive urgency; Patient was found to have a blood pressure of 280/90 in the ER but the patient does admit to not taking his blood pressure medications this morning. - Blood pressure stable with systolic blood pressure in 160s. - Continue nifedipine 60 mg daily, hydralazine 75 mg twice a day and Clonidine patch. - Creatinine gradually worsening from 1.5(on admission) to 1.8. Might need adjustment of blood pressure medications. 4. Nausea/vomiting; resolved - Avoid Zofran(prolonged QTC) - Phenergan for nausea/vomiting as needed. - CT abdomen and pelvis negative for any acute pathology. 5. Hypokalemia; resolved 6. Diabetes - We'll hold Tresiba - Levemir decreased from 14 units to 10 units twice a day. Insulin sliding scale adjusted. - Accu-Cheks TIDAC/HS. - Endocrinology recommendations appreciated. 7. Lower extremity edema; - Continue Lasix 40 mg daily. - Keep the legs elevated. 8. Coronary artery disease; - Continue aspirin and statin. DVT prophylaxis; subcutaneous heparin Patient is full code Problem List: 1. HTN (hypertension) 2. Diabetes 3. Syncope Pain Ratin Pain Location: None Pain Goal: Remain pain free Pain Plan: None Tomorrow's Labs & Rationales: BEP(hypokalemia) Radhames MATOS,Marilee 07/04/17 1117: Attending MD Review Statement Attending Statement Attending MD Statement: examined this patient, discuss w/resident/PA/HEBREW PROFESSOR, agreed w/resident/PA/HEBREW PROFESSOR, reviewed EMR data (avail), discussed with nursing, reviewed images, amended to note Attending Assessment/Plan: 61-year-old morbidly obese male with past medical history significant for uncontrolled diabetes mellitus and on insulin, peripheral arterial disease status post amputations and osteomyelitis, congestive heart failure, hypertension has been admitted to the floor for syncope and hypertensive urgency. Cardiology on on board and currently patient blood pressure is being controlled with hydralazine 75 mg twice a day, losartan 100 mg, clonidine patch, and Lasix 40 mg daily. Patient was seen and examined on the bedside and reported that he is doing much better. Detailed discussions revealed that his blood sugars were not very well controlled and had low blood sugars and an episode of hypoglycemia was likely the cause for his syncope gvien overdose treatment with Treciba. Endocrinology has been closely following and his treciba has been switched over to levemir bid and novolog sliding scale.Blood pressure seems to be fairly controlled with an average of 165/82. CT of the head was negative for any intracerebral bleed. Labs noted and gradually worsening of the creatinine which does require dose adjustment for hypertensive medications, will follow further cardiology recommendations. Dressing has been applied to his LE weeping wounds. adv to keep his legs elevated. Continue the rest of his medications and DVT prophylaxis.
--- NOTE | 2017-07-04 11:58 | PN- Diabetes ---
Assessment/Plan Diabetes Assessment: The patient states he is eating okay. He feels improved. His blood sugars yesterday were 106 before breakfast, 93 before lunch, 65 before dinner, and 143 at bedtime. This morning his fasting blood sugar before breakfast is 85. Patient's blood sugars are still running low. He states he is eating okay. Swelling of his legs is somewhat less today. Plan: Suggest reduce Levemir to 10 units twice a day. We also need to adjust the sliding scale NovoLog before meals. Sliding scale NovoLog before meals should be 80-150 give 4 units NovoLog, 151-200 give 5 units NovoLog, 201-250 give 6 units NovoLog, 251-300 give 8 units NovoLog, 301-350 give 9 units NovoLog, 351- 400 give 10 units NovoLog. The patient needs a dietary consult. We should check the patient's pulses in his legs and if they are good he should be prescribed elastic stockings when he first gets up in the morning. He apparently stands on his feet all day when he works at [employer] when his legs are quite swollen by the end of the day. Nifedipine that he is on can contribute to leg edema. Subjective Subjective: Feels okay Vital Signs Date Time Temp Pulse Resp B/P B/P Pulse O2 O2 Flow FiO2 Mean Ox Delivery Rate 07/04 0703 62 165/07/04 0801 62 16507/04 0801 62 16507/04 0617 97.2 62 20 165/82 94 Room Air 07/04 0129 62 168/90 07/03 2238 98.7 71 20 180/96 95 07/03 2205 72 188/92 07/03 1506 98.8 64 22 138/86 97 Intake & Output 07/04 1600 07/04 0800 07/04 0000 Intake Total 400 Output Total Balance 400 Intake, Oral 400 Review of Systems Constitutional: Denies: chills, fever. Cardiovascular: Denies: chest pain. Respiratory: Denies: cough, short of breath. Gastrointestinal: Denies: abdominal pain. Skin: Reports: lesions (lower legs). Objective Last 24 Hrs of Vital Signs/I&O Vital Signs Date Time Temp Pulse Resp B/P B/P Pulse O2 O2 Flow FiO2 Mean Ox Delivery Rate 07/04 0803 62 165/82 07/04 0801 62 165/82 07/04 0801 62 165/82 07/04 0617 97.2 62 20 165/82 94 Room Air 07/04 0129 62 168/90 07/03 2238 98.7 71 20 180/96 95 07/03 2205 72 188/92 07/03 1506 98.8 64 22 138/86 97 Intake & Output 07/04 1600 07/04 0800 07/04 0000 Intake Total 400 Output Total Balance 400 Intake, Oral 400 Vital Signs Date Time Temp Pulse Resp B/P B/P Pulse O2 O2 Flow FiO2 Mean Ox Delivery Rate 07/04 0803 62 165/82 07/04 0801 62 165/82 07/04 0801 62 165/82 07/04 0617 97.2 62 20 165/82 94 Room Air 07/04 0129 62 168/90 07/03 2238 98.7 71 20 180/96 95 07/03 2205 72 188/92 07/03 1506 98.8 64 22 138/86 97 Intake & Output 07/04 1600 07/04 0800 07/04 0000 Intake Total 400 Output Total Balance 400 Intake, Oral 400 Physical Exam General Appearance: alert, awake, comfortable Head: normal appearance Neck: normal inspection Respiratory: normal breath sounds Cardiovascular: regular rate/rhythm Abdomen: normal bowel sounds Extremities: pedal edema, redness and open areas loer legs Skin: see above Current Medications: Current Medications Sig/Jacque Start time Last Medication Dose Route Stop Time Status Admin Acetaminophen 650 MG Q6P PRN 07/01 1545 AC PO Acetaminophen 1,000 MG Q6P PRN 07/01 1545 AC IV Aspirin 81 MG DAILY 07/01 1715 AC 07/04 PO 0802 Atorvastatin Calcium 40 MG 1700 07/02 1700 AC 07/03 PO 1557 Cholecalciferol 1,000 IU DAILY 07/01 1715 AC 07/04 PO 0802 Clonidine 1 PAT Q168 07/02 0100 AC 07/02 TOP 0114 Furosemide 40 MG DAILY 07/01 1715 AC 07/04 PO 0801 Heparin Sodium 5,000 UNIT Q8 07/01 2200 AC 07/04 (Porcine) SC 0645 Hydralazine HCl 75 MG BID 07/02 2200 AC 07/04 PO 0801 Insulin Aspart 0 TIDAC/HS 07/02 1200 AC 07/04 SC 0758 Insulin Detemir 14 UNITS BID 07/03 2200 AC 07/04 SC 0759 Losartan Potassium 100 MG DAILY 07/02 1000 AC 07/04 PO 0803 Nifedipine 60 MG DAILY 07/03 1000 AC 07/04 PO 0801 Potassium Chloride 20 MEQ DAILY 07/01 1715 AC 07/04 PO 0803
[2017-07-04 16:26] VITALS: BP 137/76
[2017-07-04 21:43] VITALS: BP 166/90
[2017-07-05 06:35] VITALS: BP 160/80
--- NOTE | 2017-07-05 07:02 | PN- Housestaff ---
Kanchan MATOS,[facility] 07/05/17 0702: Subjective Follow-up For: Syncope Hypertensive urgency Bradycardia Hypoglycemia EKG changes Tele-Events Since Last Visit: Normal sinus rhythm with first degree AV block Heart rate 58-73. Subjective: Patient resting comfortably, denies any active complaints. Review of Systems Constitutional: Reports: no symptoms. EENTM: Reports: no symptoms. Cardiovascular: Reports: no symptoms. Respiratory: Reports: no symptoms. Gastrointestinal: Reports: no symptoms. Genitourinary: Reports: no symptoms. Musculoskeletal: Reports: no symptoms. Skin: Reports: no symptoms. Neurological/Psychological: Reports: no symptoms. Hematologic/Endocrine: Reports: no symptoms. Immunologic/Allergic: Reports: no symptoms. Objective Last 24 Hrs of Vital Signs/I&O Vital Signs Date Time Temp Pulse Resp B/P B/P Pulse O2 O2 Flow FiO2 Mean Ox Delivery Rate 07/05 1407 98.4 68 20 158/100 96 Room Air 07/05 1100 155/90 07/05 0928 64 160/80 07/05 0928 64 160/80 07/05 0927 64 160/80 07/05 0635 98.4 64 20 160/80 95 Room Air 07/04 2153 1669/70 07/04 2143 98.4 63 17 166/90 94 07/04 1626 98.8 61 20 137/76 97 Intake & Output 07/05 1600 07/05 0800 07/05 0000 Intake Total 510 110 250 Output Total 300 Balance 210 110 250 Intake, IV 10 10 Intake, Oral 500 100 250 Output, Urine 300 Physical Exam General Appearance: Alert, Oriented X3, Cooperative, No Acute Distress Skin: No Rashes, No Breakdown Cardiovascular: Regular Rate, Normal S1, Normal S2 Lungs: Clear to Auscultation Abdomen: Normal Bowel Sounds, Soft, No Tenderness Extremities: No Clubbing, No Cyanosis, chronic venous stasis changes, +1 pitting edema Current Medications: Current Medications Sig/Jacque Start time Last Medication Dose Route Stop Time Status Admin Acetaminophen 650 MG Q6P PRN 07/01 1545 AC PO Acetaminophen 1,000 MG Q6P PRN 07/01 1545 AC IV Aspirin 81 MG DAILY 07/01 1715 AC 07/05 PO 0927 Atorvastatin Calcium 40 MG 1700 07/02 1700 AC 07/04 PO 1723 Cholecalciferol 1,000 IU DAILY 07/01 1715 AC 07/05 PO 0927 Clonidine 1 PAT Q168 07/02 0100 AC 07/02 TOP 0114 Furosemide 40 MG DAILY 07/01 1715 AC 07/05 PO 0927 Heparin Sodium 5,000 UNIT Q8 07/01 2200 AC 07/05 (Porcine) SC 1240 Hydralazine HCl 75 MG BID 07/02 2200 AC 07/05 PO 0927 Insulin Aspart 0 TIDAC/HS 07/02 1200 AC 07/05 SC 1240 Insulin Detemir 16 UNITS DAILY 07/05 1000 AC 07/05 SC 0928 Insulin Detemir 10 UNITS BID 07/04 2200 DC 07/04 SC 2155 Losartan Potassium 100 MG DAILY 07/02 1000 AC 07/05 PO 0928 Nifedipine 90 MG DAILY 07/06 1000 AC PO Nifedipine 30 MG ONCE ONE 07/05 1500 DC PO 07/05 1501 Nifedipine 60 MG DAILY 07/03 1000 DC 07/05 PO 0928 Potassium Chloride 40 MEQ AT BEDTIME 07/05 2200 AC PO 07/05 2201 Potassium Chloride 40 MEQ ONCE ONE 07/05 1430 DC PO 07/05 1431 Potassium Chloride 20 MEQ DAILY 07/01 1715 AC 07/05 PO 0927 Last 24 Hrs of Lab/Jordin Results Last 24 Hrs of Labs/Mics: Laboratory Tests 07/05/17 0630: Anion Gap 9, Estimated GFR 44 L, BUN/Creatinine Ratio 14.4, TSH 1.760, Free T4 1.38, Total T3 1.18 Assessment/Plan Assessment: Assessment: Mr. Miramontes is a 61-year-old gentleman with past medical history significant for ? ?TIA,CAD, CHF, hypertension, hyperlipidemia, objective sleep apnea on CPAP, pneumonia, osteomyelitis status post bilateral second toe amputation and diabetes was brought in by EMS after he was found unresponsive at home. A/P 1. Syncope; Could be from hypoglycemia or bradycardia - No further episodes of bradycardia noted. - Endocrinology Consult; appreciate recommendations 2. EKG changes; - Cardiology consult; appreciate recommendations - Echocardiogram shows moderate left ventricular hypertrophy with ejection fraction estimated at 70%. Diastolic filling pattern is consistent with impaired LV relaxation. - Continue aspirin and statin. 3. Hypertensive urgency; - Blood pressure stable with systolic blood pressure in 160s. - Continue hydralazine 75 mg twice a day, losartan 100 mg daily and Clonidine patch. - Nifedipine increased to 90 mg daily per cardiology recommendations. - Slight improvement in creatinine today from 1.8-1.6. Continue to monitor. - Will do renal Doppler and check TSH, free T4 level to evaluate the patient for second causes of hypertension. 4. Nausea/vomiting; resolved - Avoid Zofran(prolonged QTC) - Phenergan for nausea/vomiting as needed. - CT abdomen and pelvis negative for any acute pathology. 5. Hypokalemia; resolved 6. Diabetes - We'll hold Tresiba -Continue Levemir 10 units twice a day. Insulin sliding scale adjusted. - Accu-Cheks TIDAC/HS. - Endocrinology recommendations appreciated. 7. Lower extremity edema; - Continue Lasix 40 mg daily. - Keep the legs elevated. 8. Coronary artery disease; - Continue aspirin and statin. DVT prophylaxis; subcutaneous heparin Patient is full code Problem List: 1. Hypertensive urgency 2. Hypoglycemia 3. Syncope 4. Bradycardia Pain Ratin Pain Location: None Pain Goal: Remain pain free Pain Plan: None Tomorrow's Labs & Rationales: BEP(elevated creatinine) Norberto MATOS,Kathryn 07/05/17 1421: Attending MD Review Statement Attending Statement Attending MD Statement: examined this patient, discuss w/resident/PA/WEB DEVELOPMENT CONSULTANT, agreed w/resident/PA/WEB DEVELOPMENT CONSULTANT, reviewed EMR data (avail), discussed with nursing, discussed with case mgmt, reviewed images Attending Assessment/Plan: Over the weekend patient's blood pressure was difficult to control and his medications have been increased. He is now on Lasix, hydralazine, max dose of ARB, Catapres at procardia all to control his pressure. He is at 160/90. He has underlying diabetes and chronic diastolic dysfunction and I'm unclear as to why this sudden resistant hypertension. I don't think he needs workup for adrenal causes given that his hypokalemia is because of the Lasix. We'll get a TSH and free T4. I am worried about renovascular disease and will get a renal Doppler as a simple screening test as that changes management dramatically given the max dose of the arb. I am also worry that he went into mild [place] with a creatinine of 1.8 and it's down to 1.6 today. Will need to watch his pressure and his creatinine and follow-up.
--- NOTE | 2017-07-05 08:24 | PN- Diabetes ---
Assessment/Plan Diabetes Assessment: Mr. Miramontes is a 61-year-old gentleman with past medical history significant for possible TIA, CHF, hypertension, hyperlipidemia, objective sleep apnea on CPAP, pneumonia, osteomyelitis status post bilateral second toe amputation and diabetes type 2 was brought in by EMS after he was found unresponsive. He was on Tresiba 84 units daily at home. He was admitted to for severe hypoglycemia due to too much basal insulin. He was put on Lervemir 18 units twice a day initially, Novolog coverage before meals and Novolog coverage at bedtime. His insulin regimen was adjusted over the weekend, He is on Levemir 10 units twice a day, Novolog coverage before meals ( FSG 80-150, 4 units; FSG 151-200, 5 units; FSG 201-250, 6 units; FSG 251-300, 8 units, etc). His FSGs were 85, 94, 110 and 94. Plan: 1, decrease Levemir to 16 units daily; 2. continue the current Novolog coverage before meals and Novolog coverage at bedtime; 3. monitor FSGs. 4. If he is stable for discharge, the discharge plan for DM: --- Tresiba 16 units daily; ---current Novolog coverage before meals; ---no Novolog coverage at bedtime; ---monitor FSGs x 4 times a day; ---f/u in office after discharge. Subjective Subjective: He feels better. Objective Last 24 Hrs of Vital Signs/I&O Vital Signs Date Time Temp Pulse Resp B/P B/P Pulse O2 O2 Flow FiO2 Mean Ox Delivery Rate 07/05 0635 98.4 64 20 160/80 95 Room Air 07/04 2153 1669/70 07/04 2143 98.4 63 17 166/90 94 07/04 1626 98.8 61 20 137/76 97 Intake & Output 07/05 1600 07/05 0800 07/05 0000 Intake Total 110 250 Output Total Balance 110 250 Intake, IV 10 Intake, Oral 100 250 Findings Pertinent Lab/Jordin Results: Laboratory Tests 07/05 0630 Chemistry Sodium (137 - 145 mmol/L) 142 Potassium (3.5 - 5.1 mmol/L) 3.4 L Chloride (98 - 107 mmol/L) 104 Carbon Dioxide (22 - 30 mmol/L) 30 Anion Gap (5 - 16) 9 BUN (9 - 20 mg/dL) 23 H Creatinine (0.7 - 1.2 mg/dL) 1.6 H Estimated GFR (>60 ml/min) 44 L BUN/Creatinine Ratio (7 - 25 %) 14.4
[2017-07-05] MEDS ORDERED: HYDRALAZINE HCL50 M1 PO ×2 (09:38→15:24)
[2017-07-05 11:00] VITALS: BP 155/90
[2017-07-05 14:07] VITALS: BP 158/100
[2017-07-05] MEDS ORDERED: CATAPRES-TTS 11 EACH TOP (14:53)
[2017-07-05] MEDS ORDERED: PROCARDIA XL90 M1 PO (14:53)
[2017-07-05] MEDS ORDERED: NOVOLOG100 UNIT/2 SC (15:02)
[2017-07-05] MEDS ORDERED: TRESIBA FL100 UNIT/1 SC (15:02)
[2017-07-05] MEDS ORDERED: COZAAR100 M1 PO (15:02)
[2017-07-05 22:08] VITALS: BP 188/90
[2017-07-05 22:39] VITALS: BP 196/90
[2017-07-05 23:53] VITALS: BP 190/80
[2017-07-06 01:37] VITALS: BP 160/56
[2017-07-06 06:57] VITALS: BP 160/70
--- NOTE | 2017-07-06 07:25 | PN- Housestaff ---
Kanchan MATOS,Malissa 07/06/17 0725: Subjective Follow-up For: Syncope Hypertensive urgency Bradycardia Uncontrolled diabetes Tele-Events Since Last Visit: Normal sinus rhythm, junctional rhythm Heart rate 61-75 Subjective: Patient resting comfortably, denies any chest palpitations, lightheadedness/ dizziness or headaches. States his blood pressure has never been this high, systolic blood pressure used to be around 130s on his visits to his PCP. Review of Systems Constitutional: Reports: no symptoms. EENTM: Reports: no symptoms. Cardiovascular: Reports: no symptoms. Respiratory: Reports: no symptoms. Gastrointestinal: Reports: no symptoms. Genitourinary: Reports: no symptoms. Musculoskeletal: Reports: no symptoms. Skin: Reports: no symptoms. Neurological/Psychological: Reports: no symptoms. Hematologic/Endocrine: Reports: no symptoms. Immunologic/Allergic: Reports: no symptoms. Objective Last 24 Hrs of Vital Signs/I&O Vital Signs Date Time Temp Pulse Resp B/P B/P Pulse O2 O2 Flow FiO2 Mean Ox Delivery Rate 07/06 1118 168/80 07/06 0930 174/86 07/06 0929 65 174/86 07/06 0929 65 174/86 07/06 0657 98.4 63 20 160/70 96 Room Air 07/06 0137 69 160/56 07/06 0035 74 190/80 07/05 2353 66 190/80 07/05 2239 196/90 07/05 2208 98.1 74 18 188/90 97 Room Air 07/05 2133 71 188/90 07/05 1753 66 155/82 07/05 1407 98.4 68 20 158/100 96 Room Air Intake & Output 07/06 1600 07/06 0800 07/06 0000 Intake Total Output Total 1999 Balance -1999 Output, Urine 1999 Physical Exam General Appearance: Alert, Oriented X3, Cooperative, No Acute Distress Skin: No Rashes, No Breakdown Cardiovascular: Regular Rate, Normal S1, Normal S2 Lungs: Clear to Auscultation, Normal Air Movement Abdomen: Normal Bowel Sounds, Soft, No Tenderness Extremities: No Clubbing, No Cyanosis, +1 pitting edema and chronic venous stasis changes bilaterally Current Medications: Current Medications Sig/Jacque Start time Last Medication Dose Route Stop Time Status Admin Acetaminophen 650 MG Q6P PRN 07/01 1545 AC PO Acetaminophen 1,000 MG Q6P PRN 07/01 1545 AC IV Aspirin 81 MG DAILY 07/01 1715 AC 07/06 PO 0929 Atorvastatin Calcium 40 MG 1700 07/02 1700 AC 07/05 PO 1753 Cholecalciferol 1,000 IU DAILY 07/01 1715 AC 07/06 PO 0930 Clonidine 1 PAT Q168 07/02 0100 AC 07/02 TOP 0114 Furosemide 40 MG DAILY 07/01 1715 AC 07/06 PO 0930 Heparin Sodium 5,000 UNIT Q8 07/01 2200 AC 07/06 (Porcine) SC 0507 Hydralazine HCl 20 MG .STK-MED ONE 07/06 0002 DC IM 07/06 0003 Hydralazine HCl 5 MG ONCE ONE 07/05 2345 DC 07/06 IV 07/05 2346 0035 Hydralazine HCl 75 MG BID 07/02 2200 AC 07/06 PO 0929 Insulin Aspart 0 TIDAC/HS 07/02 1200 AC 07/06 SC 0859 Insulin Detemir 16 UNITS DAILY 07/05 1000 AC 07/06 SC 0859 Losartan Potassium 100 MG DAILY 07/02 1000 AC 07/06 PO 0929 Nifedipine 90 MG DAILY 07/06 1000 AC 07/06 PO 0930 Nifedipine 30 MG ONCE ONE 07/05 1500 DC 07/05 PO 07/05 1501 1753 Nifedipine 60 MG DAILY 07/03 1000 DC 07/05 PO 0928 Potassium Chloride 40 MEQ AT BEDTIME 07/05 2200 DC 07/05 PO 07/05 2201 2134 Potassium Chloride 40 MEQ ONCE ONE 07/05 1430 DC 07/05 PO 07/05 1431 1752 Potassium Chloride 20 MEQ DAILY 07/01 1715 AC 07/06 PO 0934 Last 24 Hrs of Lab/Jordin Results Last 24 Hrs of Labs/Mics: Laboratory Tests 07/06/17 0620: Anion Gap 10, Estimated GFR 44 L, BUN/Creatinine Ratio 16.9 Assessment/Plan Assessment: Mr. Miramontes is a 61-year-old gentleman with past medical history significant for ? ?TIA,CAD, CHF, hypertension, hyperlipidemia, objective sleep apnea on CPAP, pneumonia, osteomyelitis status post bilateral second toe amputation and diabetes was brought in by EMS after he was found unresponsive at home. A/P 1. EKG changes; - Cardiology consult; appreciate recommendations - Echocardiogram shows moderate left ventricular hypertrophy with ejection fraction estimated at 70%. Diastolic filling pattern is consistent with impaired LV relaxation. - Continue aspirin and statin. 2. Hypertensive urgency; - Blood pressure stable with systolic blood pressure in 160s.(190s last night requiring 1 dose of 5 mg IV hydralazine). -Continue current antihypertensive medications. If blood pressure continues to remain high we can add minoxidil per Dr. Parrish recommendations. -Creatinine remains the same at 1.6. Continue to monitor. - Renal Doppler ultrasound negative for renal artery stenosis and TSH, free T4 are within normal limits. Endocrinology was called to elevate the patient for other secondary causes of hypertension , recommends doing resting catecholamines , metanephrines, Renin and aldosterone. Pheochromocytoma is less likely given negative recent CAT scan of abdomen and pelvis. 4. Nausea/vomiting; resolved - Avoid Zofran(prolonged QTC) - Phenergan for nausea/vomiting as needed. - CT abdomen and pelvis negative for any acute pathology. 5. Hypokalemia; resolved 6. Diabetes -Continue Levemir 10 units twice a day and insulin sliding scale. - Accu-Cheks TIDAC/HS. - Endocrinology recommendations appreciated. 7. Lower extremity edema; - Continue Lasix 40 mg daily. - Keep the legs elevated. 8. Coronary artery disease; - Continue aspirin and statin. DVT prophylaxis; subcutaneous heparin Patient is full code Problem List: 1. Hypertensive urgency 2. Bradycardia 3. Syncope 4. Diabetes Pain Ratin Pain Location: None Pain Goal: Remain pain free Pain Plan: None Tomorrow's Labs & Rationales: None Norberto MATOS,Kathryn 07/06/17 1323: Attending MD Review Statement Attending Statement Attending MD Statement: examined this patient, discuss w/resident/PA/BRICK CHIMNEY BUILDER, agreed w/resident/PA/BRICK CHIMNEY BUILDER, discussed with family, discussed with nursing, discussed with case mgmt, reviewed images Attending Assessment/Plan: Patient feels okay. He denies any headache or palpitations. He is also worried says his blood pressure has never been this high. Obviously I'm concerned given that he is on Lasix, Catapres patch, losartan, Procardia and hydralazine and the pressure is still very high. I spoke to Dr. Key and she doesn't think this is a pheochromocytoma given the negative CT abdomen granted 10% of feels extra- adrenal. The renal artery Doppler, get an in sensitive screening test was negative for renal artery stenosis. At this point I'm not comfortable discharging him given that he required IV hydralazine even last night for blood pressure control. I'll start the workup for secondary causes and that can be followed up as an outpatient. We'll also watch his pressure and make a decision whether we need to add minoxidil to control it, as recommended by Dr. Parrish.
--- NOTE | 2017-07-06 07:40 | Discharge Summary ---
Visit Information Visit Dates Admission Date: 07/01/17 Discharge Date: 07/07/17 Hospital Course Course Attending Physician: Norberto MATOS,Kathryn Hu Primary Care Physician: Cee Gibbons MD Consulting Request: Consulting Specialty: Cardiology Hospital Course: Mr. Miramontes is a 61-year-old gentleman with past medical history significant for ? ?TIA,CAD, CHF, hypertension, hyperlipidemia, objective sleep apnea on CPAP, pneumonia, osteomyelitis status post bilateral second toe amputation and diabetes was brought in by EMS after he was found unresponsive at home. Patient was admitted to the telemetry floor and following issues were addressed; 1. Syncope 2. EKG changes/bradycardia 3. Hypertensive urgency 4. Uncontrolled diabetes 5. Nausea/vomiting 6. Lower extremity edema 7. History of Coronary artery disease Cardiology consult was obtained for EKG changes and 1 episode of bradycardia( heart rate of 40 recorded per EMS). 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 No further episodes of bradycardia were appreciated during his stay in the hospital. Echocardiogram was obtained showing moderate left ventricular hypertrophy with ejection fraction estimated at 70% and Diastolic filling pattern consistent with impaired LV relaxation. Labetolol was held due to bradycardia, Lasix continued and Valsartan increased to 320mg daily Patient was also started on hydralazine, minoxidil, Nifedipine and clonidine patch for uncontrolled blood pressure(systolic in the 190s) while on Lasix and Valsartan. Electrolytes and renal function was closely monitored while on multiple antihypertensive medications. Patient was also evaluated for secondary causes of hypertension given uncontrolled blood pressure while on multiple antihypertensive medications. Renal Doppler ultrasound was negative for renal artery stenosis and TSH, free T4 were within normal limits. Endocrinology was called for further evaluation and recommended checking resting catecholamines, metanephrines, Renin and aldosterone(the results of which were pending at the time of discharge). Pheochromocytoma was less likely given negative recent CAT scan of abdomen and pelvis. When his renal function normalizes an MRA of renal artery should be performed by his PCP to conclusively exclude renal artery stenosis because even though doppler ultrasound of renal arteries was negative this is not the most sensitive test to r/o renal artery stenosis. Patient also reported nausea and vomiting at the time of admission and was given Phenergan as needed, Zofran was avoided due to prolonged QTC. CT abdomen and pelvis was obtained which remained negative for any acute intra-abdominal pathology. Patient was on 84 units of Tresiba at home for diabetes, which was held and blood sugar levels were controlled with Levemir 10 units twice a day and insulin sliding scale during his stay in the hospital. Patient was discharged home on Tresiba 18 units daily and a new sliding scale. Lasix was continued for Lower extremity edema. Aspirin and statin were continued given his history of coronary artery disease. Patient was also evaluated by wound care and Vascular surger for bilateral lower extremity Venous insufficiency. Will follow up with Vascular surgery as an outpatient. Attending note - He is a 61-year-old male with a past medical history of uncontrolled diabetes, obstructive sleep apnea noncompliant on CPAP, refractory hypertension and it's been refractory to multiple medications. Right now he is on max dose of arb, on Lasix, on Catapres patch, on hydralazine, on Procardia and minoxidil as per cardiology. We have endocrine involved and Dr. lora asked us to get a bunch of blood tests to start the workup for secondary causes and said she will follow up with him as an outpatient on the further workup. She doesn't feel that this is a pheochromocytoma given that his CT abdomen is negative, granted 10% of pheos are extradrenal. We also did a screening test for renal artery stenosis and preliminarily the Doppler is negative. He will need an MRA as an outpatient and he understands that. We did the plasma metanephrine level today and that needs to be followed up as an outpatient. We'll also set him up with visiting nurse service and given his CKD with a creatinine that is in the 1.5-1.8 range we have given him a slip to get his BEP with electrolytes and BUN and creatinine to be checked on 07/12 and report results to his PCP and Dr. lora. No beta blockers due to bradycardia. We set him up to get an automated blood pressure cuff to check his pressure at home with visiting nurse service and we spoke to him at length about need for compliance with CPAP and medications. The patient is actively employed at [employer] understands that his health takes priority and he needs to follow up on all of these issues before he can go back to work full-time. Total time spent coordinating discharge was 38 minutes. Allergies: Coded Allergies: NO KNOWN ALLERGIES (11/19/13) Significant Procedures: ECHOCARDIOGRAM CONCLUSIONS 1. Normal EF of 70% with impaired LV relaxation. 2. Moderate left ventricular hypertrophy. 3. Trace to mild tricuspid regurgitation. 4. Moderate left atrial enlargement. XRY-PORTABLE CHEST XRAY IMPRESSION: Question opacity right base may reflect atelectasis or evolving infiltrate. Consider repeat radiograph upright PA and lateral to more definitively assess CT ABD & PELVIS W/O IV CONTRAS IMPRESSION: 1. No evidence of bowel obstruction. No acute findings identified in the abdomen/pelvis. 2. Small hiatal hernia. 3. Partial visualization of small bilateral pleural effusions and small pericardial effusion. CT HEAD WO IV CONTRAST IMPRESSION: 1. No acute intracranial pathology. 2. Findings suggestive of chronic, moderate small vessel ischemic changes of the supratentorial white matter. US-ABD/PELV ORGAN DOPPLER IMPRESSION: 1. There is no renal Doppler evidence suggestive to suggest renal artery stenosis or renovascular hypertension. 2. Normal study. Disposition Summary Disposition Principal Diagnosis: Syncope Resistant hypertension Additional Diagnosis: Hypertensive urgency Uncontrolled diabetes Discharge Disposition: home health services Discharge Instructions General Discharge Information Code Status: Full Code Patient's Diet: Diabetic diet Patient's Activity: As tolerated Follow-Up Instructions/Appts: Please follow-up with your PCP within a week after discharge. This follow-up with your supervisor prepress within a week after discharge and follow up on the blood work that was done in the hospital for your high blood pressure. Please follow-up with your heel seat pounder within a week after discharge. Please follow-up with the Vascular Surgeon within 1-2 weeks after discharge. You will need to repeat your blood work on 07/12/17 to ensure improvement of your renal function which was slightly high during your stay in the hospital. When your renal function normalizes, follow up with your PCP for an MRA of renal artery to conclusively exclude renal artery stenosis because even though doppler ultrasound of renal arteries was negative this is not the most sensitive test to rule out renal artery stenosis. Medications at Discharge Discharge Medications: Stop taking the following medications: Labetalol HCl (Labetalol HCl) 200 MG TABLET ORAL TWICE DAILY Valsartan (Valsartan) 160 MG TABLET ORAL DAILY Qty = 60 Continue taking these medications: Furosemide (Lasix) 40 MG TABLET 1 Tablet ORAL DAILY Comments: Last Taken:07/07/17 Time:10:32A.M Simvastatin (Simvastatin*) 40 MG TABLET 1 Tablet ORAL DAILY Comments: Last Taken:07/06/17 Time:5:56A.M Aspirin (Children's Aspirin) 81 MG TAB.CHEW 1 Tablet ORAL DAILY Comments: Last Taken:07/07/17 Time:10:31A.M Potassium Chloride (Klor-Con M20) 20 MEQ TAB.ER.PRT 1 Tablet ORAL DAILY Days = 30 Comments: Last Taken:07/07/17 Time:10:32A.M Cholecalciferol (Vitamin D3) (Vitamin D3) 2,000 UNIT TABLET 1 Tablet ORAL DAILY Comments: Last Taken:07/07/17 Time:10:31A.M Start taking the following new medications: Clonidine Tts-1 (Catapres-Tts 1) 0.1 MG/24 HOUR PATCH.TDWK 1 Patch On the skin ONCE A WEEK Qty = 5 No Refills Instructions: . Comments: Last Taken:07/02/17 Time:1:14A.M Hydralazine HCl (Hydralazine HCl) 50 MG TABLET 1.5 Tablet ORAL TWICE DAILY Qty = 90 No Refills Instructions: . Comments: Last Taken:07/07/17 Time:10:32A.M Minoxidil (Minoxidil) 10 MG TABLET 0.5 Tablet ORAL DAILY Qty = 15 No Refills Instructions: . Comments: Last Taken:07/07/17 Time:10:32A.M Nifedipine (Procardia XL) 90 MG TAB.ER.24 1 Tablet ORAL DAILY Qty = 30 No Refills Instructions: . Comments: Last Taken:07/07/17 Time:10:32A.M Valsartan (Valsartan) 320 MG TABLET 1 Tablet ORAL DAILY Qty = 30 No Refills Instructions: . Comments: Last Taken:07/07/17 Time:10:32A.M Insulin Aspart (Novolog) 100 UNIT/ML VIAL 0 Inject into fatty tissue 3 TIMES DAILY BEFORE MEALS Qty = 1 No Refills Instructions: 80-150 4 UNITS 151-200 5 UNITS 201-250 6 UNITS 251-300 8 UNITS 301-350 9 UNITS 350-400 10 UNITS > 400 12 UNITS Comments: Last Taken:07/07/17 Time:12:20P.M The following medications have been changed: Old: Insulin Degludec (Tresiba Flextouch U-100) 100 UNIT/ML (3 ML) INSULN.PEN 16 Units Inject into fatty tissue DAILY Qty = 1 New: Insulin Degludec (Tresiba Flextouch U-100) 100 UNIT/ML (3 ML) INSULN.PEN 18 Units Inject into fatty tissue DAILY Qty = 1 Comments: Last Taken:07/07/17 Time:10:36A.M Copies To: Edwige MATOS,Cee; Dg MATOS,Luis; Shahid MATOS,Josesito; Shivani MATOS PHD,Jose Manuel Cait
--- NOTE | 2017-07-06 08:08 | ULTRASOUND REPORT ---
EXAMINATION: RENAL ULTRASOUND WITH RENAL ARTERY DOPPLER CLINICAL INFORMATION: There is a 61-year-old male with resistant hypertension. Possible renal vascular hypertension. Possible renal artery stenosis. COMPARISON: None. TECHNIQUE: Bilateral renal ultrasound with renovascular Doppler was performed. Color-flow imaging with spectral waveform analysis was performed. FINDINGS: The right kidney measures 11.8 x 5.7 x 6.5 cm. There is no evidence of hydronephrosis. There is normal echogenicity to the kidney with normal cortical medullary differentiation. No stone or mass is seen. The left kidney measures 11.5 x 6.1 x 4.8 cm. There is normal echogenicity to the kidney with normal cortical medullary differentiation. There is no stone or mass. Color Doppler flow with spectral waveform analysis was performed. The aorta measures 90 cm/s. The right renal artery measured 69-83 cm/s. The left renal artery measured 45-96 cm/s. The renal aortic ratio was 0.9 on the right and 1.1 on the left. There was no post stenotic turbulence. IMPRESSION: 1. There is no renal Doppler evidence suggestive to suggest renal artery stenosis or renovascular hypertension. 2. Normal study.
[2017-07-06 11:18] VITALS: BP 168/80
--- NOTE | 2017-07-06 11:20 | PN- Diabetes ---
Assessment/Plan Diabetes Assessment: Mr. Miramontes is a 61-year-old gentleman with past medical history significant for possible TIA, CHF, hypertension, hyperlipidemia, objective sleep apnea on CPAP, pneumonia, osteomyelitis status post bilateral second toe amputation and diabetes type 2 was brought in by EMS after he was found unresponsive. He was on Tresiba 84 units daily at home. He was admitted to for severe hypoglycemia due to too much basal insulin. He was put on Lervemir 18 units twice a day initially, Novolog coverage before meals and Novolog coverage at bedtime. His insulin regimen was adjusted over the weekend, He is on Levemir 16 units once a day, Novolog coverage before meals ( FSG 80-150, 4 units; FSG 151-200, 5 units; FSG 201-250, 6 units; FSG 251-300, 8 units, etc). His FSGs were 94, 144, 124, 133 and 205. In hospital, his BP medications were adjusted several times and currently he is on Nifedipine XL 90 mg daily, hydralazine 75 mg twice a day, Losartan 100 mg daily, Lasix 40 mg daily and Clonidine patch 0.1 mg once a week, his BP were 160 -190/80-90. CT scan done on 07/01/2017 showed unremarkable adrenal glands. Plan: 1. DM: continue the current insulin regimen; monitor FSGs 2. uncontrolled BP with unremarkable adrenal glands on CT scan: BP management as per cardiology check PRA, aldosterone, resting plasma catecholamines and metanephrines just to make sure. will follow. Subjective Subjective: He doesn't have special complaints this morning. Objective Last 24 Hrs of Vital Signs/I&O Vital Signs Date Time Temp Pulse Resp B/P B/P Pulse O2 O2 Flow FiO2 Mean Ox Delivery Rate 07/06 1118 168/80 07/06 0930 174/86 07/06 0929 65 174/86 07/06 0929 65 174/86 07/06 0657 98.4 63 20 160/70 96 Room Air 07/06 0137 69 160/56 07/06 0035 74 190/80 07/05 2353 66 190/80 07/05 2239 196/90 07/05 2208 98.1 74 18 188/90 97 Room Air 07/05 2133 71 188/90 07/05 1753 66 155/82 07/05 1407 98.4 68 20 158/100 96 Room Air Intake & Output 07/06 1600 07/06 0800 07/06 0000 Intake Total Output Total 1999 Balance -1999 Output, Urine 1999 Findings Pertinent Lab/Jordin Results: Laboratory Tests 07/06 619 Chemistry Sodium (137 - 145 mmol/L) 140 Potassium (3.5 - 5.1 mmol/L) 4.0 Chloride (98 - 107 mmol/L) 103 Carbon Dioxide (22 - 30 mmol/L) 27 Anion Gap (5 - 16) 10 BUN (9 - 20 mg/dL) 27 H Creatinine (0.7 - 1.2 mg/dL) 1.6 H Estimated GFR (>60 ml/min) 44 L BUN/Creatinine Ratio (7 - 25 %) 16.9
--- NOTE | 2017-07-06 14:27 | Patient Discharge Instructions ---
Discharge Instructions General Discharge Information You were seen/treated for: Syncope Uncontrolled Diabetes Hypertensive Urgency Special Instructions: Please follow-up with your PCP within a week after discharge. Please follow-up with your radiator mechanic within a week after discharge and follow up on the blood work that was done in the hospital for your high blood pressure. Please follow-up with your button tacker within a week after discharge. Please follow-up with the Vascular Surgeon within a week after discharge. You will need to repeat your blood work on 07/12/17. Diet Continue normal diet: Yes Recommended Diet: Diabetic, Heart Healthy Activity Full Activity/No Limits: Yes Acute Coronary Syndrome Inclusion Criteria At DC or during hospital stay patient has or had the following: ACS DIAGNOSIS No Discharge Core Measures Meds if any: Prescribed or Continued at Discharge Meds if any: NOT Prescribed or Continued at Discharge Congestive Heart Failure Inclusion Criteria At DC or during hospital stay patient has or had the following: CHF DIAGNOSIS No Discharge Core Measures Meds if any: Prescribed or Continued at Discharge Meds if any: NOT Prescribed or Continued at Discharge Cerebrovascular accident Inclusion Criteria At DC or during hospital stay patient has or had the following: CVA/TIA Diagnosis No Discharge Core Measures Meds if any: Prescribed or Continued at Discharge Meds if any: NOT Prescribed or Continued at Discharge Venous thromboembolism Inclusion Criteria VTE Diagnosis No VTE Type NONE VTE Confirmed by (Test) NONE Discharge Core Measures - Per Current guidelines, there needs to be overlap - treatment for the first 5 days of Warfarin therapy. - If discharged on Warfarin prior to 5 days of - overlap therapy, the patient will need to be - assessed for post discharge needs including - *Post discharge parental anticoagulation - *Warfarin and/or parental anticoagulation education - *Follow up date to check INR post discharge At least 5 days overlap therapy as Inpatient No Meds if any: Prescribed or Continued at Discharge Note: Overlap Therapy is Warfarin and Anticoagulant Meds if any: NOT Prescribed or Continued at Discharge
--- NOTE | 2017-07-06 14:33 | PN- Cardiology ---
Subjective Subjective: * No complaints. * sinus rhythm * patient remains hypertensive * No findings of renal artery stenosis by ultrasound Objective Vital Signs and I&Os Vital Signs Date Time Temp Pulse Resp B/P B/P Pulse O2 O2 Flow FiO2 Mean Ox Delivery Rate 07/06 1118 168/80 07/06 0930 174/86 07/06 0929 65 174/86 07/06 0929 65 174/86 07/06 0657 98.4 63 20 160/70 96 Room Air 07/06 0137 69 160/56 07/06 0035 74 190/80 07/05 2353 66 190/80 07/05 2239 196/90 07/05 2208 98.1 74 18 188/90 97 Room Air 07/05 2133 71 188/90 07/05 1753 66 155/82 Intake & Output 07/06 1600 07/06 0800 07/06 0000 07/05 1600 07/05 0800 07/05 0000 Intake Total 510 110 250 Output Total 2000 300 Balance -2000 210 110 250 Intake, IV 10 10 Intake, Oral 500 100 250 Output, Urine 2000 300 Physical Exam: General: WD/overweight male in NAD; alert and oriented x 3 HEENT: NC/AT,PERRL, EOMI Neck: no JVD, no carotid bruit Heart: RRR with 2/6 systolic murmur Lungs: clear bilaterally ABdomen: soft, obese, NT, +ve bowel sounds Extremities: 2+ leg edema bilaterally Assessment/Plan Assessment/Plan * This patient had a syncopal episode that was most likely due to hypoglycemia. There are no current findings of bradycardia. I would avoid beta blockers however since bradycardia was noted by EMS while on Labetolol. * This patient has had prior episodes of chest discomfort and has an ECG that is suggestive of an old anterior [place]. His echocardiogram does not show any significant regional wall motion abnormality. Repeat his ECG. There is no evidence to support an acute coronary syndrome at this time. His ST elevations are likely repolarization changes in the setting of an incomplete BBB and are likely related to LVH from hypertensive heart disease. Continue aspirin and a statin. * This patient has severe hypertension which has likely precipitated mild renal insufficiency. He had not taken his medications as previously prescribed and has not followed up in the office. I was previously not inclined to have this patient on a beta jose but this was due to concern regarding bronchospasm more than for fear of bradycardia. Nevertheless, considering his history of bradycardia I would not restart a beta jose. * He has not used his CPAP for a very long time and this has likely contributed to his hypertension. I would restart CPAP. The patient has evidence of a very thickened heart with diastolic dysfunction that is almost certainly related to his long-standing hypertension. Increase Nifedipine ER to 90mg daily. Continue Valsartan or its equivalent at its maximum dosing. Continue hydralzine at 75mg BID. Begin Minoxidil 5mg daily. Continue a clonidine TTS1 patch and Lasix 40mg daily. He should be on a low sodium diet. * This patient will need a workup for secondary causes of hypertension. Send of labs as recommended by renal to rule out hyperaldosteronism and pheochromocytoma. Include a 24 hour urine for catecholamines and metanephrines. obtain a CT angiogram of the renal arteries to assess for renal artery stenosis. Continue telemetry? No
--- NOTE | 2017-07-06 14:35 | PN- Cardiology ---
Subjective Subjective: * Patient has ambulated without complaints. * creatinine 1.6 with potassium 3.4 * persistent hypertension Objective Vital Signs and I&Os Vital Signs Date Time Temp Pulse Resp B/P B/P Pulse O2 O2 Flow FiO2 Mean Ox Delivery Rate 07/05 1407 98.4 68 20 158/100 96 Room Air 07/05 1100 155/90 07/05 0928 64 160/80 07/05 0928 64 160/80 07/05 0927 64 160/80 07/05 0635 98.4 64 20 160/80 95 Room Air 07/04 2153 1669/70 07/04 2143 98.4 63 17 166/90 94 07/04 1626 98.8 61 20 137/76 97 Intake & Output 07/05 1600 07/05 0800 07/05 0000 07/04 1600 07/04 0800 07/04 0000 Intake Total 510 110 250 600 400 Output Total 300 750 Balance 210 110 250 -150 400 Intake, IV 10 10 Intake, Oral 500 100 250 600 400 Output, Urine 300 750 Physical Exam: General: WD/overweight male in NAD; alert and oriented x 3 HEENT: NC/AT,PERRL, EOMI Neck: no JVD, no carotid bruit Heart: RRR with 2/6 systolic murmur Lungs: clear bilaterally ABdomen: soft, obese, NT, +ve bowel sounds Extremities: 2+ leg edema with weeping bilaterally Assessment/Plan Assessment/Plan * This patient had a syncopal episode that was most likely due to hypoglycemia. There are no current findings of bradycardia. I would avoid beta blockers however since bradycardia was noted by EMS while on Labetolol. * This patient has had prior episodes of chest discomfort and has an ECG that is suggestive of an old anterior [place]. His echocardiogram does not show any significant regional wall motion abnormality. Repeat his ECG. There is no evidence to support an acute coronary syndrome at this time. His ST elevations are likely repolarization changes in the setting of an incomplete BBB and are likely related to LVH from hypertensive heart disease. Continue aspirin and a statin. * This patient has severe hypertension which has likely precipitated mild renal insufficiency. He has not taken his medications as previously prescribed and has not followed up in the office. I was previously not inclined to have this patient on a beta jose but this was due to concern regarding bronchospasm more than for fear of bradycardia. Nevertheless, considering his history of bradycardia I would not restart a beta jose. He has not used his CPAP for a very long time and this has likely contributed to his hypertension. I would restart CPAP. The patient has evidence of a very thickened heart with diastolic dysfunction that is almost certainly related to his long-standing hypertension. Increase Nifedipine ER to 90mg daily. Continue Valsartan or its equivalent at its maximum dosing. Increase hydralzine to 75mg BID and increase as necessary. I would not prescribe medications TID in this patient. Continue a clonidine TTS1 patch and Lasix 40mg daily. He should be on a low sodium diet. Obtain a renal ultrasound. Continue telemetry? Yes
[2017-07-06 15:13] VITALS: BP 170/100
--- NOTE | 2017-07-06 15:32 | Cons- Vascular Surgery ---
General Information and HPI Consulting Request Date of Consult: 07/06/17 Requested By: Norberto MATOS,Kathryn Hu Reason for Consult: B/L legs with venous insufficency Source of Information: patient, old records Exam Limitations: no limitations History of Present Illness: Mr. Miramontes is a 61-year-old gentleman with past medical history significant for CHF, hypertension, hyperlipidemia, objective sleep apnea on CPAP, pneumonia, osteomyelitis status post bilateral second toe amputation and diabetes was brought in by EMS after he was found unresponsive at home. Patient has also had significant wound healing issues in the past on both lower legs. [facility] wound care nurse was consult it and a vascular evaluation recommended. He denies any claudication or rest pain. However he does have a history of swelling and works long hours on his feet at [employer]. Allergies/Medications Allergies: Coded Allergies: NO KNOWN ALLERGIES (11/19/13) Home Med List: Aspirin (Children's Aspirin) 81 MG TAB.CHEW 1 TAB PO DAILY HEART HEALTH ( Reported) Cholecalciferol (Vitamin D3) (Vitamin D3) 2,000 UNIT TABLET 1 TAB PO DAILY VITAMIN SUPPORT (Reported) Clonidine Tts-1 (Catapres-Tts 1) 0.1 MG/24 HOUR PATCH.TDWK 1 PAT TOP Q168 HTN Furosemide (Lasix) 40 MG TABLET 1 TAB PO DAILY HEART (Reported) Hydralazine HCl 50 MG TABLET 1.5 TAB PO BID HTN Insulin Aspart (Novolog) 100 UNIT/ML VIAL 0 SC TIDAC DIABETES 80-150 4 UNITS 151-200 5 UNITS 201-250 6 UNITS 251-300 8 UNITS 301-350 9 UNITS 350-400 10 UNITS > 400 12 UNITS Insulin Degludec (Tresiba Flextouch U-100) 100 UNIT/ML (3 ML) INSULN.PEN 16 UNITS SC DAILY DIABETES Labetalol HCl 200 MG TABLET 1 TAB PO BID HEART (Reported) Losartan (Cozaar) 100 MG TABLET 1 TAB PO DAILY HTN Nifedipine (Procardia XL) 90 MG TAB.ER.24 1 TAB PO DAILY HTN Potassium Chloride (Klor-Con M20) 20 MEQ TAB.ER.PRT 1 TAB PO DAILY LOW POTASSIUM Simvastatin (Simvastatin*) 40 MG TABLET 1 TAB PO DAILY CHOLESTEROL (Reported) Valsartan 160 MG TABLET 1 TAB PO DAILY HEART (Reported) Current Medications: Current Medications Sig/Jacque Start time Last Medication Dose Route Stop Time Status Admin Acetaminophen 650 MG Q6P PRN 07/01 1545 AC PO Acetaminophen 1,000 MG Q6P PRN 07/01 1545 AC IV Aspirin 81 MG DAILY 07/01 1715 AC 07/06 PO 0929 Atorvastatin Calcium 40 MG 1700 07/02 1700 AC 07/05 PO 1753 Cholecalciferol 1,000 IU DAILY 07/01 1715 AC 07/06 PO 0930 Clonidine 1 PAT Q168 07/02 0100 AC 07/02 TOP 0114 Furosemide 40 MG DAILY 07/01 1715 AC 07/06 PO 0930 Heparin Sodium 5,000 UNIT Q8 07/01 2200 AC 07/06 (Porcine) SC 1415 Hydralazine HCl 20 MG .STK-MED ONE 07/06 0002 DC IM 07/06 0003 Hydralazine HCl 5 MG ONCE ONE 07/05 2345 DC 07/06 IV 07/05 2346 0035 Hydralazine HCl 75 MG BID 07/02 2200 AC 07/06 PO 0929 Insulin Aspart 0 TIDAC/HS 07/02 1200 AC 07/06 SC 1252 Insulin Detemir 16 UNITS DAILY 07/05 1000 AC 07/06 SC 0859 Losartan Potassium 100 MG DAILY 07/02 1000 AC 07/06 PO 0929 Nifedipine 90 MG DAILY 07/06 1000 AC 07/06 PO 0930 Potassium Chloride 40 MEQ AT BEDTIME 07/05 2200 DC 07/05 PO 07/05 2201 2134 Potassium Chloride 20 MEQ DAILY 07/01 1715 AC 07/06 PO 0934 Past History Medical History Neurological: NONE EENT: NONE Cardiovascular: CHF, hypertension, hyperlipidemia Respiratory: obstructive sleep apnea, pneumonia Gastrointestinal: NONE Hepatic: NONE Renal: NONE Musculoskeletal: osteomyelitis Psychiatric: NONE Endocrine: diabetes Blood Disorders: NONE Cancer(s): NONE COMMERCIAL MANAGEMENT ACCOUNTANT/Reproductive: NONE Surgical History Pertinent Surgical History: left hip surgery left toe amputation for osteomyelitis left toe amputation Family History Relations & Conditions If Any: FATHER (diabetes and of stomach cancer). FH: diabetes mellitus MOTHER (CVA and UT at age 60). Psychosocial History Where Do You Live? Home Who Do You Live With? self Services at Home: None Smoking Status: Never Smoked ETOH Use: occasional use Illicit Drug Use: denies illicit drug use Functional Ability ADLs Independent: dressing, eating, toileting, bathing. Ambulation: independent IADLs Independent: shopping, housework, finances, food prep, telephone, transportation , medication admin. Review of Systems Review of Systems: Bilateral lower extremities with swelling and excoriated skin with intermittent wounds which heal with compression and elevation. Exam & Diagnostic Data Vital Signs and I&O Vital Signs Date Time Temp Pulse Resp B/P B/P Pulse O2 O2 Flow FiO2 Mean Ox Delivery Rate 07/06 1513 98.7 66 20 170/100 96 07/06 1118 168/80 07/06 0930 174/86 07/06 0929 65 174/86 07/06 0929 65 174/86 07/06 0657 98.4 63 20 160/70 96 Room Air 07/06 0137 69 160/56 07/06 0035 74 190/80 07/05 2353 66 190/80 07/05 2239 196/90 07/05 2208 98.1 74 18 188/90 97 Room Air 07/05 2133 71 188/90 07/05 1753 66 155/82 Intake & Output 07/06 1600 07/06 0800 07/06 0000 07/05 1600 07/05 0800 07/05 0000 Intake Total 510 110 250 Output Total 2000 300 Balance -2000 210 110 250 Intake, IV 10 10 Intake, Oral 500 100 250 Output, Urine 2000 300 Physical Exam: Bilateral lower extremity is her well-perfused, there are palpable pedal pulses. Patient has hyperpigmentation and hyperlipidemia consistent with venous stasis. Physical Exam General Appearance: well developed/nourished, alert, awake Peripheral Pulses: 2+ dorsalis pedis (R), 2+ dorsalis pedis (L) Extremities: normal capillary refill, inflammation, pedal edema, swelling, tenderness Assessment/Plan Assessment/Plan 61-year-old male with multiple medical problems now with excoriated skin and venous stasis ulceration related to venous hypertension 1.) Would benefit from elevation and compression- recommended compression stockings upon discharge 2.) Venous workup to rule out significant venous reflux once discharged 3.) Continue care as per primary team 4.) My office will consult him upon discharge for follow-up. Thank you for this consult. Consult Acknowledgment - Thank you for your consult request.
[2017-07-06 16:02] VITALS: BP 182/90
[2017-07-06 22:06] VITALS: BP 168/92
[2017-07-07 06:50] VITALS: BP 150/82
[2017-07-07] MEDS ORDERED: MINOXIDIL10 M1 PO ×2 (07:20→10:34)
--- NOTE | 2017-07-07 07:21 | PN- Housestaff ---
Kanchan MATOS,[facility] 07/07/17 0721: Subjective Follow-up For: Syncope Hypertensive urgency Bradycardia Uncontrolled diabetes Tele-Events Since Last Visit: Junctional beats Heart rate 60-66. Subjective: Patient resting comfortably, denies any active complaints. Review of Systems Constitutional: Reports: no symptoms. EENTM: Reports: no symptoms. Cardiovascular: Reports: no symptoms. Respiratory: Reports: no symptoms. Gastrointestinal: Reports: no symptoms. Genitourinary: Reports: no symptoms. Musculoskeletal: Reports: no symptoms. Skin: Reports: no symptoms. Neurological/Psychological: Reports: no symptoms. Hematologic/Endocrine: Reports: no symptoms. Immunologic/Allergic: Reports: no symptoms. Objective Last 24 Hrs of Vital Signs/I&O Vital Signs Date Time Temp Pulse Resp B/P B/P Pulse O2 O2 Flow FiO2 Mean Ox Delivery Rate 07/07 1452 98.9 84 20 134/70 97 Room Air 07/07 1252 201/90 07/07 1251 76 190/80 07/07 1250 200/90 07/07 1032 168/76 07/07 1032 168/76 07/07 1031 72 168/76 Intake & Output 07/08 0800 07/08 0000 07/07 1600 Intake Total 600 Output Total 400 Balance 200 Intake, Oral 600 Output, Urine 400 Physical Exam General Appearance: Alert, Oriented X3, Cooperative, No Acute Distress Skin: No Rashes, No Breakdown Cardiovascular: Regular Rate, Normal S1, Normal S2 Lungs: Clear to Auscultation, Normal Air Movement Extremities: bilateral +1 pitting edema, chronic venous stasis changes, healing wounds Current Medications: Current Medications Sig/Jacque Start time Last Medication Dose Route Stop Time Status Admin Acetaminophen 650 MG Q6P PRN 07/01 1545 AC PO Acetaminophen 1,000 MG Q6P PRN 07/01 1545 AC IV Aspirin 81 MG DAILY 07/01 1715 AC 07/07 PO 1032 Atorvastatin Calcium 40 MG 1700 07/02 1700 07/06 PO 1756 Cholecalciferol 1,000 IU DAILY 07/01 171 AC 07/07 PO 1032 Clonidine 1 PAT Q168 07/02 0100 AC 07/02 TOP 0114 Furosemide 40 MG DAILY 07/01 1715 AC 07/07 PO 1032 Heparin Sodium 5,000 UNIT Q8 07/01 2200 AC 07/07 (Porcine) SC 0510 Hydralazine HCl 75 MG BID 07/02 2200 AC 07/07 PO 1032 Insulin Aspart 0 TIDAC/HS 07/02 1200 AC 07/07 SC 0810 Insulin Detemir 18 UNITS DAILY 07/07 1000 AC 07/07 SC 1036 Insulin Detemir 16 UNITS DAILY 07/05 1000 DC 07/06 SC 0859 Losartan Potassium 100 MG DAILY 07/02 1000 AC 07/07 PO 1032 Minoxidil 5 MG DAILY 07/06 1636 AC 07/07 PO 1032 Nifedipine 90 MG DAILY 07/06 1000 AC 07/07 PO 1031 Patient Medication 1 ED ONE ONE 07/06 1630 DC Teaching ED 07/06 1631 Potassium Chloride 20 MEQ DAILY 07/01 1715 AC 07/07 PO 1031 Last 24 Hrs of Lab/Jordin Results Last 24 Hrs of Labs/Mics: Laboratory Tests 07/07/17 0500: Anion Gap 10, Estimated GFR 41 L, BUN/Creatinine Ratio 15.9, Glucose 179 H, Calcium 8.9 07/07/17 0500: Renin Pending, Aldosterone Pending, Dopamine Pending, Plasma Epinephrine Pending , Norepinephrine Pending, Total Catecholamines Pending, Plasma Free Metaneph Pending, Plasma Free Normeta Pending, Pls Totl Free Metaneph Pending, Urine Total Volume Cancelled, U Metanephrines 24 Hr Cancelled, U Normetanephrine 24h Cancelled, U Tot Metanephrine 24h Cancelled Assessment/Plan Assessment: Mr. Miramontes is a 61-year-old gentleman with past medical history significant for ? ?TIA,CAD, CHF, hypertension, hyperlipidemia, objective sleep apnea on CPAP, pneumonia, osteomyelitis status post bilateral second toe amputation and diabetes was brought in by EMS after he was found unresponsive at home. A/P 1. EKG changes; - Continue aspirin and statin. 2. Hypertensive urgency; - Continue current antihypertensive medications. Minoxidil was added last night. - Creatinine 1.7 today. Advised to repeat BEP after discharge on Wednesday(). - Awaiting plasma rhythm, aldosterone, catecholamines and metanephrine levels. 4. Nausea/vomiting; resolved - Avoid Zofran(prolonged QTC) - Phenergan for nausea/vomiting as needed. 5. Hypokalemia; resolved 6. Diabetes - Levemir changed to 18 units daily, will continue the NovoLog sliding scale. - Accu-Cheks TIDAC/HS. - Endocrinology recommendations appreciated. 7. Lower extremity edema; - Continue Lasix 40 mg daily. - Keep the legs elevated. 8. Coronary artery disease; - Continue aspirin and statin. DVT prophylaxis; subcutaneous heparin Patient is full code Problem List: 1. Bradycardia 2. Syncope 3. Hypoglycemia 4. Venous stasis 5. Hypertensive urgency Pain Ratin Pain Location: None Pain Goal: Remain pain free Pain Plan: None Tomorrow's Labs & Rationales: None Kathryn Thornton MD 07/07/17 1157: Attending MD Review Statement Attending Statement Attending MD Statement: examined this patient, discuss w/resident/PA/WATER [employer] SE[employer]ER SYSTEMS SUPERVISOR, agreed w/resident/PA/WATER AND SEWER SYSTEMS SUPERVISOR, reviewed EMR data (avail), discussed with nursing, discussed with case mgmt, reviewed images Attending Assessment/Plan: The patient's blood pressure is better now that minoxidil has been added for blood pressure control. He is a 61-year-old male with a past medical history of uncontrolled diabetes, obstructive sleep apnea noncompliant on CPAP, refractory hypertension and it's been refractory to multiple medications. Right now he is on max dose of arb, on Lasix, on Catapres patch, on hydralazine, on Procardia and minoxidil as per cardiology. We have endocrine involved and Dr. lora asked us to get a bunch of blood tests to start the workup for secondary causes and said she will follow up with him as an outpatient on the further workup. She doesn't feel that this is a pheochromocytoma given that his CT abdomen is negative, granted 10% of pheos are extradrenal. We also did a screening test for renal artery stenosis and preliminarily the Doppler is negative. He will need an MRA as an outpatient and he understands that. We did the plasma metanephrine level today and that needs to be followed up as an outpatient. We'll also set him up with visiting nurse service and given his CKD with a creatinine that is in the 1.5-1.8 range we have given him a slip to get his BEP with electrolytes and BUN and creatinine to be checked on 07/12 and report results to his PCP and Dr. lora. No beta blockers due to bradycardia. We set him up to get an automated blood pressure cuff to check his pressure at home with visiting nurse service and we spoke to him at length about need for compliance with CPAP and medications. The patient is actively employed at [employer] understands that his health takes priority and he needs to follow up on all of these issues before he can go back to work full-time. Total time spent coordinating discharge was 38 minutes.
[2017-07-07] MEDS ORDERED: VALSARTAN320 M1 PO ×2 (09:32→10:34)
[2017-07-07] MEDS ORDERED: TRESIBA FL100 UNIT/1 SC (09:32)
[2017-07-07] MEDS ORDERED: CATAPRES-TTS 11 EACH TOP (10:34)
[2017-07-07] MEDS ORDERED: PROCARDIA XL90 M1 PO (10:34)
[2017-07-07] MEDS ORDERED: HYDRALAZINE HCL50 M1 PO (10:34)
--- NOTE | 2017-07-07 11:30 | PN- Diabetes ---
Assessment/Plan Diabetes Assessment: Mr. Miramontes is a 61-year-old gentleman with past medical history significant for possible TIA, CHF, hypertension, hyperlipidemia, objective sleep apnea on CPAP, pneumonia, osteomyelitis status post bilateral second toe amputation and diabetes type 2 was brought in by EMS after he was found unresponsive. He was on Tresiba 84 units daily at home. He was admitted to for severe hypoglycemia due to too much basal insulin. He was put on Lervemir 18 units twice a day initially, Novolog coverage before meals and Novolog coverage at bedtime. His insulin regimen was adjusted over the weekend, He is on Levemir 16 units once a day, Novolog coverage before meals ( FSG 80-150, 4 units; FSG 151-200, 5 units; FSG 201-250, 6 units; FSG 251-300, 8 units, etc). His FSGs were 191, 169 and 193. In hospital, his BP medications were adjusted several times and currently he is on Nifedipine XL 90 mg daily, hydralazine 75 mg twice a day, Losartan 100 mg daily, Lasix 40 mg daily and Clonidine patch 0.1 mg once a week, his BP were 160 -190/80-90. Adrenal hormone evaluation is pending. CT scan done on 07/01/2017 showed unremarkable adrenal glands. Plan: 1. increase Levemir to 18 units daily; 2. continue the current Novolog coverage before meals and Novolog coverage at bedtime; 3. monitor FSGs. 4. if medically he is stable for discharge, the discharge plan for DM: --- Tresiba 18 units daily; ---Novolog coverage before meals-- same as inpatient regimen 5. f/u in office after discharge. will follow. Subjective Subjective: He feels okay; but would like to go home. Objective Last 24 Hrs of Vital Signs/I&O Vital Signs Date Time Temp Pulse Resp B/P B/P Pulse O2 O2 Flow FiO2 Mean Ox Delivery Rate 07/07 1032 168/07/07 1032 16807/07 1031 72 168/07/07 0650 98.2 68 20 150/82 95 Room Air 07/07 0304 66 96 07/07 0000 CPAP 07/06 2217 63 96 07/06 2206 98.3 60 20 168/92 95 Room Air 07/06 2145 168/07/06 1602 182/90 07/06 1513 98.7 66 20 170/100 96 Intake & Output 07/07 1600 07/07 0800 07/07 0000 Intake Total 100 Output Total Balance 100 Intake, Oral 100 Patient 300 lb Weight Findings Pertinent Lab/Jordin Results: Laboratory Tests 07/07 07/07 0500 0500 Chemistry Sodium (137 - 145 mmol/L) 138 Potassium (3.5 - 5.1 mmol/L) 3.6 Chloride (98 - 107 mmol/L) 100 Carbon Dioxide (22 - 30 mmol/L) 28 Anion Gap (5 - 16) 10 BUN (9 - 20 mg/dL) 27 H Creatinine (0.7 - 1.2 mg/dL) 1.7 H Estimated GFR (>60 ml/min) 41 L BUN/Creatinine Ratio (7 - 25 %) 15.9 Glucose (65 - 99 mg/dL) 179 H Calcium (8.4 - 10.2 mg/dL) 8.9 Renin Pending Aldosterone Pending Dopamine Pending Plasma Epinephrine Pending Norepinephrine Pending Total Catecholamines Pending Plasma Free Metaneph Pending Plasma Free Normeta Pending Pls Totl Free Metaneph Pending Urines Urine Total Volume Cancelled U Metanephrines 24 Hr Cancelled U Normetanephrine 24h Cancelled U Tot Metanephrine 24h Cancelled
[2017-07-07 12:50] VITALS: BP 200/90
[2017-07-07 12:51] VITALS: BP 190/80
[2017-07-07 12:52] VITALS: BP 201/90
[2017-07-07 14:52] VITALS: BP 134/70
== END 2017-07-07 16:10 | disposition home health service (06) | DRG 638 ==
LOC: DELPENDDIS → ERH 11:11 → ERHI 15:58 → ENRESERV 07-02 12:34 → ENTRNSPT 07-02 13:10 → EDTRNSPT 07-02 13:24 → EDTRNSPTSTS 07-02 13:24 → 1NO 07-02 13:28 → CMPTRNSPT 07-02 13:46 → 1NO 07-06 07:17 → ENPENDDIS 07-07 11:53 → ENTRNSPT 07-07 16:08 → 1NO 07-07 16:10 → EDTRNSPTSTS 07-07 16:22 → CMPTRNSPT 07-07 16:29
PROVIDERS: Hospitalist; Internal Medicine; Physician Assistant Medical
DX: E11.649 Type 2 diabetes mellitus with hypoglycemia without coma (principal); Z68.41 Body mass index [BMI] 40.0-44.9, adult; L97.921 Non-pressure chronic ulcer of unspecified part of left lower leg limited to breakdown of skin; L97.911 Non-pressure chronic ulcer of unspecified part of right lower leg limited to breakdown of skin; E11.22 Type 2 diabetes mellitus with diabetic chronic kidney disease; E11.622 Type 2 diabetes mellitus with other skin ulcer; I50.32 Chronic diastolic (congestive) heart failure; I13.0 Hypertensive heart and chronic kidney disease with heart failure and stage 1 through stage 4 chronic kidney disease, or unspecified chronic kidney disease; E66.01 Morbid (severe) obesity due to excess calories; I16.0 Hypertensive urgency; E87.6 Hypokalemia; R00.1 Bradycardia, unspecified; N18.9 Chronic kidney disease, unspecified; Z86.73 Personal history of transient ischemic attack (TIA), and cerebral infarction without residual deficits; E78.5 Hyperlipidemia, unspecified; G47.33 Obstructive sleep apnea (adult) (pediatric); Z89.429 Acquired absence of other toe(s), unspecified side; Z79.82 Long term (current) use of aspirin; Z79.4 Long term (current) use of insulin; I25.10 Atherosclerotic heart disease of native coronary artery without angina pectoris; Z83.3 Family history of diabetes mellitus; I87.8 Other specified disorders of veins; I25.2 Old myocardial infarction; I44.0 Atrioventricular block, first degree; Z91.19 Patient's noncompliance with other medical treatment and regimen
CPT/HCPCS: 1NP; ERO; 36415; 36592; 71045; 74176; 80307; 82436; 93005; 93010; 93306; 96372; 96374; 96375; J0360; J1644; J1940; J2405; J2550; J3490; Q2036

== ENCOUNTER 2017-08-08 12:44 | Inpatient (IN) | payer OTHER ==
[~2017-08-08] VITALS: Ht 182.9 cm; Wt 130.7 kg
[~2017-08-08 12:44] MED LIST changes: +CATAPRES-TTS 11 EACH TOP; +COZAAR100 M1 PO; +HYDRALAZINE HCL50 M1 PO; +MINOXIDIL10 M1 PO; +NOVOLOG100 UNIT/2 SC; +PROCARDIA XL90 M1 PO; +VALSARTAN320 M1 PO
[2017-08-08 15:52] LABS: ABSOLUTE BASOPHIL COUNT 0 /CUMM (0.0-0.2); ABSOLUTE EOSINOPHIL COUNT 0.3 /CUMM (0.0-0.7); ABSOLUTE GRANULOCYTE CT 3.6 /CUMM (1.4-6.5); ABSOLUTE LYMPH COUNT 1.5 /CUMM (1.2-3.4); ABSOLUTE MONOCYTE COUNT 0.4 /CUMM (0.10-0.60); BASOPHIL % 0.6 % (0.0-2.0); EOSINOPHIL % 5.3 % (0-5); HEMATOCRIT 38.4 % (42-52); MEAN CORPUSCULAR HGB 30.3 PG (27.0-31.0); MEAN CORPUSCULAR HGB CONC 33.3 G/DL (33.0-37.0); MEAN PLATELET VOLUME 8.7 FL (7.4-10.4); PLATELET COUNT 183 /CUMM (130-400); RBC DISTRIBUTION WIDTH 15.2 % (11.5-14.5); RED BLOOD CELL CT 4.22 /CUMM (4.70-6.10)
--- NOTE | 2017-08-08 16:09 | ED GENERAL ADULT ---
History of Present Illness General Chief Complaint: Lower Extremity Problems Stated Complaint: SWELLING TO LOWER EXTREMITIES Source: patient, old records Exam Limitations: no limitations Vital Signs & Intake/Output Vital Signs & Intake/Output Vital Signs Date Time Temp Pulse Resp B/P B/P Pulse O2 O2 Flow FiO2 Mean Ox Delivery Rate 08/08 1823 62 122/58 08/08 1715 66 182/84 08/08 1715 66 182/84 08/08 1715 66 182/84 08/08 1707 98.0 66 18 182/84 98 08/08 1647 98 Room Air 08/08 1642 78 224/96 08/08 1635 78 18 224/96 97 Room Air 08/08 1258 210/90 08/08 1254 97.1 81 18 229/100 98 Room Air Room Air Allergies Coded Allergies: NO KNOWN ALLERGIES (11/19/13) Reconcile Medications Aspirin (Children's Aspirin) 81 MG TAB.CHEW 1 TAB PO DAILY HEART HEALTH ( Reported) Cholecalciferol (Vitamin D3) (Vitamin D3) 2,000 UNIT TABLET 1 TAB PO DAILY VITAMIN SUPPORT (Reported) Clonidine Tts-1 (Catapres-Tts 1) 0.1 MG/24 HOUR PATCH.TDWK 1 PAT TOP Q168 HTN . Furosemide (Lasix) 40 MG TABLET 1 TAB PO DAILY HEART (Reported) Hydralazine HCl 50 MG TABLET 1.5 TAB PO BID HTN . Insulin Aspart (Novolog) 100 UNIT/ML VIAL 0 SC TIDAC DIABETES 80-150 4 UNITS 151-200 5 UNITS 201-250 6 UNITS 251-300 8 UNITS 301-350 9 UNITS 350-400 10 UNITS > 400 12 UNITS Insulin Degludec (Tresiba Flextouch U-100) 100 UNIT/ML (3 ML) INSULN.PEN 20 UNITS SC QAM DIABETES (Reported) Minoxidil 10 MG TABLET 0.5 TAB PO DAILY Hypertension . Nifedipine (Procardia XL) 90 MG TAB.ER.24 1 TAB PO DAILY HTN . Potassium Chloride (Klor-Con M20) 20 MEQ TAB.ER.PRT 1 TAB PO DAILY LOW POTASSIUM Simvastatin (Simvastatin*) 40 MG TABLET 1 TAB PO DAILY CHOLESTEROL (Reported) Valsartan 320 MG TABLET 1 TAB PO DAILY HTN . Triage Note: TRIAGE: 61 Y/O MALE W PMHX OF CHF AND OSTEOMYLETIS C/O EXTREME EDEMA X3 WEEKS. APPEARS SWOLLEN IN TRIAGE: ARMS, LEGS, HANDS, ETC. MANUAL BP: 210/90 - DID NOT TAKE BP MEDS THIS MORNING. Triage Nurses Notes Reviewed? yes Onset: Abrupt Duration: week(s): (3-4), constant, continues in ED, getting worse Timing: recent history Injury Environment: home Severity: moderate, severe No Modifying Factors: none HPI: 61-year-old male past medical history of renal insufficiency, CHF, coronary artery disease, and hypertension presents for evaluation of lower extremity edema. Patient was hospitalized here a little over a month ago for similar symptoms. He had his medication adjusted and symptoms were getting better. He states that since his discharge no swelling is gradually gotten worse. It now involves his entire bilateral lower extremities and now his scrotum. He states this never been this bad. He has been taking 40 mg of oral Lasix once daily. He reports that he did not take any medicine today. He denies any chest pain but does report some mild shortness of breath. No nausea vomiting or diarrhea no hemoptysis. No recent surgery no recent trauma. No history of DVT. (Jay Espinosa) Past History Travel History Traveled to [place] past 21 day No Medical History Any Pertinent Medical History? 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 FH: diabetes mellitus MOTHER (CVA and [place] at age 60). Hx Contributory? No (Jay Espinosa) Review of Systems Review of Systems Constitutional: Reports: malaise, weakness. EENTM: Reports: no symptoms. Respiratory: Reports: short of breath. Cardiovascular: Reports: peripheral edema. GI: Reports: no symptoms. Genitourinary: Reports: no symptoms. Musculoskeletal: Reports: no symptoms. Skin: Reports: no symptoms. Neurological/Psychological: Reports: no symptoms. Hematologic/Endocrine: Reports: no symptoms. Immunologic/Allergic: Reports: no symptoms. All Other Systems: Reviewed and Negative (Jay Espinosa) Physical Exam Physical Exam General Appearance: well developed/nourished, no apparent distress, alert, awake , obese Head: atraumatic, normal appearance Eyes: Bilateral: normal appearance, PERRL, EOMI. Ears, Nose, Throat: normal pharynx, normal ENT inspection, hearing grossly normal Neck: normal inspection, supple, full range of motion Respiratory: normal breath sounds, chest non-tender, no respiratory distress, lungs clear Cardiovascular: regular rate/rhythm, normal peripheral pulses Peripheral Pulses: 2+ radial (R), 2+ radial (L) Gastrointestinal: soft, non-tender, distention Back: normal inspection, normal range of motion, no vertebral tenderness Extremities: THERE IS BILATERAL NONPITTING TENSE LOWER EXTREMITY EDEMA. hE HAS STASIS DERMATITIS PRESENT., FULL RANGE OF MOTION OF THE BILATERAL UPPER AND LOWER CHIMNEYS IS INTACT. pATIENT IS ABLE TO WALK AND BEAR WEIGHT Neurologic/Psych: no motor/sensory deficits, awake, alert, oriented x 3, normal gait, normal mood/affect Skin: intact, normal color, warm/dry Comments: The scrotum is diffusely swollen Core Measures ACS in differential dx? No CVA/TIA Diagnosis: No Sepsis Present: No Sepsis Focused Exam Completed? No (Jay Espinosa) Progress Differential Diagnoses I considered the following diagnoses in my evaluation of the patient: [CHF exacerbation, acute kidney injury, DVT, dependent edema, electrolyte abnormality , acute coronary syndrome, pneumonia] Plan of Care: Orders Procedure Date/time Status Regular Diet 08/08 D Active FingerStick- Glucose 08/08 1800 Active Patient Data 08/08 1717 Active URINALYSIS 08/08 1710 Complete OXYGEN SETUP (GEN) 08/08 1611 Active Saline Lock 08/08 1611 Active Admit to inpatient 08/08 1611 Active Vital Signs 08/08 1611 Active Activity/Ambulation 08/08 1611 Active Code Status 08/08 1611 Active EKG 08/08 1556 Active TROPONIN LEVEL 08/08 1437 Complete COMPREHENSIVE METABOLIC PANEL 08/08 1437 Complete CBC WITHOUT DIFFERENTIAL 08/08 1437 Complete B-TYPE NATRIURETIC PEP (BNP) 08/08 1437 Complete Intake & Output 08/08 1252 Active Laboratory Tests 08/08/17 1711: Urine Color YEL, Urine Clarity CLEAR, Urine pH 6.0, Ur Specific [place] 1.020, Urine Protein 100 H, Urine Ketones NEG, Urine Nitrite NEG, Urine Bilirubin NEG, Urine Urobilinogen 0.2, Ur Leukocyte Esterase NEG, Ur Microscopic SEDIMENT EXAMINED, Urine RBC RARE, Ur Epithelial Cells RARE, Urine Hemoglobin NEG, Urine Glucose NEG 08/08/17 1514: Anion Gap 13, Estimated GFR 34 L, BUN/Creatinine Ratio 15.0, Glucose 92, Calcium 9.2, Total Bilirubin 0.7, AST 21, ALT 38, Alkaline Phosphatase 118, Troponin I < 0.01, [id number]-[id number]-Hbcllmvksqn Pept 1080 H, Total Protein 6.7, Albumin 3.7, Globulin 3.0, Albumin/Globulin Ratio 1.2, CBC w Diff NO MAN DIFF REQ, RBC 4.22 L, MCV 91.0, MCH 30.3, MCHC 33.3, RDW 15.2 H, MPV 8.7, Gran % 61.0, Lymphocytes % 25.7, Monocytes % 7.4, Eosinophils % 5.3 H, Basophils % 0.6, Absolute Granulocytes 3.6, Absolute Lymphocytes 1.5, Absolute Monocytes 0.4, Absolute Eosinophils 0.3, Absolute Basophils 0 Patient seen and evaluated. He has diffuse lower extremity edema and is getting worse and now spread into his scrotum. He is also hypertensive is not taking any of his medicine today. Patient was given his oral meds except for valsartan which was held due to increasing renal insufficiency. Patient was also given 10 mg of IV labetalol and 40 mg of IV Lasix. Potassium within normal limits. Remaining blood work is within normal limits. Chest x-ray shows evidence of CHF. Negative troponin EKG is stable. Patient will be admitted to the hospital for further evaluation of CHF. He has failed outpatient treatment with oral Lasix. He'll require IV diuresis, serial labs, serial chest x-rays, medication management, IV antihypertensives, cardiology consult. CASE DISCUSSED WITH DR DICKEY HE AGREES. Diagnostic Imaging: Viewed by Me: Radiology Read. Discussed w/RAD: Radiology Read. CXR Impression: PATIENT: JASON HOPPER PRESENT AGE: 61 PATIENT ACCOUNT NO: [id number] : 53 LOCATION: [facility] ORDERING PHYSICIAN: Jay ROBERTS SERVICE DATE: 08/08/17 EXAM TYPE: RAD - XRY-CHEST XRAY, TWO VIEWS EXAMINATION: XR CHEST CLINICAL INFORMATION: CHF COMPARISON: June 2017 TECHNIQUE: Frontal and lateral views of the chest. FINDINGS: Heart is enlarged, The heart is enlarged. There is pulmonary vascular congestion suggestive of congestive heart failure. There is no pleural effusion There is no pneumothorax. There is no acute bone abnormality. IMPRESSION: Congestive heart failure. DICTATED BY: Madeline Gibbons MD DATE/TIME DICTATED:08/08/171655 HEAD OF BUSINESS DEVELOPMENT:JUSTINO DATE/TIME TRANSCRIBED:08/08/171655 CONFIDENTIAL, DO NOT COPY WITHOUT APPROPRIATE AUTHORIZATION. <Electronically signed in Other Vendor System> SIGNED BY: Madeline Gibbons MD 08/08/17 1700 Initial ED EKG: normal sinus rhythm, first-degree AV block, incomplete right bundle, left anterior fascicular block, consider anterior septal infarct Prior EKG: unchanged (Jay Espinosa) Departure Departure Disposition: STILL A PATIENT Condition: Stable Clinical Impression Primary Impression: CHF (congestive heart failure) Qualifiers: Heart failure type: unspecified Heart failure chronicity: acute Qualified Code: I50.9 - Heart failure, unspecified Referrals: Cee Gibbons MD (PCP/Family) Departure Forms: Customer Survey General Discharge Information Admission Note Spoke With: Vicente MATOS,Mikel Documentation of Exam: Documentation of any treatments & extenuating circumstances including Concerns Regarding Discharge (functional status, medication knowledge or non-compliance, living conditions, etc.) that warrant an admission rather than observation: [IV Lasix, medication adjustment, telemetry, serial labs, serial EKGs, cardiology, nephrology] (Jay Espinosa) PA/MATERIAL REPROCESSING ASSOCIATE Co-Sign Statement Statement: ED Attending supervision documentation- x I saw and evaluated the patient. I have also reviewed all the pertinent lab results and diagnostic results. I agree with the findings and the plan of care as documented in the PA's/MATERIAL REPROCESSING ASSOCIATE's documentation. ALFARO, worsening edema, ARF, CHF. [] I have reviewed the ED Record and agree with the PA's/MATERIAL REPROCESSING ASSOCIATE's documentation. [] Additions or exceptions (if any) to the PAs/MATERIAL REPROCESSING ASSOCIATE's note and plan are summarized below: [] (Sotero Dickey MD) Critical Care Note Critical Care Note Critical Care Time: non-applicable (Jay Espinosa) ED Attending Observation Initial Observation Note: I have seen and personally examined JASON HOPPER on 08/08/17 at 1710. I agree with the current emergency department documentation. The disposition (admission or discharge) is uncertain at this time, he needs a period of observation for the following reason(s): The ED Nurse caring for this patient has been personally informed as to what the patient is being observed for. (Jay Espinosa)
--- NOTE | 2017-08-08 17:00 | RADIOLOGY REPORT ---
EXAMINATION: XR CHEST CLINICAL INFORMATION: CHF COMPARISON: June 2017 TECHNIQUE: Frontal and lateral views of the chest. FINDINGS: Heart is enlarged, The heart is enlarged. There is pulmonary vascular congestion suggestive of congestive heart failure. There is no pleural effusion There is no pneumothorax. There is no acute bone abnormality. IMPRESSION: Congestive heart failure.
[2017-08-08] MEDS ORDERED: TRESIBA FL100 UNIT/1 SC (17:19)
--- NOTE | 2017-08-08 17:58 | History & Physical ---
Aura MATOS,[facility] 08/08/17 0597: General Information and HPI MD Statement: I have seen and personally examined JASON MIRAMONTES and documented this H&P. The patient is a 61 year old M who presented with a patient stated chief complaint of [lower extremity swelling]. Source of Information: patient, old records Exam Limitations: no limitations History of Present Illness: Mr. Miramontes 61-year-old male with past medical history significant for HFPEF, osteomyelitis status post bilateral second toe amputation, diabetes, hyperlipidemia, venous insufficiency, JUVE noncompliant with CPAP who presented to ED with chief complaint of lower extremity swelling. Patient was recently discharged July 06, 2017 after treated for hypoglycemia and bradycardia along with persistent hypertension. Patient reported compliance with Lasix and low-salt diet however reported progressive worsening of lower extremity swelling over the last 3 weeks. Patient works at [employer] and spend most of the day on his feet. Last follow-up with his planning director Dr. Parrish about 3 weeks ago, no changes in medication at that time as patient did not have any worsening LE edema around that time. He reported 35 pounds weight gain since his last follow -up with planning director, increase waist grith of his abdomen, puffiness of his face. Patient denied any shortness of breath, orthopnea or paroxysmal nocturnal dyspnea. Denied any chest pain, palpitation, fever or chills. He has chronic venous changes of bilateral lower extremity that he thinks worsening however denied any discharge, pain, tenderness. He had a follow-up with vascular surgery couple of weeks ago with plan for stent placement in August. Patient also was discharged with recommendation to do MRA renal that supposedly be done on next Wednesday however rescheduled to September 02. On presentation patient had blood pressure of 229/100. Denied any headache, blurry vision, chest pain or palpitation. Usually blood pressure systolic range from 150-160. Allergies/Medications Allergies: Coded Allergies: NO KNOWN ALLERGIES (11/19/13) Home Med list Aspirin (Children's Aspirin) 81 MG TAB.CHEW 1 TAB PO DAILY HEART HEALTH ( Reported) Cholecalciferol (Vitamin D3) (Vitamin D3) 2,000 UNIT TABLET 1 TAB PO DAILY VITAMIN SUPPORT (Reported) Clonidine Tts-1 (Catapres-Tts 1) 0.1 MG/24 HOUR PATCH.TDWK 1 PAT TOP Q168 HTN . Furosemide (Lasix) 40 MG TABLET 1 TAB PO DAILY HEART (Reported) Hydralazine HCl 50 MG TABLET 1.5 TAB PO BID HTN . Insulin Aspart (Novolog) 100 UNIT/ML VIAL 0 SC TIDAC DIABETES 80-150 4 UNITS 151-200 5 UNITS 201-250 6 UNITS 251-300 8 UNITS 301-350 9 UNITS 350-400 10 UNITS > 400 12 UNITS Insulin Degludec (Tresiba Flextouch U-100) 100 UNIT/ML (3 ML) INSULN.PEN 20 UNITS SC QAM DIABETES (Reported) Minoxidil 10 MG TABLET 0.5 TAB PO DAILY Hypertension . Nifedipine (Procardia XL) 90 MG TAB.ER.24 1 TAB PO DAILY HTN . Potassium Chloride (Klor-Con M20) 20 MEQ TAB.ER.PRT 1 TAB PO DAILY LOW POTASSIUM Simvastatin (Simvastatin*) 40 MG TABLET 1 TAB PO DAILY CHOLESTEROL (Reported) Valsartan 320 MG TABLET 1 TAB PO DAILY HTN . 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 FH: diabetes mellitus MOTHER (CV[place] and [place] at age 60). Psychosocial History Who Do You Live With? self Services at Home: None ETOH Use: denies use Illicit Drug Use: denies illicit drug use Functional Ability ADLs Independent: dressing, eating, toileting, bathing. Ambulation: independent IADLs Independent: shopping, housework, finances, food prep, telephone, transportation , medication admin. Review of Systems Review of Systems Constitutional: Denies: chills, fever, malaise. EENTM: Denies: blurred vision, double vision. Cardiovascular: Reports: peripheral edema. Denies: chest pain, orthopena, palpitations, syncope. Respiratory: Denies: cough, hemoptysis, orthopnea, short of breath, sputum production, stridor, wheezing. GI: Reports: distention. Denies: abdominal pain, constipation, diarrhea, bowel incontinence, melena, nausea, bloody stool, changes in stool, vomiting, steatorrhea. Genitourinary: Denies: dysuria, frequency, hematuria, hesitation. Musculoskeletal: Denies: joint pain, joint swelling. Skin: Denies: rash. Neurological/Psychological: Denies: confusion, headache, numbness. Hematologic/Endocrine: Denies: bleeding. Exam & Diagnostic Data Last 24 Hrs of Vital Signs/I&O Vital Signs Date Time Temp Pulse Resp B/P B/P Pulse O2 O2 Flow FiO2 Mean Ox Delivery Rate 08/08 1910 98.0 61 18 130/68 97 Room Air 08/08 1823 62 122/58 08/08 1715 66 182/84 08/08 1715 66 182/84 08/08 1715 66 182/84 08/08 1707 98.0 66 18 182/84 98 08/08 1647 98 Room Air 08/08 1642 78 224/96 08/08 1635 78 18 224/96 97 Room Air 08/08 1258 210/90 08/08 1254 97.1 81 18 229/100 98 Room Air Room Air Intake & Output 08/08 1600 08/08 0800 08/08 0000 Intake Total Output Total Balance Patient 145.15 kg Weight Weight Reported by Patient Measurement Method Physical Exam General Appearance Alert, Oriented X3, Cooperative, No Acute Distress Skin No Rashes Skin Temp/Moisture Exam: Warm/Dry HEENT Atraumatic, PERRLA, EOMI, Mucous Membr. moist/pink Neck Supple, JVD Lymphatic No cervical lymphadenopathy Cardiovascular Regular Rate, Normal S1, Normal S2, No Murmurs Lungs Clear to Auscultation, Normal Air Movement, no crackles Abdomen Normal Bowel Sounds, Soft, No Tenderness, destention Neurological Normal Speech, Strength at 5/5 X4 Ext, Normal Tone, Sensation Intact, Cranial Nerves 3-12 NL, Reflexes 2+ Extremities No Clubbing, No Cyanosis, Normal Pulses, Pedal edema bilateral +1 up to kness Erythema bilateral, no tenderness Body Front and Back (Adult) 1) 2) Last 24 Hrs of Labs/Jordin: Laboratory Tests 08/08/17 1711: Urine Color YEL, Urine Clarity CLEAR, Urine pH 6.0, Ur Specific [place] 1.020, Urine Protein 100 H, Urine Ketones NEG, Urine Nitrite NEG, Urine Bilirubin NEG, Urine Urobilinogen 0.2, Ur Leukocyte Esterase NEG, Ur Microscopic SEDIMENT EXAMINED, Urine RBC RARE, Ur Epithelial Cells RARE, Urine Hemoglobin NEG, Urine Glucose NEG 08/08/17 1514: Anion Gap 13, Estimated GFR 34 L, BUN/Creatinine Ratio 15.0, Glucose 92, Calcium 9.2, Total Bilirubin 0.7, AST 21, ALT 38, Alkaline Phosphatase 118, Troponin I < 0.01, Dfq-[id number]-Uwbckjwqcpg Pept 1080 H, Total Protein 6.7, Albumin 3.7, Globulin 3.0, Albumin/Globulin Ratio 1.2, CBC w Diff NO MAN DIFF REQ, RBC 4.22 L, MCV 91.0, MCH 30.3, MCHC 33.3, RDW 15.2 H, MPV 8.7, Gran % 61.0, Lymphocytes % 25.7, Monocytes % 7.4, Eosinophils % 5.3 H, Basophils % 0.6, Absolute Granulocytes 3.6, Absolute Lymphocytes 1.5, Absolute Monocytes 0.4, Absolute Eosinophils 0.3, Absolute Basophils 0 Diagnostic Data EKG Results Normal sinus rhythm, first-degree heart block, incomplete right bundle branch block, right anterior fascicular block, old anterior lead infarct CXR Results COMPARISON: June 2017 TECHNIQUE: Frontal and lateral views of the chest. FINDINGS: Heart is enlarged, The heart is enlarged. There is pulmonary vascular congestion suggestive of congestive heart failure. There is no pleural effusion There is no pneumothorax. There is no acute bone abnormality. IMPRESSION: Congestive heart failure. Assessment/Plan Assessment: Mr. Miramontes 61-year-old male with past medical history significant for HFPEF, osteomyelitis status post bilateral second toe amputation, diabetes, hyperlipidemia, venous insufficiency, JUVE noncompliant with CPAP who presented to ED with chief complaint of lower extremity swelling. Problem list #HFPEF acute exacerbation proBNP 1080 #Kidney insufficiency creatinine baseline 1.6/1.8 #Persistent hypertension, patient received an ED hydralazine 75, nifedipine 90, labetalol 10 once IV, Lasix 40 once IV, lidocaine patch and blood pressure dropped to 122/58 at time of my evaluation #Mild hypernatremia #Diabetes mellitus Plan -Admit to telemetry floor -Daily weight -Strict ins and outs -Lasix 40 IV twice daily -Close monitor of kidney function -Repeat BMP in a.m. -Repeat CBCs in a.m. patient does not have signs of cellulitis however close monitoring is warranted monitor temperature and leukocytosis--erythema was margined -We will continue clonidine, valsartan -Continue hydralazine with holding parameters for blood pressure 150 -We will hold nefadipine and minoxidil and will sign out to started if blood pressure shoots up--at time of evaluation patient blood pressure was 122/58 -Diabetes Accu-Chek, Levemir 18 daily and NovoLog sliding scale low dose. Patient reported blood pressure of 80 this morning -We will obtain cardiology consultation in a.m. -We will repeat one set of troponin EKG--first one negative -Maintain leg elevation -Wound care -DVT prophylaxis heparin subcutaneous -Diet heart healthy -Code full As Ranked By This Provider Problem List: 1. HTN (hypertension) 2. Diabetes 3. CHF (congestive heart failure) Qualifiers Heart failure type: unspecified Heart failure chronicity: acute Qualified Code: I50.9 - Heart failure, unspecified Core Measures/Misc (01/31) Acute Coronary Syndrome ACS Diagnosis: No Congestive Heart Failure Congestive Heart Failure Diagnosis No Cerebrovascular Accident CVA/TIA Diagnosis: No VTE (View Protocol) VTE Risk Factors Age>40 No Mechanical VTE Prophylaxis d/t N/A MechProphylax Ordered No VTE Pharm Prophylaxis d/t NA PharmProphylax ordered Sepsis (View protocol) Sepsis Present: No Vicente MATOS,Mikel 08/09/17 1108: Attending MD Review Statement Attending Statement Attending MD Statement: examined this patient, discuss w/resident/PA/FACILITY SERVICE MANAGER, agreed w/resident/PA/FACILITY SERVICE MANAGER Attending Assessment/Plan: Patient seen and examined. Plan of care discussed with the medical team and the patient. Available lab work and radiology test reports were reviewed In summary this is a 61-year-old male with past medical history significant for HFPEF, osteomyelitis status post bilateral second toe amputation, diabetes, hyperlipidemia, venous insufficiency, JUVE noncompliant with CPAP who presented to ED with chief complaint of lower extremity swelling. Patient was recently discharged July 06, 2017 after treated for hypoglycemia, bradycardia uncontrolled hypertension. He was discharged on Lasix. Patient reports the that he has been compliant with his Lasix. Despite taking Lasix he has been noticing progressive increase in edema lower extremities with about 35 pound weight gain. On exam patient did not appear to be short of breath or tachypneic. He was able to lay flat in bed. He was saturating 98% room air. Lower extension show massive edema bilaterally. Assessment plan Exacerbation of heart failure Acute and chronic renal failure with creatinine now 2 History of hypertension History of diabetes Plan is to admit to telemetry floor Patient will be monitored for daily weight input output. We'll start Lasix 40 mg twice a day and obtain cardiac consult in a.m. Leg elevation
[2017-08-08 20:47] VITALS: BP 150/80
[2017-08-09 06:48] VITALS: BP 160/70
--- NOTE | 2017-08-09 07:33 | PN- Housestaff ---
Bakari MATOS,[facility] 08/09/17 0733: Subjective Follow-up For: CHF CKD HTN ?cellultiis b/l vs chronic venous stasis changes Tele-Events Since Last Visit: NSR/first-degree AV block HR 6070 MN 0.28 Subjective: No acute events overnight. Patient slept okay. No issues overnight. has no pain. States that his diffuse swelling of his entire body. Review of Systems Constitutional: Reports: see HPI. Objective Last 24 Hrs of Vital Signs/I&O Vital Signs Date Time Temp Pulse Resp B/P B/P Pulse O2 O2 Flow FiO2 Mean Ox Delivery Rate 08/09 1400 98.0 66 20 200/100 96 08/09 0931 66 150/70 08/09 0659 98.3 68 20 96 Room Air 08/09 0648 160/70 08/09 0559 70 180/88 08/08 2220 66 150/80 08/08 2047 97 Room Air 08/08 204 98.0 70 20 150/80 97 Room Air 08/08 1910 98.0 61 18 130/68 97 Room Air Intake & Output 08/09 1600 08/09 0800 08/09 0000 Intake Total 620 120 120 Output Total 483 583 0418 Balance 220 -580 -930 Intake, IV 20 Intake, Oral 600 120 120 Number 1 Bowel Movements Output, Urine [phone] Patient 330 lb Weight Weight Bed scale Measurement Method Physical Exam General Appearance: Alert, Oriented X3, Cooperative Cardiovascular: Regular Rate, Normal S1, Normal S2 Lungs: Clear to Auscultation, Normal Air Movement Abdomen: Normal Bowel Sounds, Soft, No Tenderness Extremities: GENERALIZED EDEMA OF UPPER AND LOWER EXTREMITIES, erythema vs b/l chronic venous stassi changes Vascular: 2+ RADIAL PULSES Current Medications: Current Medications Sig/Jacque Start time Last Medication Dose Route Stop Time Status Admin Acetaminophen 650 MG Q6P PRN 08/08 191 AC PO Aspirin 81 MG DAILY 08/09 1000 AC 08/09 PO 0931 Atorvastatin Calcium 20 MG 1700 08/09 1700 AC PO Clonidine 1 PAT Q168 08/15 1000 AC TOP Furosemide 40 MG 7:30 AM, & 4:30 PM 08/09 0730 AC 08/09 IV 1420 Heparin Sodium 5,000 UNIT Q8 08/08 2199 AC 08/09 (Porcine) SC 1421 Hydralazine HCl 75 MG BID 08/08 2199 AC 08/09 PO 0559 Insulin Aspart 0 TIDAC 08/09 0800 AC 08/09 SC 1233 Insulin Detemir 18 UNITS DAILY 08/09 1000 AC 08/09 SC 0931 Losartan Potassium 100 MG DAILY 08/09 1000 AC 08/09 PO 0931 Last 24 Hrs of Lab/Jordin Results Last 24 Hrs of Labs/Mics: Laboratory Tests 08/09/17 0633: Anion Gap 12, Estimated GFR 38 L, BUN/Creatinine Ratio 16.7, CBC w Diff NO MAN DIFF REQ, RBC 3.89 L, MCV 91.2, MCH 30.9, MCHC 33.9, RDW 15.0 H, MPV 8.9, Gran % 49.1, Lymphocytes % 32.8, Monocytes % 8.0, Eosinophils % 9.3 H, Basophils % 0.8, Absolute Granulocytes 2.3, Absolute Lymphocytes 1.5, Absolute Monocytes 0.4 , Absolute Eosinophils 0.4, Absolute Basophils 0 08/08/17 2230: Troponin I 0.01 Assessment/Plan Assessment: Mr. Miramontes 61-year-old male with past medical history significant for HFPEF, osteomyelitis status post bilateral second toe amputation, diabetes, hyperlipidemia, venous insufficiency, JUVE noncompliant with CPAP who presented to ED with chief complaint of lower extremity swelling. Problem list #CHF proBNP 1080 CXR suggestive of CHF -Continue monitoring ins and outs, daily weights -Continue Lasix as creatinine is stable -Follow cardiology recommendations #hypertension -Hold nifedipine and minoxidil -Continue clonidine, losartan, hydralazine, Lasix, -Follow nephrology recommendations blood pressure control in the setting of CKD #CKD Cr 1.8 -follow nepo recs #diabetes -cont levemir, NovoLog sliding scale #chronic medical conditions: hld -cont atorvastatin #?LE cellulitis no WBC aferbile -cont to monitor -cont wound care -DVT prophylaxis heparin subcutaneous -Diet heart healthy -Code full Problem List: 1. HTN (hypertension) 2. CKD (chronic kidney disease) 3. Heart failure 4. Venous stasis Pain Ratin Pain Location: none Pain Goal: Pain 4 or less Pain Plan: pain pathway Tomorrow's Labs & Rationales: Kathryn Valdes MD 08/09/17 1317: Attending MD Review Statement Attending Statement Attending MD Statement: examined this patient, discuss w/resident/PA/MANAGER PEST, agreed w/resident/PA/MANAGER PEST, reviewed EMR data (avail), discussed with nursing, discussed with case mgmt, reviewed images Attending Assessment/Plan: Patient well known to me from previous admission. This is a 61-year-old male with multiple medical problems including refractory hypertension on multiple antihypertensives as an outpatient, no beta jose secondary to significant bradycardia, obstructive sleep apnea who is here with what appears to be acute diastolic heart failure with a hypertensive urgency. Patient came in with symptoms of generalized edema and a pressure of 229/100. After multiple antihypertensives in the ER it went down to 130/70 and earlier this morning before meds was 180/80 and now 150/70. He remains on the Catapres patch, the high-dose ARB, the Lasix that has been switched to 40 IV twice a day. He is not on the nifedipine or the minoxidil and that decision was made when his pressure dropped yesterday. He has CKD with a baseline creatinine of 1.8. His last echo in June shows diastolic dysfunction and I think this is acute diastolic heart failure. Will need to continue the IV Lasix, follow-up closely with cardiology and titrate the blood pressure medicines for uncontrolled hypertension.
[2017-08-09 08:02] LABS: ABSOLUTE BASOPHIL COUNT 0 /CUMM (0.0-0.2); ABSOLUTE EOSINOPHIL COUNT 0.4 /CUMM (0.0-0.7); ABSOLUTE GRANULOCYTE CT 2.3 /CUMM (1.4-6.5); ABSOLUTE LYMPH COUNT 1.5 /CUMM (1.2-3.4); ABSOLUTE MONOCYTE COUNT 0.4 /CUMM (0.10-0.60); BASOPHIL % 0.8 % (0.0-2.0); EOSINOPHIL % 9.3 % (0-5); GRANULOCYTE % 49.1 % (42.2-75.2); HEMATOCRIT 35.5 % (42-52); MEAN CORPUSCULAR HGB 30.9 PG (27.0-31.0); MEAN CORPUSCULAR HGB CONC 33.9 G/DL (33.0-37.0); MEAN CORPUSCULAR VOLUME 91.2 FL (80.0-94.0); MEAN PLATELET VOLUME 8.9 FL (7.4-10.4); PLATELET COUNT 163 /CUMM (130-400); RED BLOOD CELL CT 3.89 /CUMM (4.70-6.10); WHITE BLOOD CELL COUNT 4.7 /CUMM (4.8-10.8)
--- NOTE | 2017-08-09 11:13 | Admission Certification ---
Admission Certification Certification Statement - As attending physician, I certify that at the time of - admission, based on clinical presentation, severity of - symptoms, need for further diagnostic testing and - therapeutic interventions, and risk of adverse outcomes - without in-hospital treatment, in my clinical assessment, - this patient requires an acute hospital stay for a minimum - of two nights or longer. I have also considered psychsocial - factors such as support system, advanced age, financial - issues, cognitive issues, and failed out-patient treatments, - past re-admission history, safety of patient, and lack of - compliance as applicable. Specific rationale supporting this admission is: Exacerbation of CHF and lower extent edema
[2017-08-09 14:00] VITALS: BP 200/100
--- NOTE | 2017-08-09 18:16 | Cons- Nephrology ---
General Information and HPI Consulting Request Date of Consult: 08/09/17 Requested By: Linda MATOS,Donnell Chavira Source of Information: patient, old records Exam Limitations: no limitations History of Present Illness: 61-year-old man admitted yesterday with increasing lower extremity and scrotal edema as well as poorly controlled hypertension. He has a background that includes diabetes mellitus with probable retinopathy, hypertension, hyperlipidemia, heart failure with preserved ejection fraction, peripheral vascular disease status post toe amputations, obstructive sleep apnea and a history of an elevated serum creatinine (1.4-1.8) since March 2016. He was recently discharged from [facility] after being treated for hypoglycemia, bradycardia and difficult to control hypertension. Beta jose was discontinued because of bradycardia. He was discharged on Lasix 40 mg daily hydralazine 75 mg twice a day clonidine patch 0.1 mg daily minoxidil 10 mg daily nifedipine XL 90 mg daily, Valsartan 320 mg daily and KCl 20 mEq daily. Echocardiogram last month showed LVH with normal LV systolic function. Doppler ultrasound of his kidneys showed normal size kidneys with increased echogenicity but no evidence for renal artery stenosis. His creatinine at time of discharge on 07/06 was 1.7 rising to 2.0 yesterday and then down slightly to 1.8 today. Urinalysis currently shows 100 mg percent dipstick proteinuria without blood. Blood pressure at presentation was about 220/100 falling to 130/68 today. Since admission has been diuresed with IV Lasix 40 mg twice a day resulting in a negative fluid balance of approximately 1300 mL since admission. There has been no exposure to NSAIDs, parenteral contrast or antibiotics. Past medical history is as noted above Medications: See above for his antihypertensive meds Allergies: No known drug allergies Family history is positive for severe renal failure at the end of his father's life for which his father had refused dialysis. There is a strong family history for diabetes mellitus especially on the maternal side but no other family history for kidney disease. Social history: Single, lives with a roommate (boarder), no history of cigarette smoking, alcohol abuse or drug abuse. He works at [employer] where he is on his feet most of the day. Allergies/Medications Allergies: Coded Allergies: NO KNOWN ALLERGIES (11/19/13) Home Med List: Aspirin (Children's Aspirin) 81 MG TAB.CHEW 1 TAB PO DAILY HEART HEALTH ( Reported) Cholecalciferol (Vitamin D3) (Vitamin D3) 2,000 UNIT TABLET 1 TAB PO DAILY VITAMIN SUPPORT (Reported) Clonidine Tts-1 (Catapres-Tts 1) 0.1 MG/24 HOUR PATCH.TDWK 1 PAT TOP Q168 HTN . Furosemide (Lasix) 40 MG TABLET 1 TAB PO DAILY HEART (Reported) Hydralazine HCl 50 MG TABLET 1.5 TAB PO BID HTN . Insulin Aspart (Novolog) 100 UNIT/ML VIAL 0 SC TIDAC DIABETES 80-150 4 UNITS 151-200 5 UNITS 201-250 6 UNITS 251-300 8 UNITS 301-350 9 UNITS 350-400 10 UNITS > 400 12 UNITS Insulin Degludec (Tresiba Flextouch U-100) 100 UNIT/ML (3 ML) INSULN.PEN 20 UNITS SC QAM DIABETES (Reported) Minoxidil 10 MG TABLET 0.5 TAB PO DAILY Hypertension . Nifedipine (Procardia XL) 90 MG TAB.ER.24 1 TAB PO DAILY HTN . Potassium Chloride (Klor-Con M20) 20 MEQ TAB.ER.PRT 1 TAB PO DAILY LOW POTASSIUM Simvastatin (Simvastatin*) 40 MG TABLET 1 TAB PO DAILY CHOLESTEROL (Reported) Valsartan 320 MG TABLET 1 TAB PO DAILY HTN . Review of Systems Review of Systems: Constitutional: Denies: chills, fever, malaise. EENTM: Denies: blurred vision, double vision. Cardiovascular: Reports: peripheral edema. Denies: chest pain, orthopena, palpitations, syncope. Respiratory: Denies: cough, hemoptysis, orthopnea, short of breath, sputum production, stridor, wheezing. GI: Reports: distention. Denies: abdominal pain, constipation, diarrhea, bowel incontinence, melena, nausea, bloody stool, changes in stool, vomiting, steatorrhea. Genitourinary: Denies: dysuria, frequency, hematuria, hesitation. Musculoskeletal: Denies: joint pain, joint swelling. Skin: Denies: rash. Neurological/Psychological: Denies: confusion, headache, numbness. Hematologic/Endocrine: Denies: bleeding. Past History Travel History Traveled to [place] past 21 day No Medical History Neurological: NONE EENT: NONE Cardiovascular: CHF, hypertension, hyperlipidemia Respiratory: obstructive sleep apnea, pneumonia Gastrointestinal: NONE Hepatic: NONE Renal: NONE Musculoskeletal: osteomyelitis Psychiatric: NONE Endocrine: diabetes Blood Disorders: NONE Cancer(s): NONE ACTION FINISHER/Reproductive: NONE Surgical History Surgical History: left hip surgery left toe amputation for osteomyelitis left toe amputation Family History Relations & Conditions If Any: FATHER (diabetes and of stomach cancer). FH: diabetes mellitus MOTHER (CVA and PA at age 60). Psychosocial History Who Do You Live With? self Services at Home: None Smoking Status: Never Smoked ETOH Use: denies use Illicit Drug Use: denies illicit drug use Functional Ability ADLs Independent: dressing, eating, toileting, bathing. Ambulation: independent IADLs Independent: shopping, housework, finances, food prep, telephone, transportation , medication admin. Exam & Diagnostic Data Vital Signs and I&O Vital Signs Date Time Temp Pulse Resp B/P B/P Pulse O2 O2 Flow FiO2 Mean Ox Delivery Rate 08/09 1400 98.0 66 20 200/100 96 08/09 0931 66 150/70 08/09 0659 98.3 68 20 96 Room Air 08/09 0648 160/70 08/09 0559 70 180/88 08/08 2220 66 150/80 08/08 2047 97 Room Air 08/08 2047 98.0 70 20 150/80 97 Room Air 08/08 1910 98.0 61 18 130/68 97 Room Air 08/08 1823 62 122/58 Intake & Output 08/09 1600 08/09 0400 08/08 1600 08/08 0400 08/07 1600 08/07 0400 Intake Total 740 120 Output Total 1100 1050 Balance -360 -930 Intake, IV 20 Intake, Oral 720 120 Number 1 Bowel Movements Output, Urine 1100 1050 Patient 330 lb 320 lb Weight Weight Bed scale Reported by Patient Measurement Method Physical Exam: General: Well-developed, obese, pleasant white male in NAD Skin: See "Extremities" below, no rash or jaundice HEENT: Conjunctivae pink, sclerae anicteric, mucous membranes moist Neck: Without masses or thyromegaly, no supraclavicular or cervical adenopathy Chest: Diminished breath sounds at bases with a few bibasilar rales Heart: Regular rate and rhythm without S3 or rub Abdomen: Obese, soft and nontender without palpable masses or organomegaly; no abdominal or flank bruits Extremities: 1-2+ edema to the knees bilaterally with areas of stasis dermatitis /?previous cellulitis in both lower pretibial regions Neuro: Awake and alert, no focal findings, no asterixis or myoclonus Assessment/Plan Assessment/Recommendations Assessment: 61-year-old man with multiple comorbidities as noted above and admitted with severe volume overload and acute kidney injury superimposed on chronic kidney disease. The volume overload may be due to congestive heart failure, perhaps exacerbated by the salt retentive effects of the vasodilators that he is on for blood pressure control, especially the minoxidil. More aggressive diuresis might have mitigated this effect but it is understandable that there was concern about worsening his renal function. In the absence of high-grade proteinuria the etiology of his chronic kidney disease is less likely to be classic diabetic glomerulosclerosis and more likely related to hypertensive nephrosclerosis. The CECY is most likely on a hemodynamic/prerenal basis. I cannot rule out large vessel disease despite the recent negative Doppler ultrasound (given his body habitus) and consideration may be given to proceeding with an MRA, although there is risk of inducing further renal damage with contrast exposure. Parenthetically, the absence of proteinuria also essentially rules out a diagnosis of nephrosis as a cause of his worsening edema. Recommendations: 1. 24-hour urine for protein and creatinine excretion 2. Serologic evaluation to include DAVID, C3, C4, hepatitis serologies and serum immunoelectrophoresis 3. As he appears to be clinically improving, can convert to an oral loop diuretic i.e. Lasix 80 mg or torsemide 40 mg every morning. He may ultimately require a twice a day dosage. 4. Continue to monitor chemistries, intake and output 5. Continue calcium channel jose, ARB and hydralazine (75 mg 3 times a day) but would consider holding clonidine and, at least for the moment, minoxidil as well. 6. Consider an MRA of his renal arteries if his blood pressure remains an issue despite being euvolemic and on more than 3 antihypertensives Thank you. Will follow along with you.
--- NOTE | 2017-08-09 18:28 | Cons- Cardiology ---
General Information and HPI Consulting Request Date of Consult: 08/09/17 Requested By: Linda MATOS,Donnell Chavira History of Present Illness: This patient is a 61 year old male with history of hypertension, dyslipidemia and diabetes. At baseline he is able to engage in mild to moderate activity without symptoms. Over the past three weeks this patient has noted severe swelling of his legs bilaterally as well as his scrotum. There is no associated shortness of breath at his current level of activity but he does have orthopnea. Otherwise this patient is without chest pain, pressure or tightness and he denies lightheadedness or palpitations. Creatinine is elevated to 1.8. About a month ago this patient was found on the ground unresponsive. EMS found the patient bradycardic and hypoglycemic and he was given an ampule of D50 and both atropine and glucagon. At that time the patient had not followed up in the office for over a year and had stopped or was taken off many of his medications. He is now on Hydralazine, Minoxilidil and Nifedipine. In 2016 the patient reported a moderate to severe, non-radiating chest pressure and, in the past he had some severe heartburn. A stress test showed an EF of 38% with a small partial fixed inferior defect but no ischemia. Cardiac workup also included an echocardiogram showing a normal EF of 70% with moderate left ventricular hypertrophy and impaired LV relaxation. He has mild left atiral enlargement, trace MR, TR and AI. Allergies/Medications Allergies: Coded Allergies: NO KNOWN ALLERGIES (11/19/13) Home Med List: Aspirin (Children's Aspirin) 81 MG TAB.CHEW 1 TAB PO DAILY HEART HEALTH ( Reported) Cholecalciferol (Vitamin D3) (Vitamin D3) 2,000 UNIT TABLET 1 TAB PO DAILY VITAMIN SUPPORT (Reported) Clonidine Tts-1 (Catapres-Tts 1) 0.1 MG/24 HOUR PATCH.TDWK 1 PAT TOP Q168 HTN . Furosemide (Lasix) 40 MG TABLET 1 TAB PO DAILY HEART (Reported) Hydralazine HCl 50 MG TABLET 1.5 TAB PO BID HTN . Insulin Aspart (Novolog) 100 UNIT/ML VIAL 0 SC TIDAC DIABETES 80-150 4 UNITS 151-200 5 UNITS 201-250 6 UNITS 251-300 8 UNITS 301-350 9 UNITS 350-400 10 UNITS > 400 12 UNITS Insulin Degludec (Tresiba Flextouch U-100) 100 UNIT/ML (3 ML) INSULN.PEN 20 UNITS SC QAM DIABETES (Reported) Minoxidil 10 MG TABLET 0.5 TAB PO DAILY Hypertension . Nifedipine (Procardia XL) 90 MG TAB.ER.24 1 TAB PO DAILY HTN . Potassium Chloride (Klor-Con M20) 20 MEQ TAB.ER.PRT 1 TAB PO DAILY LOW POTASSIUM Simvastatin (Simvastatin*) 40 MG TABLET 1 TAB PO DAILY CHOLESTEROL (Reported) Valsartan 320 MG TABLET 1 TAB PO DAILY HTN . Review of Systems Review of Systems: A review of systems if negative other than the above. Past History Travel History Traveled to [place] past 21 day No Medical History Neurological: NONE EENT: NONE Cardiovascular: CHF, hypertension, hyperlipidemia Respiratory: obstructive sleep apnea, pneumonia Gastrointestinal: NONE Hepatic: NONE Renal: NONE Musculoskeletal: osteomyelitis Psychiatric: NONE Endocrine: diabetes Blood Disorders: NONE Cancer(s): NONE IMCU NURSE/Reproductive: NONE Surgical History Surgical History: left hip surgery left toe amputation for osteomyelitis left toe amputation Family History Relations & Conditions If Any: FATHER (diabetes and of stomach cancer). FH: diabetes mellitus MOTHER (CVA and [place] at age 60). Psychosocial History Who Do You Live With? self Services at Home: None Smoking Status: Never Smoked ETOH Use: denies use Illicit Drug Use: denies illicit drug use Functional Ability ADLs Independent: dressing, eating, toileting, bathing. Ambulation: independent IADLs Independent: shopping, housework, finances, food prep, telephone, transportation , medication admin. Exam & Diagnostic Data Vital Signs and I&O Vital Signs Date Time Temp Pulse Resp B/P B/P Pulse O2 O2 Flow FiO2 Mean Ox Delivery Rate 08/09 1400 98.0 66 20 200/100 96 08/09 0931 66 150/70 08/09 0659 98.3 68 20 96 Room Air 08/09 0648 160/70 08/09 0559 70 180/88 08/08 2220 66 150/80 08/08 2046 97 Room Air 08/08 2046 98.0 70 20 150/80 97 Room Air 08/08 1910 98.0 61 18 130/68 97 Room Air 08/08 1823 62 122/58 Intake & Output 08/09 1600 08/09 0800 08/09 0000 08/08 1600 08/08 0808/08 0000 Intake Total 620 120 120 Output Total 112 785 6099 Balance 220 -580 -930 Intake, IV 20 Intake, Oral 600 120 120 Number 1 Bowel Movements Output, Urine [phone] Patient 330 lb 320 lb Weight Weight Bed scale Reported by Patient Measurement Method Physical Exam: General: WD/ obese male in NAD; alert and oriented x 3 HEENT: NC/AT, PERRL, EOMI Neck: no JVD, no carotid bruit Heart: RRR with 2/6 systolic murmur Lungs: clear bilaterally ABdomen: soft, obese, NT, +ve bowel sounds : severe scrotal edema Extremities: 2+ leg edema bilaterally Assessment/Plan Assessment/Plan * This patient had a prior syncopal episode that was most likely due to hypoglycemia. He nevertheless was noted by EMS to be bradycardic. There is also some concern that beta jose may exacerbate bronchospasm. We will therefore avoid beta jose for now. 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 His echocardiogram does not show any significant regional wall motion abnormality. There is no evidence to support an acute coronary syndrome at this time. His ST elevations are likely repolarization changes in the setting of an incomplete BBB and are likely related to LVH from hypertensive heart disease. Continue aspirin and a statin. * This patient has severe hypertension which has been treated with three medications that have a tendency to cause peripheral edema. We will stop his Minoxidil and will increase clonidine to 0.3mg/day. Stop Lasix and begin torsemide at 10mg IV daily with monitoring of his BUN, creatinine and potassium. Continue Losartan at 100mg daily. Continue hydralazine at 100mg BID. He should be on a low sodium diet. * He has not used his CPAP for a very long time and this has likely contributed to his hypertension. I would restart CPAP. The patient has evidence of a very thickened heart with diastolic dysfunction that is almost certainly related to his long-standing hypertension. Consult Acknowledgment - Thank you for your consult request.
[2017-08-09 22:05] VITALS: BP 200/110
[2017-08-10 00:41] VITALS: BP 190/88
[2017-08-10 06:39] VITALS: BP 150/70
--- NOTE | 2017-08-10 08:17 | PN- Housestaff ---
Bakari MATOS,[facility] 08/10/17 0817: Subjective Follow-up For: CHF CKD HTN ?cellultiis b/l vs chronic venous stasis changes Tele-Events Since Last Visit: SB/NSR HR 59-71 QRS .12 WI .30 6beat vtach this afternoon Subjective: Patient was hypertensive overnight. Was given 1 dose of home nifedipine which improved his blood pressure. No issues overnight. No complaints. States swelling decreased. Patient willing to try cpap depending on mask. Review of Systems Constitutional: Reports: see HPI. Objective Last 24 Hrs of Vital Signs/I&O Vital Signs Date Time Temp Pulse Resp B/P B/P Pulse O2 O2 Flow FiO2 Mean Ox Delivery Rate 08/10 0835 66 150/70 08/10 0835 66 150/70 08/10 0639 98.8 66 20 150/70 94 Room Air 08/10 0336 58 190/88 08/10 0041 61 190/88 08/09 2205 98.2 62 20 200/110 97 Room Air 08/09 1400 98.0 66 20 200/100 96 Intake & Output 08/10 1600 08/10 0800 08/10 0000 Intake Total 320 Output Total 675 1600 Balance -355 -1600 Intake, Oral 320 Output, Urine 675 1600 Patient 327 lb Weight Weight Bed scale Measurement Method Physical Exam General Appearance: Alert, Oriented X3, Cooperative Cardiovascular: Regular Rate, Normal S1, Normal S2 Lungs: Clear to Auscultation, Normal Air Movement Abdomen: Normal Bowel Sounds, Soft, No Tenderness Extremities: 2+ LE edema to mid tibia, improved from y-day Vascular: 2+ radial and pedal pulses Assessment/Plan Assessment: A:61-year-old male with past medical history significant for HFPEF, osteomyelitis status post bilateral second toe amputation, diabetes, hyperlipidemia, venous insufficiency, JUVE noncompliant with CPAP who presented to ED with chief complaint of lower extremity swelling. Problem list #hypertensive urgency with hx of JUVE but non compliant on CPAP -cont nifediepine, hydralazine tid, losartan, clonidine patch, for htn control. HOLDING minoxidil -called resp to help potentially restart cpap -hydralazine increased to TID -Continue clonidine, losartan, hydralazine, Lasix, -Follow nephrology recommendations blood pressure control in the setting of CKD -pt agreed to outpatient sleep study for possible new cpap mask #CHF/anasarca proBNP 1080 CXR suggestive of CHF -f/u 24-hour urine for protein and creatinine excretion -f/u DAVID, C3, C4, hepatitis serologies and serum immunoelectrophoresis -Continue monitoring ins and outs, daily weights -Continue Lasix as creatinine is stable -Follow cardiology recommendations #CKD Cr 1.8 -follow neprho recs #chronic venous stasis vs ?LE cellulitis no WBC aferbile -cont to monitor -cont wound care #diabetes -cont levemir, NovoLog sliding scale #chronic medical conditions: hld -cont atorvastatin -DVT prophylaxis heparin subcutaneous -Diet heart healthy -Code full Problem List: 1. CKD (chronic kidney disease) 2. Heart failure 3. Venous stasis 4. Hypertensive urgency Pain Ratin Pain Location: none Pain Goal: Pain 4 or less Pain Plan: pain pathway Tomorrow's Labs & Rationales: cbc bep Kian Mckeonscott 08/10/17 1316: Attending MD Review Statement Attending Statement Attending MD Statement: examined this patient, discuss w/resident/PA/DRIFTMAN, agreed w/resident/PA/DRIFTMAN, reviewed EMR data (avail), discussed with nursing, discussed with case mgmt Attending Assessment/Plan: Hypertensive urgency-BP still high today. D/w pt and nephrology the care plan. Will restart on his home dose of nifedipine. Will hold off on MRA to evaluate for renal arterny stenosis as of now due to his CECY on CKD. His baseline cr is 1.4-1.5. Noah cont on hydralazine 75mg tid as of now and catapress patch and will go up on it if his bp stays high. Obstructive sleep apnea - pt non complaint with CPAP. We will do overnight pulse oxymetry and schedule pt for outpt sleep study. Encouraged pt to be complaint with his meds and CPAP. dw/ pt the care plan.
--- NOTE | 2017-08-10 10:30 | Event Note ---
Event Note Event Note: CPAP was ordered on admission, patient refused CPAP per RT note on cancel order. plz view orders.
[2017-08-10 14:00] VITALS: BP 164/80
--- NOTE | 2017-08-10 15:31 | PN- Nephrology ---
Assessment/Plan Nephrology Assessment: 1. CKD/CECY - improved and stable 2. CHF/volume overload - improved 3. Hypertension - labile 4. Obstructive sleep apnea - not using CPAP Suggestion: 1. Starting tomorrow would change to oral loop diuretics i.e. furosemide 80 mg daily or torsemide 40 mg daily; he may ultimately require twice a day dosing. 2. Continue antihypertensive regimen as discussed 3. 24-hour urine in progress 4. Continue to encourage regular use of CPAP Subjective Subjective: Patient feels a bit better today with less swelling and less shortness of breath. Blood pressure high last evening and early this morning, much improved today. Continues to refuse CPAP. Intake and output over the past 24 hours: 740 /2700. Creatinine stable at 1.8. Electrolytes unremarkable. DAVID, hepatitis serologies negative. Other results including 24-hour urine protein quantitation pending. Objective Vital Signs and I&Os Vital Signs Date Time Temp Pulse Resp B/P B/P Pulse O2 O2 Flow FiO2 Mean Ox Delivery Rate 08/10 1400 98.5 62 20 164/80 95 08/10 0835 66 150/70 08/10 0835 66 150/70 08/10 0639 98.8 66 20 150/70 94 Room Air 08/10 0336 58 190/88 08/10 0041 61 190/88 08/09 2205 98.2 62 20 200/110 97 Room Air Intake & Output 08/10 1600 08/10 0400 08/09 1600 08/09 0400 08/08 1600 08/08 0400 Intake Total 880 740 120 Output Total 2775 1600 1100 1050 Balance -1895 -1600 -360 -930 Intake, IV 10 20 Intake, Oral 870 720 120 Number 1 Bowel Movements Output, Urine 2775 1600 1100 1050 Patient 327 lb 330 lb 320 lb Weight Weight Bed scale Bed scale Reported by Patient Measurement Method Physical Exam: General: Well-developed, obese, pleasant white male in NAD Skin: See "Extremities" below, no rash or jaundice HEENT: Conjunctivae pink, sclerae anicteric, mucous membranes moist Neck: Without masses or thyromegaly, no supraclavicular or cervical adenopathy Chest: Diminished breath sounds at bases Heart: Regular rate and rhythm without S3 or rub Abdomen: Obese, soft and nontender without palpable masses or organomegaly; no abdominal or flank bruits Extremities: 1+ edema to the knees bilaterally with hyperpigmented areas of stasis dermatitis/?previous cellulitis in both lower pretibial regions Neuro: Awake and alert, no focal findings, no asterixis or myoclonus Results Pertinent Lab Results: Laboratory Tests 08/10 08/10 08/10 1042 0828 0623 Chemistry Sodium Cancelled Potassium Cancelled Chloride Cancelled Carbon Dioxide Cancelled Anion Gap Cancelled BUN Cancelled Creatinine Cancelled BUN/Creatinine Ratio Cancelled Prot Electrophoresis Pending Total Protein (PEP) Pending Albumin % (PEP) Pending Nulpa-1-Sbcuegops Pending Ubmqs-5-Nasowgzoe Pending Ckuk-3-Fujuwgnm Pending Ehwa-6-Krvxcthc Pending Gamma Globulins Pending Abnorm Protein Band 1 Pending Abnorm Protein Band 2 Pending Abnorm Protein Band 3 Pending Immunology Complement C3 Pending Complement C4 Pending 08/10 08/10 0623 0202 Chemistry Sodium (137 - 145 mmol/L) 142 Potassium (3.5 - 5.1 mmol/L) 3.9 Chloride (98 - 107 mmol/L) 106 Carbon Dioxide (22 - 30 mmol/L) 23 Anion Gap (5 - 16) 13 BUN (9 - 20 mg/dL) 28 H Creatinine (0.7 - 1.2 mg/dL) 1.8 H Estimated GFR (>60 ml/min) 38 L BUN/Creatinine Ratio (7 - 25 %) 15.6 Phosphorus (2.5 - 4.5 mg/dL) 3.4 Magnesium (1.6 - 2.3 mg/dL) 2.0 Immunology DAVID Titer ND Anti-Nuclear Antibody (NEG,1:40) NEG 1:40 IFA ASSAY Serology Hepatitis A IgM Ab (NONREACTIVE) NONREACTIVE Hep Bs Antigen (NONREACTIVE) NONREACTIVE Hep B Core IgM Ab Conf (NONREACTIVE) NONREACTIVE Hepatitis C Antibody (NONREACTIVE) NONREACTIVE Urines Ur Random Creatinine Cancelled Urine Total Volume Cancelled Urine Creatinine Cancelled 08/09 08/08 0633 2230 Chemistry Sodium (137 - 145 mmol/L) 143 Potassium (3.5 - 5.1 mmol/L) 4.1 Chloride (98 - 107 mmol/L) 107 Carbon Dioxide (22 - 30 mmol/L) 24 Anion Gap (5 - 16) 12 BUN (9 - 20 mg/dL) 30 H Creatinine (0.7 - 1.2 mg/dL) 1.8 H Estimated GFR (>60 ml/min) 38 L BUN/Creatinine Ratio (7 - 25 %) 16.7 Troponin I (<0.11 ng/ml) 0.01 Hematology CBC w Diff NO MAN DIFF REQ WBC (4.8 - 10.8 /CUMM) 4.7 L RBC (4.70 - 6.10 /CUMM) 3.89 L Hgb (14.0 - 18.0 G/DL) 12.0 L Hct (42 - 52 %) 35.5 L MCV (80.0 - 94.0 FL) 91.2 MCH (27.0 - 31.0 PG) 30.9 MCHC (33.0 - 37.0 G/DL) 33.9 RDW (11.5 - 14.5 %) 15.0 H Plt Count (130 - 400 /CUMM) 163 MPV (7.4 - 10.4 FL) 8.9 Gran % (42.2 - 75.2 %) 49.1 Lymphocytes % (20.5 - 51.1 %) 32.8 Monocytes % (1.7 - 9.3 %) 8.0 Eosinophils % (0 - 5 %) 9.3 H Basophils % (0.0 - 2.0 %) 0.8 Absolute Granulocytes (1.4 - 6.5 /CUMM) 2.3 Absolute Lymphocytes (1.2 - 3.4 /CUMM) 1.5 Absolute Monocytes (0.10 - 0.60 /CUMM) 0.4 Absolute Eosinophils (0.0 - 0.7 /CUMM) 0.4 Absolute Basophils (0.0 - 0.2 /CUMM) 0 08/08 08/08 1711 1514 Chemistry Sodium (137 - 145 mmol/L) 147 H Potassium (3.5 - 5.1 mmol/L) 4.5 Chloride (98 - 107 mmol/L) 110 H Carbon Dioxide (22 - 30 mmol/L) 24 Anion Gap (5 - 16) 13 BUN (9 - 20 mg/dL) 30 H Creatinine (0.7 - 1.2 mg/dL) 2.0 H Estimated GFR (>60 ml/min) 34 L BUN/Creatinine Ratio (7 - 25 %) 15.0 Glucose (65 - 99 mg/dL) 92 Calcium (8.4 - 10.2 mg/dL) 9.2 Total Bilirubin (0.2 - 1.3 mg/dL) 0.7 AST (17 - 59 U/L) 21 ALT (21 - 72 U/L) 38 Alkaline Phosphatase (< 127 U/L) 118 Troponin I (<0.11 ng/ml) < 0.01 [id number]-[id number] Pept (<125 pg/mL) 1080 H Total Protein (6.3 - 8.2 g/dL) 6.7 Albumin (3.5 - 5.0 g/dL) 3.7 Globulin (1.9 - 4.2 gm/dL) 3.0 Albumin/Globulin Ratio (1.1 - 2.2 %) 1.2 Hematology CBC w Diff NO MAN DIFF REQ WBC (4.8 - 10.8 /CUMM) 6.0 RBC (4.70 - 6.10 /CUMM) 4.22 L Hgb (14.0 - 18.0 G/DL) 12.8 L Hct (42 - 52 %) 38.4 L MCV (80.0 - 94.0 FL) 91.0 MCH (27.0 - 31.0 PG) 30.3 MCHC (33.0 - 37.0 G/DL) 33.3 RDW (11.5 - 14.5 %) 15.2 H Plt Count (130 - 400 /CUMM) 183 MPV (7.4 - 10.4 FL) 8.7 Gran % (42.2 - 75.2 %) 61.0 Lymphocytes % (20.5 - 51.1 %) 25.7 Monocytes % (1.7 - 9.3 %) 7.4 Eosinophils % (0 - 5 %) 5.3 H Basophils % (0.0 - 2.0 %) 0.6 Absolute Granulocytes (1.4 - 6.5 /CUMM) 3.6 Absolute Lymphocytes (1.2 - 3.4 /CUMM) 1.5 Absolute Monocytes (0.10 - 0.60 /CUMM) 0.4 Absolute Eosinophils (0.0 - 0.7 /CUMM) 0.3 Absolute Basophils (0.0 - 0.2 /CUMM) 0 Urines Urine Color (YEL,AMB,STR) YEL Urine Clarity (CLEAR) CLEAR Urine pH (5.0 - 8.0) 6.0 Ur Specific Witten (1.001 - 1.035) 1.020 Urine Protein (NEG,<30 MG/DL) 100 H Urine Ketones (NEG) NEG Urine Nitrite (NEG) NEG Urine Bilirubin (NEG) NEG Urine Urobilinogen (0.1 - 1.0 EU/dl) 0.2 Ur Leukocyte Esterase (NEG) NEG Ur Microscopic SEDIMENT EXAMINED Urine RBC (0 - 5 /HPF) RARE Ur Epithelial Cells (NONE,FEW) RARE Urine Hemoglobin (NEG) NEG Urine Glucose (N MG/DL) NEG
--- NOTE | 2017-08-10 18:33 | PN- Cardiology ---
Subjective Subjective: * No chest discomfort or shortness of breath. * sinus rhythm * Patient was intolerant of CPAP Objective Vital Signs and I&Os Vital Signs Date Time Temp Pulse Resp B/P B/P Pulse O2 O2 Flow FiO2 Mean Ox Delivery Rate 08/10 1642 62 164/80 08/10 1641 62 164/80 08/10 1400 98.5 62 20 164/80 95 08/10 0835 66 150/70 08/10 0835 66 150/70 08/10 0639 98.8 66 20 150/70 94 Room Air 08/10 0336 58 190/88 08/10 0041 61 190/88 08/09 2205 98.2 62 20 200/110 97 Room Air Intake & Output 08/10 1600 08/10 0800 08/10 0000 08/09 1600 08/09 0800 08/09 0000 Intake Total 560 320 620 120 120 Output Total 2100 675 1600 582 453 4536 Balance -1540 -355 -1600 220 -580 -930 Intake, IV 10 20 Intake, Oral 550 320 600 120 120 Number 1 Bowel Movements Output, Urine 2100 675 1600 577 860 0097 Patient 327 lb 330 lb Weight Weight Bed scale Bed scale Measurement Method Physical Exam: General: WD/ obese male in NAD; alert and oriented x 3 Neck: no JVD, no carotid bruit Heart: RRR with 2/6 systolic murmur Lungs: clear bilaterally : severe scrotal edema Extremities: 2+ leg edema bilaterally Assessment/Plan Assessment/Plan * This patient has severe hypertension which has been treated with three medications that have a tendency to cause peripheral edema. I would avoid, to the extent we can, medications that are known to cause peripheral edema. He is on a large dose of hydralazine at 75mg TID which is reasonable if the patient will take it three times a day at home. Stop Minoxidil and Nifedipine since these drugs are both associated with peripheral edema. Conitnue Losartan if nephrology agrees that his renal function will tolerate it. Increase clonidine to 0.3mg/day. Stop Lasix and begin torsemide at 10mg IV daily with monitoring of his BUN, creatinine and potassium. He should be on a low sodium diet. If the above is not effective then we can consider adding Labetolol with careful monitoring of his heart rate. * He has not used his CPAP for a very long time and this has likely contributed to his hypertension. I would restart CPAP. The patient has evidence of a very thickened heart with diastolic dysfunction that is almost certainly related to his long-standing hypertension. Continue telemetry? Yes
[2017-08-10 22:08] VITALS: BP 194/90
[2017-08-10 23:17] VITALS: BP 182/84
[2017-08-11] VITALS (7 sets, daily range): BP systolic 158–210; BP diastolic 68–94
[2017-08-11 08:10] LABS: ABSOLUTE BASOPHIL COUNT 0 /CUMM (0.0-0.2); ABSOLUTE EOSINOPHIL COUNT 0.3 /CUMM (0.0-0.7); ABSOLUTE GRANULOCYTE CT 2.4 /CUMM (1.4-6.5); ABSOLUTE LYMPH COUNT 1.2 /CUMM (1.2-3.4); ABSOLUTE MONOCYTE COUNT 0.4 /CUMM (0.10-0.60); BASOPHIL % 0.8 % (0.0-2.0); GRANULOCYTE % 54.9 % (42.2-75.2); HEMATOCRIT 36.2 % (42-52); MEAN CORPUSCULAR HGB 30.3 PG (27.0-31.0); MEAN CORPUSCULAR HGB CONC 33.8 G/DL (33.0-37.0); MEAN CORPUSCULAR VOLUME 89.9 FL (80.0-94.0); MEAN PLATELET VOLUME 8.8 FL (7.4-10.4); PLATELET COUNT 151 /CUMM (130-400); RBC DISTRIBUTION WIDTH 14.5 % (11.5-14.5); RED BLOOD CELL CT 4.03 /CUMM (4.70-6.10); WHITE BLOOD CELL COUNT 4.4 /CUMM (4.8-10.8)
--- NOTE | 2017-08-11 09:16 | PN- Housestaff ---
Bakari MATOS,[facility] 08/11/17 0915: Subjective Follow-up For: CHF CKD HTN ?cellultiis b/l vs chronic venous stasis changes Subjective: No acute events overnight. Did not try cpap was it was not brought to him last night. No complaints. Slept ok. Overnight o2 monitoring lowest was 88%. Review of Systems Constitutional: Reports: see HPI. Objective Last 24 Hrs of Vital Signs/I&O Vital Signs Date Time Temp Pulse Resp B/P B/P Pulse O2 O2 Flow FiO2 Mean Ox Delivery Rate 08/11 1606 65 180/88 08/11 1604 67 180/88 08/11 1600 94 Room Air 08/11 1428 97.8 68 20 160/78 94 Room Air 08/11 0904 69 158/68 08/11 0902 69 158/68 08/11 0800 95 Room Air 08/11 0733 67 184/82 08/11 0646 98.2 60 20 210/94 95 Room Air 08/11 0615 62 210/94 08/11 0615 61 210/94 08/11 0116 63 188/90 08/10 2317 61 182/84 96 Room Air 08/10 2209 98.1 59 18 97 08/10 2208 61 194/90 08/10 2120 Room Air 08/10 2034 81 204/98 Intake & Output 08/11 1600 08/11 0800 08/11 0000 Intake Total 800 240 480 Output Total 1100 1375 2550 Balance -300 -1821 -2070 Intake, Oral 800 240 480 Number 0 2 Bowel Movements Output, Urine 1100 1375 2550 Patient 319 lb 319 lb Weight Physical Exam General Appearance: Alert, Oriented X3, Cooperative, No Acute Distress Skin: b/l anterior venous stasis changes Cardiovascular: Regular Rate, Normal S1, Normal S2 Lungs: Clear to Auscultation, Normal Air Movement Abdomen: Normal Bowel Sounds, Soft, No Tenderness Extremities: 2+ LE edema of LE Vascular: 2+ radial pulses Current Medications: Current Medications Sig/Jacque Start time Last Medication Dose Route Stop Time Status Admin Acetaminophen 650 MG Q6P PRN 08/08 1915 AC PO Aspirin 81 MG DAILY 08/09 1000 AC 08/11 PO 0904 Atorvastatin Calcium 20 MG 1700 08/09 1700 AC 08/10 PO 1641 Clonidine 3 PAT Q168 08/12 0600 DC TOP Clonidine 2 PAT Q168 08/12 0600 AC TOP Clonidine 1 PAT ONCE ONE 08/11 0030 DC 08/11 TOP 08/11 0031 0116 Clonidine 1 PAT Q168 08/10 1415 AC 08/10 TOP 08/12 0600 1642 Furosemide 80 MG 7:30 AM, & 4:30 PM 08/11 0730 AC 08/11 PO 0818 Furosemide 40 MG 7:30 AM, & 4:30 PM 08/09 0730 DC 08/10 IV 08/11 0000 1641 Heparin Sodium 5,000 UNIT Q8 08/08 2200 AC 08/11 (Porcine) SC 1416 Hydralazine HCl 100 MG TID 08/11 1600 AC 08/11 PO 1606 Hydralazine HCl 75 MG TID 08/10 1000 DC 08/11 PO 0615 Insulin Aspart 0 TIDAC 08/09 0800 AC 08/11 SC 1733 Insulin Detemir 18 UNITS DAILY 08/09 1000 AC 08/11 SC 0903 Losartan Potassium 50 MG Q12 08/12 1000 AC PO Losartan Potassium 100 MG DAILY 08/09 1000 DC 08/11 PO 0904 Nifedipine 90 MG DAILY 08/11 1000 DC 08/11 PO 0615 Potassium Chloride 40 MEQ ONCE ONE 08/11 1330 DC 08/11 PO 08/11 1331 1416 Last 24 Hrs of Lab/Jordin Results Last 24 Hrs of Labs/Mics: Laboratory Tests 08/11/17 0704: Anion Gap 11, Estimated GFR 38 L, BUN/Creatinine Ratio 14.4, CBC w Diff NO MAN DIFF REQ, RBC 4.03 L, MCV 89.9, MCH 30.3, MCHC 33.8, RDW 14.5, MPV 8.8, Gran % 54.9, Lymphocytes % 27.7, Monocytes % 9.6 H, Eosinophils % 7.0 H, Basophils % 0.8, Absolute Granulocytes 2.4, Absolute Lymphocytes 1.2, Absolute Monocytes 0.4 , Absolute Eosinophils 0.3, Absolute Basophils 0 Assessment/Plan Assessment: A: 61-year-old male with past medical history significant for HFPEF, osteomyelitis status post bilateral second toe amputation, diabetes, hyperlipidemia, venous insufficiency, JUVE noncompliant with CPAP who presented to ED with chief complaint of lower extremity swelling. Problem list #hypertensive urgency with hx of JUVE but non compliant on CPAP -dc nifedipine, minoxidil -torsemide not availible -increase hydralazine to 100mg tid, increased clonidine .2mg daily, cont losartan and lasix -called resp to help potentially restart cpap -Follow cards + nephrology recommendations blood pressure control in the setting of CKD -pt agreed to outpatient sleep study for possible new cpap mask #CHF/anasarca proBNP 1080 CXR suggestive of CHF Urine ran cr 26.5, Cr 1.6, Total 24hr protein 3986.5 -f/u DAVID, C3, C4, hepatitis serologies and serum immunoelectrophoresis -Continue monitoring ins and outs, daily weights -Continue Lasix as creatinine is stable -Follow cardiology recommendations #CKD Cr 1.8 -follow neprho recs #chronic venous stasis vs ?LE cellulitis no WBC aferbile -cont to monitor -cont wound care #diabetes -cont levemir, NovoLog sliding scale #chronic medical conditions: hld -cont atorvastatin -DVT prophylaxis heparin subcutaneous -Diet heart healthy -Code full Problem List: 1. CKD (chronic kidney disease) 2. Heart failure 3. Venous stasis 4. Hypertensive urgency Pain Ratin Pain Location: none Pain Goal: Pain 4 or less Pain Plan: pain pathway Tomorrow's Labs & Rationales: Donnell Denise 08/11/17 1429: Attending MD Review Statement Attending Statement Attending MD Statement: examined this patient, discuss w/resident/PA/COMMUNITY CASE MANAGER, agreed w/resident/PA/COMMUNITY CASE MANAGER, reviewed EMR data (avail), discussed with nursing, discussed with case mgmt Attending Assessment/Plan: D/w cardiology and renal Uncontrolled htn- will dc nifedipine secondary to peripheral edema. Will go up on clonidine patch to 0.3mg and will cont on lasix as iv torsemide not availbale. Will change losartan to 50mg po bid instead of 100 qd starting tomorrow if BP Stays high in am. Will increase hydralazine if needed. d/w pt the care plan. Pt will be scheduled for outpt sleep study. Overnight pulse oxymetry was ok.
--- NOTE | 2017-08-11 13:01 | PN- Nephrology ---
Assessment/Plan Nephrology Assessment: 1. CKD/CECY - improved and stable 2. CHF/volume overload - improved, still diuresing; element of nephrotic syndrome? 3. Hypertension - labile 4. Obstructive sleep apnea - not using CPAP Suggestion: 1. Increase hydralazine to 100 mg by mouth 3 times a day 2. Change losartan to 50 mg by mouth twice a day (with second dose at bedtime) Subjective Subjective: Patient continues to diurese, even on oral diuretic. Blood pressure remains high early in the morning. Lower extremity edema not significantly different over the past 2-3 days despite diuresis. Renal function remained stable at creatinine 1.8. Of note and somewhat surprising, 24-hour urine protein excretion approximately 4000 mg. SPEP/SIEP pending. Objective Vital Signs and I&Os Vital Signs Date Time Temp Pulse Resp B/P B/P Pulse O2 O2 Flow FiO2 Mean Ox Delivery Rate 08/11 0904 69 158/68 08/11 0902 69 158/68 08/11 0800 95 Room Air 08/11 0733 67 184/82 08/11 0646 98.2 60 20 210/94 95 Room Air 08/11 0615 62 210/94 08/11 0615 61 210/94 08/11 0116 63 188/90 08/10 2317 61 182/84 96 Room Air 08/10 2209 98.1 59 18 97 08/10 2208 61 194/90 08/10 2120 Room Air 08/10 2034 81 204/98 08/10 1642 62 164/80 08/10 1641 62 164/80 08/10 1400 98.5 62 20 164/80 95 Intake & Output 08/11 1600 08/11 0400 08/10 1600 08/10 0400 08/09 0400 Intake Total 240 480 880 740 120 Output Total 1375 2550 2775 1600 1100 1050 Balance -3796 -2070 -1895 -1600 -360 -930 Intake, IV 10 20 Intake, Oral 240 480 870 720 120 Number 0 2 1 Bowel Movements Output, Urine 1375 2550 2775 1600 1100 1050 Patient 319 lb 327 lb 330 lb Weight Weight Bed scale Bed scale Measurement Method Physical Exam: General: Well-developed, obese, pleasant white male in NAD Skin: See "Extremities" below, no rash or jaundice HEENT: Conjunctivae pink, sclerae anicteric, mucous membranes moist Neck: Without masses or thyromegaly, no supraclavicular or cervical adenopathy Chest: Diminished breath sounds at bases Heart: Regular rate and rhythm without S3 or rub Abdomen: Obese, soft and nontender without palpable masses or organomegaly; no abdominal or flank bruits Extremities: 1+ edema to the knees bilaterally with hyperpigmented areas of stasis dermatitis/?previous cellulitis in both lower pretibial regions Neuro: Awake and alert, no focal findings, no asterixis or myoclonus Results Pertinent Lab Results: Laboratory Tests 08/11 08/10 08/10 0704 1042 1030 Chemistry Sodium (137 - 145 mmol/L) 141 Potassium (3.5 - 5.1 mmol/L) 3.7 Chloride (98 - 107 mmol/L) 103 Carbon Dioxide (22 - 30 mmol/L) 27 Anion Gap (5 - 16) 11 BUN (9 - 20 mg/dL) 26 H Creatinine (0.7 - 1.2 mg/dL) 1.8 H Estimated GFR (>60 ml/min) 38 L BUN/Creatinine Ratio (7 - 25 %) 14.4 Prot Electrophoresis Pending Total Protein (PEP) Pending Albumin % (PEP) Pending [id number] Pending [id number] Pending Urcw-[id number]-Vrilfddo Pending [id number] Pending Gamma Globulins Pending Abnorm Protein Band 1 Pending Abnorm Protein Band 2 Pending Abnorm Protein Band 3 Pending Hematology CBC w Diff NO MAN DIFF REQ WBC (4.8 - 10.8 /CUMM) 4.4 L RBC (4.70 - 6.10 /CUMM) 4.03 L Hgb (14.0 - 18.0 G/DL) 12.2 L Hct (42 - 52 %) 36.2 L MCV (80.0 - 94.0 FL) 89.9 MCH (27.0 - 31.0 PG) 30.3 MCHC (33.0 - 37.0 G/DL) 33.8 RDW (11.5 - 14.5 %) 14.5 Plt Count (130 - 400 /CUMM) 151 MPV (7.4 - 10.4 FL) 8.8 Gran % (42.2 - 75.2 %) 54.9 Lymphocytes % (20.5 - 51.1 %) 27.7 Monocytes % (1.7 - 9.3 %) 9.6 H Eosinophils % (0 - 5 %) 7.0 H Basophils % (0.0 - 2.0 %) 0.8 Absolute Granulocytes (1.4 - 6.5 /CUMM) 2.4 Absolute Lymphocytes (1.2 - 3.4 /CUMM) 1.2 Absolute Monocytes (0.10 - 0.60 /CUMM) 0.4 Absolute Eosinophils (0.0 - 0.7 /CUMM) 0.3 Absolute Basophils (0.0 - 0.2 /CUMM) 0 Urines Ur Random Creatinine (mg/dL) 26.5 Urine Total Volume (600 - 1500 ML/24HR) 5950 H Urine Creatinine (1.0 - 2.0 g/24HR) 1.6 Ur Total Protein 24 Hr (42 - 255 mg/24HR) 3986.5 H 08/10 08/10 08/10 0828 0623 0623 Chemistry Sodium (137 - 145 mmol/L) Cancelled 142 Potassium (3.5 - 5.1 mmol/L) Cancelled 3.9 Chloride (98 - 107 mmol/L) Cancelled 106 Carbon Dioxide (22 - 30 mmol/L) Cancelled 23 Anion Gap (5 - 16) Cancelled 13 BUN (9 - 20 mg/dL) Cancelled 28 H Creatinine (0.7 - 1.2 mg/dL) Cancelled 1.8 H Estimated GFR (>60 ml/min) 38 L BUN/Creatinine Ratio (7 - 25 %) Cancelled 15.6 Phosphorus (2.5 - 4.5 mg/dL) 3.4 Magnesium (1.6 - 2.3 mg/dL) 2.0 Immunology DAVID Titer ND Anti-Nuclear Antibody (NEG,1:40) NEG 1:40 IFA ASSAY Complement C3 Pending Complement C4 Pending Serology Hepatitis A IgM Ab (NONREACTIVE) NONREACTIVE Hep Bs Antigen (NONREACTIVE) NONREACTIVE Hep B Core IgM Ab Conf (NONREACTIVE) NONREACTIVE Hepatitis C Antibody (NONREACTIVE) NONREACTIVE 08/10 08/09 08/08 0202 0633 2230 Chemistry Sodium (137 - 145 mmol/L) 143 Potassium (3.5 - 5.1 mmol/L) 4.1 Chloride (98 - 107 mmol/L) 107 Carbon Dioxide (22 - 30 mmol/L) 24 Anion Gap (5 - 16) 12 BUN (9 - 20 mg/dL) 30 H Creatinine (0.7 - 1.2 mg/dL) 1.8 H Estimated GFR (>60 ml/min) 38 L BUN/Creatinine Ratio (7 - 25 %) 16.7 Troponin I (<0.11 ng/ml) 0.01 Hematology CBC w Diff NO MAN DIFF REQ WBC (4.8 - 10.8 /CUMM) 4.7 L RBC (4.70 - 6.10 /CUMM) 3.89 L Hgb (14.0 - 18.0 G/DL) 12.0 L Hct (42 - 52 %) 35.5 L MCV (80.0 - 94.0 FL) 91.2 MCH (27.0 - 31.0 PG) 30.9 MCHC (33.0 - 37.0 G/DL) 33.9 RDW (11.5 - 14.5 %) 15.0 H Plt Count (130 - 400 /CUMM) 163 MPV (7.4 - 10.4 FL) 8.9 Gran % (42.2 - 75.2 %) 49.1 Lymphocytes % (20.5 - 51.1 %) 32.8 Monocytes % (1.7 - 9.3 %) 8.0 Eosinophils % (0 - 5 %) 9.3 H Basophils % (0.0 - 2.0 %) 0.8 Absolute Granulocytes (1.4 - 6.5 /CUMM) 2.3 Absolute Lymphocytes (1.2 - 3.4 /CUMM) 1.5 Absolute Monocytes (0.10 - 0.60 /CUMM) 0.4 Absolute Eosinophils (0.0 - 0.7 /CUMM) 0.4 Absolute Basophils (0.0 - 0.2 /CUMM) 0 Urines Ur Random Creatinine Cancelled Urine Total Volume Cancelled Urine Creatinine Cancelled 08/08 08/08 1711 1514 Chemistry Sodium (137 - 145 mmol/L) 147 H Potassium (3.5 - 5.1 mmol/L) 4.5 Chloride (98 - 107 mmol/L) 110 H Carbon Dioxide (22 - 30 mmol/L) 24 Anion Gap (5 - 16) 13 BUN (9 - 20 mg/dL) 30 H Creatinine (0.7 - 1.2 mg/dL) 2.0 H Estimated GFR (>60 ml/min) 34 L BUN/Creatinine Ratio (7 - 25 %) 15.0 Glucose (65 - 99 mg/dL) 92 Calcium (8.4 - 10.2 mg/dL) 9.2 Total Bilirubin (0.2 - 1.3 mg/dL) 0.7 AST (17 - 59 U/L) 21 ALT (21 - 72 U/L) 38 Alkaline Phosphatase (< 127 U/L) 118 Troponin I (<0.11 ng/ml) < 0.01 Nyb-U-Yimgrceuhuj Pept (<125 pg/mL) 1080 H Total Protein (6.3 - 8.2 g/dL) 6.7 Albumin (3.5 - 5.0 g/dL) 3.7 Globulin (1.9 - 4.2 gm/dL) 3.0 Albumin/Globulin Ratio (1.1 - 2.2 %) 1.2 Hematology CBC w Diff NO MAN DIFF REQ WBC (4.8 - 10.8 /CUMM) 6.0 RBC (4.70 - 6.10 /CUMM) 4.22 L Hgb (14.0 - 18.0 G/DL) 12.8 L Hct (42 - 52 %) 38.4 L MCV (80.0 - 94.0 FL) 91.0 MCH (27.0 - 31.0 PG) 30.3 MCHC (33.0 - 37.0 G/DL) 33.3 RDW (11.5 - 14.5 %) 15.2 H Plt Count (130 - 400 /CUMM) 183 MPV (7.4 - 10.4 FL) 8.7 Gran % (42.2 - 75.2 %) 61.0 Lymphocytes % (20.5 - 51.1 %) 25.7 Monocytes % (1.7 - 9.3 %) 7.4 Eosinophils % (0 - 5 %) 5.3 H Basophils % (0.0 - 2.0 %) 0.6 Absolute Granulocytes (1.4 - 6.5 /CUMM) 3.6 Absolute Lymphocytes (1.2 - 3.4 /CUMM) 1.5 Absolute Monocytes (0.10 - 0.60 /CUMM) 0.4 Absolute Eosinophils (0.0 - 0.7 /CUMM) 0.3 Absolute Basophils (0.0 - 0.2 /CUMM) 0 Urines Urine Color (YEL,AMB,STR) YEL Urine Clarity (CLEAR) CLEAR Urine pH (5.0 - 8.0) 6.0 Ur Specific [place] (1.001 - 1.035) 1.020 Urine Protein (NEG,<30 MG/DL) 100 H Urine Ketones (NEG) NEG Urine Nitrite (NEG) NEG Urine Bilirubin (NEG) NEG Urine Urobilinogen (0.1 - 1.0 EU/dl) 0.2 Ur Leukocyte Esterase (NEG) NEG Ur Microscopic SEDIMENT EXAMINED Urine RBC (0 - 5 /HPF) RARE Ur Epithelial Cells (NONE,FEW) RARE Urine Hemoglobin (NEG) NEG Urine Glucose (N MG/DL) NEG
--- NOTE | 2017-08-11 17:16 | PN- Cardiology ---
Subjective Subjective: * Patient feels well. * BP is improved but not consistently so. * Patient continues to have edema. * creatinine 1.8 * Urinary protein is almost 4000 Objective Vital Signs and I&Os Vital Signs Date Time Temp Pulse Resp B/P B/P Pulse O2 O2 Flow FiO2 Mean Ox Delivery Rate 08/11 1606 65 180/88 08/11 1604 67 180/88 08/11 1428 97.8 68 20 160/78 94 Room Air 08/11 0904 69 158/68 08/11 0902 69 158/68 08/11 0800 95 Room Air 08/11 0733 67 184/82 08/11 0646 98.2 60 20 210/94 95 Room Air 08/11 0615 62 210/94 08/11 0615 61 210/94 08/11 0116 63 188/90 08/10 2317 61 182/84 96 Room Air 08/10 2209 98.1 59 18 97 08/10 2208 61 194/90 08/10 2120 Room Air 08/10 2034 81 204/98 Intake & Output 08/11 1600 08/11 0800 08/11 0000 08/10 1600 08/10 0800 08/10 0000 Intake Total 800 240 480 560 320 Output Total 1100 1375 2550 2100 675 1600 Balance -300 -1135 -2070 -1540 -355 -1600 Intake, IV 10 Intake, Oral 800 240 480 550 320 Number 0 2 Bowel Movements Output, Urine 1100 1375 2550 2100 675 1600 Patient 319 lb 319 lb 327 lb Weight Weight Bed scale Measurement Method Physical Exam: General: WD/ obese male in NAD; alert and oriented x 3 Neck: no JVD, no carotid bruit Heart: RRR with 2/6 systolic murmur Lungs: clear bilaterally : severe scrotal edema Extremities: 2+ leg edema bilaterally Assessment/Plan Assessment/Plan * No change in edema which is the symptom the patient presented for. I would consider a change in current management. Change to an IV loop diuretic. Torsemide can be more effective as it has a longer duration of action and does not accumulate in renal failure. Begin with 10mg IV and increase to 20mg IV as needed for adequate response. Otherwise higher doses of Lasix can be tried intravenously. Higher than 80 would typically be given slowly or as a drip to prevent ototoxicity. Minimize any medications noted for causing peripheral edema , if possible. Check a lipid profile. This patient may well have nephrotic syndrome as noted by Dr. Avina and should continue on an ARB. * Agree with maximizing hydralazine. If the above is not effective then we can consider adding Labetolol with careful monitoring of his heart rate. * He has not used his CPAP for a very long time and this has likely contributed to his hypertension. I would restart CPAP. The patient has evidence of a very thickened heart with diastolic dysfunction that is almost certainly related to his long-standing hypertension. Continue telemetry? Yes
[2017-08-12] VITALS (7 sets, daily range): BP systolic 120–200; BP diastolic 80–98
--- NOTE | 2017-08-12 07:27 | PN- Housestaff ---
Bakari MATOS,[facility] 08/12/17 0727: Subjective Follow-up For: CHF CKD HTN ?cellultiis b/l vs chronic venous stasis changes Tele-Events Since Last Visit: Respirations/NSR/first-degree AV block 5769 QRS 0.1 ND 0.28 Subjective: No acute events overnight. Patient states that he has some nausea history. Is having some nausea this morning and vomited. States he feels better after the vomiting. Review of Systems Constitutional: Reports: see HPI. Objective Last 24 Hrs of Vital Signs/I&O Vital Signs Date Time Temp Pulse Resp B/P B/P Pulse O2 O2 Flow FiO2 Mean Ox Delivery Rate 08/12 1028 54 160/68 08/12 1020 54 160/68 08/12 1018 54 160/68 08/12 0735 180/94 08/12 0650 99.0 64 20 120/80 96 Room Air 08/11 2339 98.3 68 18 178/90 95 Room Air 08/11 2048 72 180/84 08/11 1910 64 176/82 08/11 1606 65 180/88 08/11 1604 67 180/88 08/11 1600 94 Room Air 08/11 1428 97.8 68 20 160/78 94 Room Air Intake & Output 08/12 1600 08/12 0800 08/12 0000 Intake Total 320 600 Output Total 1300 Balance -980 600 Intake, Oral 320 600 Output, Urine 1300 Patient 300 lb Weight Physical Exam General Appearance: Alert, Oriented X3, Cooperative Skin: anterior chronic venous stasis changes of bilateral lower extremities Cardiovascular: Regular Rate, Normal S1, Normal S2 Lungs: Clear to Auscultation, Normal Air Movement Abdomen: Normal Bowel Sounds, Soft, No Tenderness Extremities: swelling of all extremities bilaterally no pitting edema Vascular: 2+ radial and pedal pulses bilaterally Current Medications: Current Medications Sig/Jacque Start time Last Medication Dose Route Stop Time Status Admin Acetaminophen 650 MG Q6P PRN 08/08 1915 AC PO Aspirin 81 MG DAILY 08/09 1000 AC 08/12 PO 1019 Atorvastatin Calcium 20 MG 1700 08/09 1700 AC 08/11 PO 1835 Clonidine 3 PAT Q168 08/12 1000 CAN TOP Clonidine 2 PAT Q168 08/12 1000 CAN TOP Clonidine 3 PAT ONCE A WEEK 08/12 1000 AC 08/12 TOP 1028 Clonidine 3 PAT Q168 08/12 0600 DC TOP Clonidine 2 PAT Q168 08/12 0600 DC TOP Clonidine 1 PAT Q168 08/10 1415 DC 08/10 TOP 08/12 0600 1642 Famotidine 20 MG BID 08/12 1046 AC 08/12 PO 1201 Furosemide 80 MG 7:30 AM, & 4:30 PM 08/11 0730 AC 08/12 PO 0743 Heparin Sodium 5,000 UNIT Q8 08/08 2200 AC 08/12 (Porcine) SC 0609 Hydralazine HCl 100 MG TID 08/11 1600 AC 08/12 PO 1018 Hydralazine HCl 75 MG TID 08/10 1000 DC 08/11 PO 0615 Insulin Aspart 0 TIDAC 08/12 1200 AC 08/12 SC 1200 Insulin Aspart 0 TIDAC 08/09 0800 DC 08/11 SC 1733 Insulin Detemir 18 UNITS DAILY 08/09 1000 AC 08/12 SC 1022 Losartan Potassium 50 MG Q12 08/12 1000 AC 08/12 PO 1020 Losartan Potassium 100 MG DAILY 08/09 1000 DC 08/11 PO 0904 Potassium Chloride 40 MEQ ONCE ONE 08/11 1330 DC 08/11 PO 08/11 1331 1416 Trimethobenzamide HCl 200 MG ONCE PRN 08/12 0800 AC IM Last 24 Hrs of Lab/Jordin Results Last 24 Hrs of Labs/Mics: Laboratory Tests 08/12/17 0728: Anion Gap 12, Estimated GFR 38 L, BUN/Creatinine Ratio 15.6 Assessment/Plan Assessment: A: 61-year-old male with past medical history significant for HFPEF, osteomyelitis status post bilateral second toe amputation, diabetes, hyperlipidemia, venous insufficiency, JUVE noncompliant with CPAP who presented to ED with chief complaint of lower extremity swelling. Problem list #hypertensive urgency with hx of JUVE but non compliant on CPAP -dc'ed nifedipine, minoxidil -torsemide IV not availible -Continue hydralazine 100mg tid, increased clonidine .3mg daily, cont losartan and lasix -fluid restriction 1500 -called resp to help potentially restart cpap -Follow cards + nephrology recommendations blood pressure control in the setting of CKD -pt agreed to outpatient sleep study for possible new cpap mask #CHF/anasarca proBNP 1080 CXR suggestive of CHF Urine ran cr 26.5, Cr 1.6, Total 24hr protein 3986.5 Hepatitis panel, DAVID, ANCA, C3, C4 normal Spep unremarkable -encourage protein supplmentaion -Continue monitoring ins and outs, daily weights -Continue Lasix as creatinine is stable -Follow cardiology recommendations #CKD Cr 1.8 -follow neprho recs #chronic venous stasis vs ?LE cellulitis no WBC aferbile -cont to monitor -cont wound care #[place] -Start famotidine for possible GERD/dyspepsia -tigan prn #diabetes -cont levemir, NovoLog sliding scale #chronic medical conditions: hld -cont atorvastatin -DVT prophylaxis heparin subcutaneous -Diet heart healthy -Code full Problem List: 1. CKD (chronic kidney disease) 2. Heart failure 3. Venous stasis 4. Hypertensive urgency Pain Ratin Pain Location: none Pain Goal: Pain 4 or less Pain Plan: pain pathway Tomorrow's Labs & Rationales: Donnell Denise 08/12/17 1536: Attending MD Review Statement Attending Statement Attending MD Statement: examined this patient, discuss w/resident/PA/MATERIAL MIXER, agreed w/resident/PA/MATERIAL MIXER, reviewed EMR data (avail), discussed with nursing, discussed with case mgmt Attending Assessment/Plan: Nephrotic syndrome with proteinuria - likely secondary to his long stanidng HTN, DAVID and complement levels normal. SPEP- normal. Started on protein supplementation. Started on fluid restriction at 1500cc/day. Uncontrolled htn- increased clonidine to 0.3mg patch. Nausea and vomiting- prn nausea meds. Started on pepcid. JUVE - will arrange for cpap new machine Possible dc tomorrow to home if stable.
--- NOTE | 2017-08-12 19:28 | PN- Cardiology ---
Subjective Subjective: * No complaints of shortness of breath. * Swelling is a bit better. Now on a fluid restriction. * creatinine stable at 1.8 Objective Vital Signs and I&Os Vital Signs Date Time Temp Pulse Resp B/P B/P Pulse O2 O2 Flow FiO2 Mean Ox Delivery Rate 08/12 1837 50 170/88 08/12 1741 53 200/88 08/12 1600 97 Room Air 08/12 1544 52 196/88 08/12 1455 98.1 57 20 196/88 97 Room Air 08/12 1028 54 160/68 08/12 1020 54 160/68 08/12 1018 54 160/68 08/12 0735 180/94 08/12 0650 99.0 64 20 120/80 96 Room Air 08/11 2339 98.3 68 18 178/90 95 Room Air 08/11 2048 72 180/84 Intake & Output 08/12 1600 08/12 0800 08/12 0000 08/11 1600 08/11 0800 08/11 0000 Intake Total 1020 320 600 800 240 480 Output Total 1300 1100 1375 2550 Balance 1020 -980 600 -300 -1135 -2070 Intake, Oral 1020 320 600 800 240 480 Number 1 0 2 Bowel Movements Output, Urine 1300 1100 1375 2550 Patient 300 lb 319 lb 319 lb Weight Physical Exam: General: WD/ obese male in NAD; alert and oriented x 3 Neck: no JVD, no carotid bruit Heart: RRR with 2/6 systolic murmur Lungs: clear bilaterally : severe scrotal edema Extremities: 2+ leg edema bilaterally Assessment/Plan Assessment/Plan * Mild improvement in edema. Consider change to IV Lasix. Minimize any medications noted for causing peripheral edema, if possible. Check a lipid profile. This patient may well have nephrotic syndrome as noted by Dr. Avina and should continue on an ARB. * Agree with maximizing hydralazine. Begin Labetolol 100mg PO BID. * He has not used his CPAP for a very long time and this has likely contributed to his hypertension. I would restart CPAP. The patient has evidence of a very thickened heart with diastolic dysfunction that is almost certainly related to his long-standing hypertension. Continue telemetry? Yes
[2017-08-13 06:00] VITALS: BP 188/102
[2017-08-13 07:09] VITALS: BP 170/90
--- NOTE | 2017-08-13 08:08 | PN- Housestaff ---
Bakari MATOS,[facility] 08/13/17 0808: Subjective Follow-up For: CHF CKD HTN LE edema ?cellultiis b/l vs chronic venous stasis changes Tele-Events Since Last Visit: SB/1st degree AVB HR 50-63 QRS .10 VT .30 Subjective: No acute events overnight. States edema has improved. States his scrotum size and LE edema are almost at baseline. Review of Systems Constitutional: Reports: see HPI. Objective Last 24 Hrs of Vital Signs/I&O Vital Signs Date Time Temp Pulse Resp B/P B/P Pulse O2 O2 Flow FiO2 Mean Ox Delivery Rate 08/13 1431 98.8 58 18 164/68 95 08/13 0709 170/90 08/13 0600 98.9 57 18 188/102 94 08/13 0558 55 180/102 08/12 2347 160/88 08/12 2232 99.2 49 16 182/98 95 Room Air 08/12 2137 52 182/98 08/12 2132 50 182/98 08/12 1837 50 170/88 08/12 1741 53 200/88 Intake & Output 08/13 1600 08/13 0800 08/13 0000 Intake Total 1191 60 300 Output Total 560 1000 500 Balance 631 -940 -200 Intake, Oral 1191 60 300 Number 1 1 Bowel Movements Output, Urine 560 1000 500 Patient 300 lb Weight Physical Exam General Appearance: Alert, Oriented X3, Cooperative Skin: b/l anterior LE chronic venous stasis changes Cardiovascular: Regular Rate, Normal S1, Normal S2 Lungs: Clear to Auscultation, Normal Air Movement Abdomen: Normal Bowel Sounds, Soft, No Tenderness Extremities: trace LE edema, scrotal edema Vascular: 2+ radial pulses Current Medications: Current Medications Sig/Jacque Start time Last Medication Dose Route Stop Time Status Admin Acetaminophen 650 MG Q6P PRN 08/08 1915 AC PO Aspirin 81 MG DAILY 08/09 1000 AC 08/13 PO 0912 Atorvastatin Calcium 20 MG 1700 08/09 1700 AC 08/12 PO 1715 Clonidine 3 PAT ONCE A WEEK 08/12 1000 AC 08/12 TOP 1028 Famotidine 20 MG BID 08/12 1046 AC 08/13 PO 0857 Furosemide 80 MG 7:30 AM, & 4:30 PM 08/11 0730 DC 08/13 PO 0824 Heparin Sodium 5,000 UNIT Q8 08/08 2200 AC 08/13 (Porcine) SC 1432 Hydralazine HCl 100 MG TID 08/11 1600 AC 08/13 PO 0558 Insulin Aspart 0 TIDAC 08/12 1200 AC 08/13 SC 1236 Insulin Detemir 18 UNITS DAILY 08/09 1000 AC 08/13 SC 1028 Losartan Potassium 50 MG Q12 08/12 1000 AC 08/13 PO 0912 Magnesium Oxide 400 MG 30 08/13 0930 DC 08/13 PO 08/13 0931 1118 Patient Medication 1 ED ONE ONE 08/13 1230 DC Teaching ED 08/13 1231 Potassium Chloride 40 MEQ DAILY 08/13 1000 AC 08/13 PO 1119 Potassium Chloride 40 MEQ BID 08/13 1000 CAN PO 08/13 2201 Potassium Chloride 40 MEQ ONCE ONE 08/13 0845 DC 08/13 PO 08/13 0846 1029 Spironolactone 25 MG DAILY 08/13 1530 AC PO Torsemide 20 MG 7:30 AM, & 4:30 PM 08/13 1630 AC PO Trimethobenzamide HCl 200 MG ONCE PRN 08/12 0800 AC IM Last 24 Hrs of Lab/Jordin Results Last 24 Hrs of Labs/Mics: Laboratory Tests 08/13/17 0617: Anion Gap 13, Estimated GFR 36 L, BUN/Creatinine Ratio 17.4, Magnesium 1.8, Triglycerides 90, Cholesterol 108, LDL Cholesterol, Calc 48 L, HDL Cholesterol 42, Cholesterol/HDL Ratio 3, TSH Pending, Free T4 1.57 Assessment/Plan Assessment: A: 61-year-old male with past medical history significant for HFPEF, osteomyelitis status post bilateral second toe amputation, diabetes, hyperlipidemia, venous insufficiency, JUVE noncompliant with CPAP who presented to ED with chief complaint of lower extremity swelling. Problem list #hypertensive urgency with hx of JUVE but non compliant on CPAP -f/u abg @ 10pm to check for bicarb retention from obesity hypoventilation -f/u overnight pulse ox by respiratory -f/u tsh/free t4 -dc'ed nifedipine, minoxidil -switch from po lasix to po torsemide 20mg BID -add david 25mg per cards + nephro -Continue hydralazine 100mg tid, clonidine .3mg daily, cont losartan -fluid restriction 1500 -called resp to help potentially restart cpap -Follow cards + nephrology recommendations blood pressure control in the setting of CKD -pt agreed to outpatient sleep study for possible new cpap mask #CHF/anasarca due to ?nephrotic syndrome proBNP 1080 CXR suggestive of CHF Urine ran cr 26.5, Cr 1.6, Total 24hr protein 3986.5 Hepatitis panel, DAVID, ANCA, C3, C4 normal Spep unremarkable Lipid panel normal -f/u dietary consult/encourage protein supplmentaion with ensure -Continue monitoring ins and outs, daily weights -Continue Lasix as creatinine is stable -Follow cardiology recommendations #CKD Cr 1.9 -follow neprho recs #chronic venous stasis vs ?LE cellulitis no WBC aferbile -cont to monitor -cont wound care #[place] -Start famotidine for possible GERD/dyspepsia -tigan prn #diabetes -cont levemir, NovoLog sliding scale #chronic medical conditions: hld -cont atorvastatin -DVT prophylaxis heparin subcutaneous -Diet heart healthy -Code full Problem List: 1. HTN (hypertension) 2. CKD (chronic kidney disease) 3. Heart failure 4. Venous stasis Pain Ratin Pain Location: none Pain Goal: Pain 4 or less Pain Plan: pain pathway Tomorrow's Labs & Rationales: bep Donnell Mckeon 08/13/17 1119: Attending MD Review Statement Attending Statement Attending MD Statement: examined this patient, discuss w/resident/PA/HAND TUBE BENDER, agreed w/resident/PA/HAND TUBE BENDER, reviewed EMR data (avail), discussed with nursing, discussed with case mgmt Attending Assessment/Plan: Nephrotic syndrome with proteinuria - likely secondary to his long stanidng HTN and DM, DAVID and complement levels normal. SPEP- normal. Started on protein supplementation. Started on fluid restriction at 1500cc/day. Will f/u on renal recommendations. pitting edema much less today and pt thinks that his leg swelling is much better too. Lipid profile ok. Uncontrolled htn- still running high. Will f/u on renal recommendations. His cr and Bun are slightly up. will f/u on recheck in am. Will talk to cardio to see if we need to cont him on telemetery. Nausea and vomiting- Better today. prn nausea meds. Started on pepcid. Pulmonary consult today to see if they will suggest anything for his JUVE and start him on Autopap awaiting official sleep study to be done as an outpatient.
--- NOTE | 2017-08-13 14:30 | PN- Cardiology ---
Subjective Subjective: * No complaints. * sinus rhythm with occasional mild and asymptomatic bradycardia * decreased potassium of 3.4 * creatinine 1.9 Objective Vital Signs and I&Os Vital Signs Date Time Temp Pulse Resp B/P B/P Pulse O2 O2 Flow FiO2 Mean Ox Delivery Rate 08/13 0709 170/90 08/13 0600 98.9 57 18 188/102 94 08/13 0558 55 180/102 08/12 2347 160/88 08/12 2232 99.2 49 16 182/98 95 Room Air 08/12 2137 52 182/98 08/12 2132 50 182/98 08/12 1837 50 170/88 08/12 1741 53 200/88 08/12 1600 97 Room Air 08/12 1544 52 196/88 08/12 1455 98.1 57 20 19688 97 Room Air Intake & Output 08/13 1600 08/13 0800 08/13 0000 08/12 1600 08/12 0800 08/12 0000 Intake Total 60 300 1020 320 600 Output Total 9566 597 1361 Balance -940 -200 1020 -980 600 Intake, Oral 60 300 1020 320 600 Number 1 1 Bowel Movements Output, Urine 1487 302 9761 Patient 300 lb 300 lb Weight Physical Exam: General: WD/ obese male in NAD; alert and oriented x 3 Neck: no JVD, no carotid bruit Heart: RRR with 2/6 systolic murmur Lungs: clear bilaterally : severe scrotal edema Extremities: 2+ leg edema bilaterally Assessment/Plan Assessment/Plan * Mild improvement in edema since admission but still significant scrotal and leg edema with poorly controlled BP. Consider change to IV Lasix. Ideally patient's with refractory hypertension should be on chlorthalidone or, if significant swelling in the setting of renal insufficiency, should be on a loop diuretic such as torsedmide. Consider oral torsedmide if available from the pharmacy. Otherwise I would stop the fluid restriction and continue Lasix. Continue to minimize any medications noted for causing peripheral edema, if possible. This patient may well have nephrotic syndrome as noted by Dr. Avina and should continue on an ARB. In addition to protein in his urine he did have a low serum albumen although it is better now. His triglycerides are normal so he does not seem to meet the criteria for nephrotic syndrome at the present time. * Continue Labetolol 100mg PO BID and monitor for significant bradycardia. He has some mild asymptomatic bradycardia at the present time which is not unusual considering the combination of clonidine and beta jose. We will continue these medications unless significant bradycardia or heart block. I would not increase the Labetolol however. * He has not used his CPAP for a very long time and this has likely contributed to his hypertension. In the setting of refractory hypertension there is likely an underlying stimulus to the persistent hypertension and epinephrine release from sleep apnea is a well documented potential cause. I would restart CPAP. The patient has evidence of a very thickened heart with diastolic dysfunction that is almost certainly related to his long-standing hypertension. A workup for MAMADOU, hyperaldosteronism and pheochromocytoma has been done. * In consideration of his refractory hypertension and hypokalemia he should be started on spironolactone 25mg daily. * Continue a low sodium diet. Continue telemetry? Yes
[2017-08-13 14:31] VITALS: BP 164/68
--- NOTE | 2017-08-13 18:38 | Cons- Pulmonary ---
General Information and HPI Consulting Request Date of Consult: 08/13/17 Requested By: Med team History of Present Illness: Mr. Miramontes 61-year-old male with past medical history significant for HFPEF, osteomyelitis status post bilateral second toe amputation, diabetes, hyperlipidemia, venous insufficiency, JUVE noncompliant with CPAP who presented to ED with chief complaint of lower extremity swelling. Patient was recently discharged July 06, 2017 after treated for hypoglycemia and bradycardia along with persistent hypertension. He is a previous history of severe bronchiolitis after exposure to noxious substance at work many years ago. Subsequently he did have a good recovery. He does have morbid obesity with some signs and symptoms suggestive of sleep apnea. And he hasn't had this sleep study done 20 years ago and the consult is now requested to rule out sleep apnea. Patient supposed to have overnight nocturnal oxymetry to be done tonight EENTM: Denies: blurred vision, double vision. Cardiovascular: Reports: peripheral edema. Denies: chest pain, orthopena, palpitations, syncope. Respiratory: Denies: cough, hemoptysis, orthopnea, short of breath, sputum production, stridor, wheezing. GI: Reports: distention. Denies: abdominal pain, constipation, diarrhea, bowel incontinence, melena, nausea, bloody stool, changes in stool, vomiting, steatorrhea. Genitourinary: Denies: dysuria, frequency, hematuria, hesitation. Musculoskeletal: Denies: joint pain, joint swelling. Skin: Denies: rash. Neurological/Psychological: Denies: confusion, headache, numbness. Hematologic/Endocrine: Denies: bleeding. Allergies/Medications Allergies: Coded Allergies: NO KNOWN ALLERGIES (11/19/13) Home Med List: Aspirin (Children's Aspirin) 81 MG TAB.CHEW 1 TAB PO DAILY HEART HEALTH ( Reported) Cholecalciferol (Vitamin D3) (Vitamin D3) 2,000 UNIT TABLET 1 TAB PO DAILY VITAMIN SUPPORT (Reported) Clonidine Tts-1 (Catapres-Tts 1) 0.1 MG/24 HOUR PATCH.TDWK 1 PAT TOP Q168 HTN . Furosemide (Lasix) 40 MG TABLET 1 TAB PO DAILY HEART (Reported) Hydralazine HCl 50 MG TABLET 1.5 TAB PO BID HTN . Insulin Aspart (Novolog) 100 UNIT/ML VIAL 0 SC TIDAC DIABETES 80-150 4 UNITS 151-200 5 UNITS 201-250 6 UNITS 251-300 8 UNITS 301-350 9 UNITS 350-400 10 UNITS > 400 12 UNITS Insulin Degludec (Tresiba Flextouch U-100) 100 UNIT/ML (3 ML) INSULN.PEN 20 UNITS SC QAM DIABETES (Reported) Minoxidil 10 MG TABLET 0.5 TAB PO DAILY Hypertension . Nifedipine (Procardia XL) 90 MG TAB.ER.24 1 TAB PO DAILY HTN . Potassium Chloride (Klor-Con M20) 20 MEQ TAB.ER.PRT 1 TAB PO DAILY LOW POTASSIUM Simvastatin (Simvastatin*) 40 MG TABLET 1 TAB PO DAILY CHOLESTEROL (Reported) Valsartan 320 MG TABLET 1 TAB PO DAILY HTN . Review of Systems Review of Systems Constitutional: Reports: see HPI. Past History Travel History Traveled to [place] past 21 day No Medical History Neurological: NONE EENT: NONE Cardiovascular: CHF, hypertension, hyperlipidemia Respiratory: obstructive sleep apnea, pneumonia Gastrointestinal: NONE Hepatic: NONE Renal: NONE Musculoskeletal: osteomyelitis Psychiatric: NONE Endocrine: diabetes Blood Disorders: NONE Cancer(s): NONE JIG HAND/Reproductive: NONE Surgical History Surgical History: left hip surgery left toe amputation for osteomyelitis left toe amputation Family History Relations & Conditions If Any: FATHER (diabetes and of stomach cancer). FH: diabetes mellitus MOTHER (CVA and MS at age 60). Psychosocial History Who Do You Live With? self Services at Home: None Smoking Status: Never Smoked ETOH Use: denies use Illicit Drug Use: denies illicit drug use Functional Ability ADLs Independent: dressing, eating, toileting, bathing. Ambulation: independent IADLs Independent: shopping, housework, finances, food prep, telephone, transportation , medication admin. Exam & Diagnostic Data Last 24 Hrs of Vital Signs/I&O Vital Signs Date Time Temp Pulse Resp B/P B/P Pulse O2 O2 Flow FiO2 Mean Ox Delivery Rate 08/13 1727 58 164/68 08/13 1431 98.8 58 18 164/68 95 08/13 0709 170/90 08/13 0600 98.9 57 18 188/102 94 08/13 0558 55 180/102 08/12 2347 160/88 08/12 2232 99.2 49 16 182/98 95 Room Air 08/127 52 182/98 08/12 2132 50 182/98 Intake & Output 08/13 1600 08/13 0800 08/13 0000 Intake Total 1191 60 300 Output Total 560 1000 500 Balance 631 -940 -200 Intake, Oral 1191 60 300 Number 1 1 Bowel Movements Output, Urine 560 1000 500 Patient 300 lb Weight Last 48 Hrs of Labs/Jordin: Laboratory Tests 08/13/17 0617: Anion Gap 13, Estimated GFR 36 L, BUN/Creatinine Ratio 17.4, Magnesium 1.8, Triglycerides 90, Cholesterol 108, LDL Cholesterol, Calc 48 L, HDL Cholesterol 42, Cholesterol/HDL Ratio 3, TSH 2.640, Free T4 1.57 08/12/17 0728: Anion Gap 12, Estimated GFR 38 L, BUN/Creatinine Ratio 15.6 Assessment/Plan Impression/Plan: General Appearance Alert, Oriented X3, Cooperative, No Acute Distress Skin No Rashes Skin Temp/Moisture Exam: Warm/Dry HEENT Atraumatic, PERRLA, EOMI, Mucous Membr. moist/pink Neck Supple, JVD Lymphatic No cervical lymphadenopathy Cardiovascular Regular Rate, Normal S1, Normal S2, No Murmurs Lungs Clear to Auscultation, Normal Air Movement, no crackles Abdomen Normal Bowel Sounds, Soft, No Tenderness, destention Neurological Normal Speech, Strength at 5/5 X4 Ext, Normal Tone, Sensation Intact, Cranial Nerves 3-12 NL, Reflexes 2+ Extremities No Clubbing, No Cyanosis, Normal Pulses, Pedal edema bilateral +2 up to kness Erythema bilateral, no tenderness SIGNIFICANT DATA Hypersomnia score done at the bedside/York score6 Nil significant Nocturnal oximetry pending to be done tonight Previous renal artery ultrasound unremarkable Previous chest x-ray showed congestive heart failure Full blood work reviewed as noted he does have chronic kidney disease and his potassium is low and the his hemoglobin is 12.2 his platelets are adequate his ABG done pretty 4 did not reveal any hypercarbia is/thyroid test unremarkable CTA done in 2016 had shown no pulmonary embolism and it had shown bronchiolitis with a small 4 mm lung nodule Patient is a lifelong nonsmoker CT of the abdomen did not reveal any significant bowel obstruction small hiatal hernia small bilateral effusions Vasculitis panel unremarkable so far Previous workup for pheochromocytoma unremarkable His previous protein electrophoresis did not reveal any evidence of monoclonal gammaglobulin up with these beta-2 microglobulin negative recent complement levels were unremarkable Previous echocardiogram showed diastolic dysfunction with PA pressures not super elevated. IMPRESSION Mr Miramontes is a 61-year-old man with past medical history of diabetes on insulin, status post amputation of one toe bilaterally migraine headaches, hypertension, coronary artery disease, previous ischemic heart MS, now admitted with persistent congestive heart failure, chronic kidney disease with significant proteinuria. His issues include * Remote history of obstructive sleep apnea more than 20 years ago, clinically does not seem to have significant sleep apnea as his York score is only 6. He continues to work a full-time job and does not have significant daytime hypersomnia. He probably does have mild sleep apnea. * Significant hypertension which seems to be uncontrolled, heart failure, significant proteinuria workup being done. Patient does not have any evidence suggestive of myeloma, vasculitis, pheochromocytoma. Renal artery stenosis diagnoses being contemplated needs to be worked up. * Mild asthma which is stable * Lifelong nonsmoker with previous history of significant bronchiolitis after he was exposed to a noxious substance at his work with restrictive pulmonary physiology, on top of his mild obstructive physiology. This needs follow-up as an outpatient * Morbid obesity, probable obesity hypoventilation as well * DM/Previous hyperglycemia with ketosis * Vascular disease with previous tia * CKD RECOMMENDATION No urgent need for use of CPAP, as he does not have significant sleep apnea by history. His York score is only 6 Check ABG prior to bedtime. Please perform nocturnal oxymetry on room air tonight If his nocturnal oximetry shows oxygen saturation 88% or below for a total hypoxia time of 5 minutes overnight he would require oxygen therapy at bedtime - if needed use 2 L nasal cannula Keep the head of bed elevated at night to reduce any obstructive sleep apnea he may have Continue diuresis Try spiranolactone MRA if able Continue current workup Patient would need outpatient sleep study which will be done as after gets discharged, patient may require BiPAP if his PCO2 is significantly elevated which should be done tonight after he has his sleep study. Consult Acknowledgment - Thank you for your consult request.
[2017-08-13 23:38] VITALS: BP 158/82
[2017-08-14 06:56] VITALS: BP 164/82
[2017-08-14 07:47] LABS: ABSOLUTE BASOPHIL COUNT 0 /CUMM (0.0-0.2); ABSOLUTE EOSINOPHIL COUNT 0.3 /CUMM (0.0-0.7); ABSOLUTE GRANULOCYTE CT 2.3 /CUMM (1.4-6.5); ABSOLUTE LYMPH COUNT 1.5 /CUMM (1.2-3.4); ABSOLUTE MONOCYTE COUNT 0.4 /CUMM (0.10-0.60); BASOPHIL % 0.7 % (0.0-2.0); EOSINOPHIL % 5.7 % (0-5); GRANULOCYTE % 51.3 % (42.2-75.2); HEMATOCRIT 38.4 % (42-52); MEAN CORPUSCULAR HGB 30.4 PG (27.0-31.0); MEAN CORPUSCULAR HGB CONC 33.6 G/DL (33.0-37.0); MEAN CORPUSCULAR VOLUME 90.3 FL (80.0-94.0); MEAN PLATELET VOLUME 9.2 FL (7.4-10.4); PLATELET COUNT 150 /CUMM (130-400); RBC DISTRIBUTION WIDTH 14.1 % (11.5-14.5); RED BLOOD CELL CT 4.25 /CUMM (4.70-6.10); WHITE BLOOD CELL COUNT 4.5 /CUMM (4.8-10.8)
--- NOTE | 2017-08-14 11:34 | PN- Att Addend ---
Attending Addendum Attending Brief Note Patient seen and examined. He still continues to complain of scrotal edema and a fair amount of lower extremity edema. On exam his blood pressure is noted to be 170/70 before his medications were given, pulse rate is 48, breathing at 16- 18 and afebrile. He is awake alert oriented, lungs have decreased breath sounds at the bases, heart is S1-S2 bradycardia, abdomen is soft and as I stated he has scrotal edema and bilateral lower extremity edema. His labs from today show a BUN of 36 and a creatinine of 2.1 with a K of 3.7. The creatinine has gone up from 1.9-2.1. He is a 61-year-old fairly complex male with obesity, diabetes with a hemoglobin A1c of 9 in March suggestive of uncontrolled diabetes. He also has refractory hypertension, obesity hypoventilation likely and chronic diastolic heart failure. We are treating him for acute on chronic diastolic heart failure, we now we have him on Toresmide by mouth twice a day. He is also on an ARB at 100 mg a day given in 2 divided doses with hydralazine 100 mg 3 times a day, 3 Clonidine patches and Aldactone 25 mg started yesterday. He was hypokalemic and given the hypertension and hypokalemia, the Aldactone was started so I will stop the standing by mouth K replacement. We will need to keep a close watch on his BUN and creatinine and his tests have shown nephrotic range proteinuria likely diabetic in origin but workup for a paraproteinemia is in process. Will need to speak to cardiology, follow-up the BUN and creatinine and if okay then discharge tomorrow on current antihypertensive regimen. He was not hypercapnic on his blood gas and will follow up on the nocturnal pulse oximetry testing.
--- NOTE | 2017-08-14 12:16 | PN- Housestaff ---
Subjective Follow-up For: CHF CKD HTN LE edema ?chronic venous stasis changes Tele-Events Since Last Visit: Junctional rhythm/first-degree heart block HR 4350 MS 0.280.32 Subjective: No acute events overnight. States that swelling slightly better today. Shortness of breath. No chest pain. Review of Systems Constitutional: Reports: see HPI. Objective Last 24 Hrs of Vital Signs/I&O Vital Signs Date Time Temp Pulse Resp B/P B/P Pulse O2 O2 Flow FiO2 Mean Ox Delivery Rate 08/14 2124 45 156/90 08/14 2121 45 156/90 08/14 1747 158/86 08/14 1504 97.7 45 18 158/86 98 08/14 0758 176/74 08/14 0758 176/74 08/14 0656 98.2 48 18 164/82 98 Room Air 08/14 0000 99 Room Air 08/13 2338 99.1 48 18 158/82 96 Room Air Intake & Output 08/14 1600 08/14 0800 08/14 0000 Intake Total 1000 220 200 Output Total 875 350 Balance 125 -130 200 Intake, Oral 1000 220 200 Output, Urine 875 350 Patient 197 lb Weight Weight Bed scale Measurement Method Physical Exam General Appearance: Alert, Oriented X3, Cooperative Cardiovascular: Regular Rate, Normal S1, Normal S2 Lungs: Clear to Auscultation, Normal Air Movement Abdomen: Normal Bowel Sounds, Soft, No Tenderness Extremities: trace bilateral lower extremity edema Current Medications: Current Medications Sig/Jacque Start time Last Medication Dose Route Stop Time Status Admin Acetaminophen 650 MG Q6P PRN 08/08 1915 AC PO Aspirin 81 MG DAILY 08/09 1000 AC 08/14 PO 0758 Atorvastatin Calcium 20 MG 1700 08/09 1700 AC 08/14 PO 1747 Clonidine 3 PAT ONCE A WEEK 08/12 1000 AC 08/12 TOP 1028 Famotidine 20 MG BID 08/12 1046 AC 08/14 PO 2121 Heparin Sodium 5,000 UNIT Q8 08/08 2200 AC 08/14 (Porcine) SC 2120 Hydralazine HCl 100 MG TID 08/11 1600 AC 08/14 PO 2125 Insulin Aspart 0 TIDAC 08/12 1200 AC 08/14 SC 1748 Insulin Detemir 18 UNITS DAILY 08/09 1000 AC 08/14 SC 0757 Losartan Potassium 50 MG Q12 08/12 1000 AC 08/14 PO 0758 Potassium Chloride 40 MEQ DAILY 08/13 1000 DC 08/14 PO 0757 Spironolactone 25 MG DAILY 08/13 1530 AC 08/14 PO 0757 Torsemide 20 MG 7:30 AM, & 4:30 PM 08/13 1630 AC 08/14 PO 1747 Trimethobenzamide HCl 200 MG ONCE PRN 08/12 0800 AC IM Last 24 Hrs of Lab/Jordin Results Last 24 Hrs of Labs/Mics: Laboratory Tests 08/14/17 0637: Anion Gap 12, Estimated GFR 32 L, BUN/Creatinine Ratio 17.1, CBC w Diff NO MAN DIFF REQ, RBC 4.25 L, MCV 90.3, MCH 30.4, MCHC 33.6, RDW 14.1, MPV 9.2, Gran % 51.3, Lymphocytes % 33.6, Monocytes % 8.7, Eosinophils % 5.7 H, Basophils % 0.7 , Absolute Granulocytes 2.3, Absolute Lymphocytes 1.5, Absolute Monocytes 0.4, Absolute Eosinophils 0.3, Absolute Basophils 0 Assessment/Plan Assessment: A: 61-year-old male with past medical history significant for HFPEF, osteomyelitis status post bilateral second toe amputation, diabetes, hyperlipidemia, venous insufficiency, JUVE noncompliant with CPAP who presented to ED with chief complaint of lower extremity swelling. Problem list #hypertensive urgency with hx of JUVE but non compliant on CPAP ABG pH 7.46, PCO2 30, PO2 79, bicarbonate 26 Overnight pulse ox revealed less than 89% O2 saturation for 20 seconds TSH, free T4 normal -Patient found to be bradycardic in the 40s, discontinue clonidine for symptomatic bradycardia -dc'ed nifedipine, minoxidil -switch from po lasix to po torsemide 20mg BID -add david 25mg per cards + nephro -Continue hydralazine 100mg tid, clonidine .3mg daily, cont losartan -fluid restriction 1500 -called resp to help potentially restart cpap -Follow cards + nephrology recommendations blood pressure control in the setting of CKD -pt agreed to outpatient sleep study for possible new cpap mask #CHF/anasarca due to ?nephrotic syndrome proBNP 1080 CXR suggestive of CHF Urine ran cr 26.5, Cr 1.6, Total 24hr protein 3986.5 Hepatitis panel, DAVID, ANCA, C3, C4 normal Spep unremarkable Lipid panel normal -f/u dietary consult/encourage protein supplmentaion with ensure -Continue monitoring ins and outs, daily weights -Continue Lasix as creatinine is stable -Follow cardiology recommendations #CKD Cr 1.9 -> 2.1 -Discontinue potassium supplementation -follow neprho recs #chronic venous stasis vs ?LE cellulitis no WBC aferbile -cont to monitor -cont wound care #[place] -Start famotidine for possible GERD/dyspepsia -tigan prn #diabetes -cont levemir, NovoLog sliding scale #chronic medical conditions: hld -cont atorvastatin -DVT prophylaxis heparin subcutaneous -Diet heart healthy -Code full Problem List: 1. HTN (hypertension) 2. CKD (chronic kidney disease) 3. Venous stasis 4. Swelling Pain Ratin Pain Location: none Pain Goal: Pain 4 or less Pain Plan: none Tomorrow's Labs & Rationales: bep
[2017-08-14 15:04] VITALS: BP 158/86
[2017-08-14 22:39] VITALS: BP 156/90
[2017-08-15 07:19] VITALS: BP 188/86
[2017-08-15 07:42] VITALS: BP 160/82
--- NOTE | 2017-08-15 08:44 | PN- Housestaff ---
Aura MATOS,[facility] 08/15/17 0843: Subjective Follow-up For: CHF CKD HTN LE edema Nephrogenic range proteinuria Subjective: Patient was seen and examined this morning, blood pressure range between 150-170 systolic. Denied any symptoms. No overnight events reported by the nurse of the patient. Review of Systems Constitutional: Reports: see HPI. Objective Last 24 Hrs of Vital Signs/I&O Vital Signs Date Time Temp Pulse Resp B/P B/P Pulse O2 O2 Flow FiO2 Mean Ox Delivery Rate 08/15 1555 46 150/68 08/15 1400 97.8 50 20 148/80 98 08/15 1133 172/80 08/15 0742 160/82 08/15 0719 97.8 51 12 188/86 98 Room Air 08/15 0631 52 188/84 08/15 0614 52 188/96 08/14 2239 97.4 45 20 156/90 96 Room Air 08/14 2125 45 156/90 08/14 2122 45 156/90 Intake & Output 08/15 1600 08/15 0800 08/15 0000 Intake Total 1000 60 120 Output Total 500 500 Balance 1000 -440 -380 Intake, Oral 1000 60 120 Number 1 Bowel Movements Output, Urine 500 500 Patient 135.171 kg Weight Weight Bed scale Measurement Method Physical Exam General Appearance: Alert, Oriented X3, Cooperative, No Acute Distress Skin: No Rashes, No Breakdown, No Significant Lesion Skin Temp/Moisture Exam: Warm/Dry HEENT: Atraumatic, PERRLA, EOMI, Mucous Membr. moist/pink Neck: Supple Cardiovascular: Regular Rate, Normal S1, Normal S2, No Murmurs Lungs: Clear to Auscultation, Normal Air Movement Abdomen: Normal Bowel Sounds, Soft, No Tenderness Extremities: No Clubbing, No Cyanosis, Normal Pulses, +1 bilateral pedal edema Assessment/Plan Assessment: Patient is 61-year-old male with past medical history significant for HFPEF, osteomyelitis status post bilateral second toe amputation, diabetes, hyperlipidemia, venous insufficiency, JUVE noncompliant with CPAP who presented to ED with chief complaint of lower extremity swelling. Problem list #hypertensive urgency with hx of JUVE but non compliant on CPAP ABG pH 7.46, PCO2 30, PO2 79, bicarbonate 26 Overnight pulse ox revealed less than 89% O2 saturation for 20 seconds TSH, free T4 normal -Continue clonidine patient has bradycardia to 40 is Asymptomatic -Hold nifedipine, minoxidil -Continue po torsemide 20mg BID -Continue Hector 25mg per cards + nephro -Continue hydralazine 100mg tid, clonidine .3mg daily, cont losartan -fluid restriction 1500 -called resp to help potentially restart cpap -Follow cards + nephrology recommendations blood pressure control in the setting of CKD -pt agreed to outpatient sleep study for possible new cpap mask #CHF/anasarca due to ?nephrotic syndrome proBNP 1080 CXR suggestive of CHF Urine ran cr 26.5, Cr 1.6, Total 24hr protein 3986.5 Hepatitis panel, DAVID, ANCA, C3, C4 normal Spep unremarkable Lipid panel normal -f/u dietary consult/encourage protein supplmentaion with ensure -Continue monitoring ins and outs, daily weights -Continue Lasix as creatinine is stable -Follow cardiology recommendations #CKD Cr 1.9 -> 2.1 -Discontinue potassium supplementation -follow neprho recs #chronic venous stasis vs ?LE cellulitis no WBC aferbile -cont to monitor -cont wound care #[place] -Start famotidine for possible GERD/dyspepsia -tigan prn #diabetes -cont levemir, NovoLog sliding scale #chronic medical conditions: hld -cont atorvastatin -DVT prophylaxis heparin subcutaneous -Diet heart healthy -Code full Problem List: 1. HTN (hypertension) 2. CKD (chronic kidney disease) Pain Ratin Pain Location: N/a Pain Goal: Pain 4 or less Pain Plan: See medication Tomorrow's Labs & Rationales: ALBERTA Thornton MD,Kathryn 08/15/17 1146: Attending MD Review Statement Attending Statement Attending MD Statement: examined this patient, discuss w/resident/PA/PLASTICS ENGINEER, reviewed EMR data (avail), discussed with nursing, reviewed images Attending Assessment/Plan: He is a 61-year-old fairly complex male with obesity, diabetes with a hemoglobin A1c of 9 in March suggestive of uncontrolled diabetes. He also has refractory hypertension, obesity hypoventilation likely and acute on chronic diastolic heart failure. We are treating him for acute on chronic diastolic heart failure, we now we have him on Toresmide by mouth twice a day. He is also on an ARB at 100 mg a day given in 2 divided doses with hydralazine 100 mg 3 times a day, 3 Clonidine patches and Aldactone 25 mg started yesterday. He was hypokalemic and given the hypertension and hypokalemia, the Aldactone was started so I will stop the standing by mouth K replacement. We will need to keep a close watch on his BUN and creatinine and his tests have shown nephrotic range proteinuria likely diabetic in origin. So far the workup for paraproteinemia has been negative. So far the workup for secondary causes of hypertension including Pheo have been negative. We haven't done an MRA for renal artery stenosis because of the CKD but the renal Doppler and ultrasound have been negative. Right now my concern is the bradycardia. He's always been on the low side at 60s to 70s. That has limited the use of any beta jose and now with the 3 clonidine patches which I suspect is contributing further, his heart rate is in the 40s. He is asymptomatic and doesn't feel dizzy and his main complaint is the scrotal and pedal edema. At this point I think we still need to continue watching the blood pressure, the renal function and the heart rate. We are very limited at this point now with what we can use for further blood culture control that won't touch his heart rate or his kidney function.
[2017-08-15] MEDS ORDERED: LOSARTAN POTASS50 M1 PO (10:21)
[2017-08-15] MEDS ORDERED: CATAPRES-TTS 11 EACH TOP (10:21)
[2017-08-15] MEDS ORDERED: TORSEMIDE20 M1 PO (10:21)
[2017-08-15] MEDS ORDERED: ALDACTONE25 MG PO (10:21)
[2017-08-15] MEDS ORDERED: HYDRALAZINE HC100 M1 PO (10:21)
--- NOTE | 2017-08-15 10:22 | Patient Discharge Instructions ---
Discharge Instructions General Discharge Information Special Instructions: Please follow up with your pcp in 1 week. Please follow up with your health services coordinator in 1 week. Please follow up with your php programmer in 1 week. If you wish to see Dr. Avina, we have included his contact info. Please follow up with his ENVIRONMENT COORDINATOR on August 24 @ 230pm. [address], [place]. Please follow up with your new pulmnologist Dr. Fernandes for sleep study and follow up. Please take your medications as perscribed. Acute Coronary Syndrome Inclusion Criteria At DC or during hospital stay patient has or had the following: ACS DIAGNOSIS No Discharge Core Measures Meds if any: Prescribed or Continued at Discharge Meds if any: NOT Prescribed or Continued at Discharge Congestive Heart Failure Inclusion Criteria At DC or during hospital stay patient has or had the following: CHF DIAGNOSIS Yes Discharge Core Measures Meds if any: Prescribed or Continued at Discharge Meds if any: NOT Prescribed or Continued at Discharge Cerebrovascular accident Inclusion Criteria At DC or during hospital stay patient has or had the following: CVA/TIA Diagnosis No Discharge Core Measures Meds if any: Prescribed or Continued at Discharge Meds if any: NOT Prescribed or Continued at Discharge Venous thromboembolism Inclusion Criteria VTE Diagnosis No VTE Type NONE VTE Confirmed by (Test) NONE Discharge Core Measures - Per Current guidelines, there needs to be overlap - treatment for the first 5 days of Warfarin therapy. - If discharged on Warfarin prior to 5 days of - overlap therapy, the patient will need to be - assessed for post discharge needs including - *Post discharge parental anticoagulation - *Warfarin and/or parental anticoagulation education - *Follow up date to check INR post discharge At least 5 days overlap therapy as Inpatient No Meds if any: Prescribed or Continued at Discharge Note: Overlap Therapy is Warfarin and Anticoagulant Meds if any: NOT Prescribed or Continued at Discharge
[2017-08-15 11:33] VITALS: BP 172/80
[2017-08-15 14:00] VITALS: BP 148/80
[2017-08-15 23:03] VITALS: BP 152/78
[2017-08-16 06:39] VITALS: BP 128/70
--- NOTE | 2017-08-16 07:20 | PN- Housestaff ---
See Addendum Bakari MATOS,Steven 08/16/17 0719: Subjective Follow-up For: CHF CKD HTN LE edema Nephrotic syndrome ?chronic venous stasis changes Subjective: No acute events overnight. States swelling is at baseline. No SOB or CP. Would like to be discharged. Review of Systems Constitutional: Reports: see HPI. Objective Last 24 Hrs of Vital Signs/I&O Vital Signs Date Time Temp Pulse Resp B/P B/P Pulse O2 O2 Flow FiO2 Mean Ox Delivery Rate 08/16 0836 55 160/78 08/16 0836 55 16/78 08/16 0639 97.9 53 18 128/70 95 Room Air 08/15 2303 98.4 47 16 152/78 95 Room Air 08/15 2247 48 162/80 08/15 2246 48 162/80 08/15 1555 46 150/68 Intake & Output 08/16 1600 08/16 0800 08/16 0000 Intake Total 200 650 Output Total 750 Balance -550 650 Intake, Oral 200 650 Output, Urine 750 Patient 288 lb Weight Physical Exam General Appearance: Alert, Oriented X3, Cooperative Cardiovascular: Regular Rate, Normal S1, Normal S2 Lungs: Clear to Auscultation, Normal Air Movement Abdomen: Normal Bowel Sounds, Soft, No Tenderness Extremities: trace RLE edema, scrotal edema Vascular: 2+ radial pulses Current Medications: Current Medications Sig/Jacque Start time Last Medication Dose Route Stop Time Status Admin Acetaminophen 650 MG Q6P PRN 08/08 1915 DCD PO Aspirin 81 MG DAILY 08/09 1000 DCD 08/16 PO 0834 Atorvastatin Calcium 20 MG 1700 08/09 1700 DCD 08/15 PO 1657 Clonidine 3 PAT ONCE A WEEK 08/12 1000 DCD 08/12 TOP 1028 Famotidine 20 MG BID 08/12 1046 DCD 08/16 PO 0833 Heparin Sodium 5,000 UNIT Q8 08/08 2200 DCD 08/16 (Porcine) SC 0833 Hydralazine HCl 100 MG TID 08/11 1600 DCD 08/16 PO 0836 Insulin Aspart 0 TIDAC 08/12 1200 DCD 08/16 SC 1217 Insulin Detemir 18 UNITS DAILY 08/09 1000 DCD 08/16 SC 0833 Losartan Potassium 50 MG Q12 08/12 1000 DCD 08/16 PO 0836 Spironolactone 25 MG DAILY 08/13 1530 DCD 08/16 PO 0834 Torsemide 20 MG 7:30 AM, & 4:30 PM 08/13 1630 DCD 08/16 PO 0834 Trimethobenzamide HCl 200 MG ONCE PRN 08/12 0800 DCD IM Last 24 Hrs of Lab/Jordin Results Last 24 Hrs of Labs/Mics: Laboratory Tests 08/16/17 0630: Anion Gap 12, Estimated GFR 32 L, BUN/Creatinine Ratio 20.0 Assessment/Plan Assessment: Patient is 61-year-old male with past medical history significant for HFPEF, osteomyelitis status post bilateral second toe amputation, diabetes, hyperlipidemia, venous insufficiency, JUVE noncompliant with CPAP who presented to ED with chief complaint of lower extremity swelling. Problem list #hypertensive urgency with hx of JUVE but non compliant on CPAP ABG pH 7.46, PCO2 30, PO2 79, bicarbonate 26 Overnight pulse ox revealed less than 89% O2 saturation for 20 seconds TSH, free T4 normal -BP improved to 150-160s/70s-80 -Continue clonidine patient. Bradycardia to 40 is asymptomatic -Hold nifedipine, minoxidil -Continue po torsemide 20mg BID -Continue Hector 25mg per cards + nephro -Continue hydralazine 100mg tid, clonidine .3mg daily, losartan -fluid restriction 1500 -called resp to help potentially restart cpap -Follow cards + nephrology recommendations blood pressure control in the setting of CKD -pt agreed to outpatient sleep study for possible new cpap mask #CHF/anasarca due to ?nephrotic syndrome proBNP 1080 CXR suggestive of CHF Urine ran cr 26.5, Cr 1.6, Total 24hr protein 3986.5 Hepatitis panel, DAVID, ANCA, C3, C4 normal Spep unremarkable Lipid panel normal -f/u dietary consult/encourage protein supplmentaion with ensure -Continue monitoring ins and outs, daily weights -Continue Lasix as creatinine is stable -Follow cardiology recommendations #CKD Cr 1.9 -> 2.1 -Discontinue potassium supplementation -follow neprho recs #chronic venous stasis vs ?LE cellulitis no WBC aferbile -cont to monitor -cont wound care #[place] -Start famotidine for possible GERD/dyspepsia -tigan prn #diabetes -cont levemir, NovoLog sliding scale #chronic medical conditions: hld -cont atorvastatin -DVT prophylaxis heparin subcutaneous -Diet heart healthy -Code full Problem List: 1. Nephrotic syndrome 2. Edema 3. HTN (hypertension) 4. CKD (chronic kidney disease) 5. Venous stasis Pain Ratin Pain Location: none Pain Goal: Pain 4 or less Pain Plan: pain pathway Tomorrow's Labs & Rationales: none Donnell Mckeon 08/16/17 1441: Attending MD Review Statement Attending Statement Attending MD Statement: examined this patient, discuss w/resident/PA/SOFTWARE SPECIALIST, agreed w/resident/PA/SOFTWARE SPECIALIST, reviewed EMR data (avail), discussed with nursing, discussed with case mgmt Attending Assessment/Plan: Pt being dced home in stable condition. LE and scrotal edema at [facility]. D/w dr velazquez and pt will f/u with him in clinic and will also f/u with cardiology and pulm in clinic. Overnight pulse oxy did not show desaturations. d/w pt the care plan. Encouraged him to f/u on fluid restriction and salt restriction.
[2017-08-16 08:36] VITALS: BP 160/78
--- NOTE | 2017-08-16 10:17 | PN- Pulmonary ---
Subjective HPI/Critical Care Issues: Much improved Stable OVERNIGHT OXYMETRY SHOWED NO DESAT Objective Current Medications: Current Medications Sig/Jacque Start time Last Medication Dose Route Stop Time Status Admin Acetaminophen 650 MG Q6P PRN 08/08 1915 AC PO Aspirin 81 MG DAILY 08/09 1000 AC 08/16 PO 0834 Atorvastatin Calcium 20 MG 1700 08/09 1700 AC 08/15 PO 1657 Clonidine 3 PAT ONCE A WEEK 08/12 1000 AC 08/12 TOP 1028 Famotidine 20 MG BID 08/12 1046 AC 08/16 PO 0833 Heparin Sodium 5,000 UNIT Q8 08/08 2200 AC 08/16 (Porcine) SC 0833 Hydralazine HCl 100 MG TID 08/11 1600 AC 08/16 PO 0836 Insulin Aspart 0 TIDAC 08/12 1200 AC 08/16 SC 0833 Insulin Detemir 18 UNITS DAILY 08/09 1000 AC 08/16 SC 0833 Losartan Potassium 50 MG Q12 08/12 1000 AC 08/16 PO 0836 Spironolactone 25 MG DAILY 08/13 1530 AC 08/16 PO 0834 Torsemide 20 MG 7:30 AM, & 4:30 PM 08/13 1630 AC 08/16 PO 0834 Trimethobenzamide HCl 200 MG ONCE PRN 08/12 0800 AC IM Vital Signs & I&O Last 24 Hrs of Vitals and I&O: Vital Signs Date Time Temp Pulse Resp B/P B/P Pulse O2 O2 Flow FiO2 Mean Ox Delivery Rate 08/16 0836 55 160/78 08/16 0836 55 16/78 08/16 0639 97.9 53 18 128/70 95 Room Air 08/15 2303 98.4 47 16 152/78 95 Room Air 08/15 2247 48 162/80 08/15 2246 48 162/80 08/15 1555 46 150/68 04 1400 97.8 50 20 148/80 98 04 1133 172/80 Intake & Output 08/16 1600 08/16 0800 08/16 0000 Intake Total 200 650 Output Total 750 Balance -550 650 Intake, Oral 200 650 Output, Urine 750 Patient 288 lb Weight Impression/Plan Impression/Plan Impression/Plan: General Appearance Alert, Oriented X3, Cooperative, No Acute Distress Skin No Rashes Skin Temp/Moisture Exam: Warm/Dry HEENT Atraumatic, PERRLA, EOMI, Mucous Membr. moist/pink Neck Supple, JVD Lymphatic No cervical lymphadenopathy Cardiovascular Regular Rate, Normal S1, Normal S2, No Murmurs Lungs Clear to Auscultation, Normal Air Movement, no crackles Abdomen Normal Bowel Sounds, Soft, No Tenderness, destention Neurological Normal Speech, Strength at 5/5 X4 Ext, Normal Tone, Sensation Intact, Cranial Nerves 3-12 NL, Reflexes 2+ Extremities No Clubbing, No Cyanosis, Normal Pulses, Pedal edema bilateral +2 up to kness Erythema bilateral, no tenderness SIGNIFICANT DATA Hypersomnia score done at the bedside/[place] score6 Nocturnal oximetry NO DESAT ABG NO HYPERCARBIA 7.46/ ON ROOM AIR IMPRESSION Mr Miramontes is a 61-year-old man with past medical history of diabetes on insulin, status post amputation of one toe bilaterally migraine headaches, hypertension, coronary artery disease, previous ischemic heart ND, now admitted with persistent congestive heart failure, chronic kidney disease with significant proteinuria. His issues include * Remote history of obstructive sleep apnea more than 20 years ago, clinically does not seem to have significant sleep apnea as his [place] score is only 6. He continues to work a full-time job and does not have significant daytime hypersomnia. His nocturnal oxymetry is neg for desat and his abg shows no hypercarbia * Significant hypertension which seems to be uncontrolled, heart failure, significant proteinuria workup being done. Patient does not have any evidence suggestive of myeloma, vasculitis, pheochromocytoma. Renal artery stenosis diagnoses being contemplated needs to be worked up. * Mild asthma which is stable * Lifelong nonsmoker with previous history of significant bronchiolitis after he was exposed to a noxious substance at his work with restrictive pulmonary physiology, on top of his mild obstructive physiology. This needs follow-up as an outpatient * Morbid obesity, probable obesity hypoventilation as well * DM/Previous hyperglycemia with ketosis * Vascular disease with previous tia * CKD RECOMMENDATION Out pt follo up for eval of ever if any Try spiranolactone and increase dose and check creat and potassium daily MRA if able Will follow prn
[2017-08-16] MEDS ORDERED: CATAPRES-TTS 11 EACH TOP (10:37)
[2017-08-16] MEDS ORDERED: LOSARTAN POTASS50 M1 PO (10:37)
[2017-08-16] MEDS ORDERED: ALDACTONE25 MG PO (10:37)
[2017-08-16] MEDS ORDERED: TORSEMIDE20 M1 PO (10:37)
[2017-08-16] MEDS ORDERED: HYDRALAZINE HC100 M1 PO (10:37)
[2017-08-16] MEDS ORDERED: LASIX40 M1 PO (11:53)
--- NOTE | 2017-08-16 12:30 | PN- Cardiology ---
Subjective Subjective: * Doing better without chest discomfort, shortness of breath, lightheadedness or palpitations. * blood pressure is improved. * Improved leg swelling and scrotal edema * creatinine is 2.1 Objective Vital Signs and I&Os Vital Signs Date Time Temp Pulse Resp B/P B/P Pulse O2 O2 Flow FiO2 Mean Ox Delivery Rate 08/17 0736 55 160/78 08/16 0836 55 16/78 08/16 0639 97.9 53 18 128/70 95 Room Air 08/15 2303 98.4 47 16 152/78 95 Room Air 08/15 2247 48 162/80 08/15 2246 48 162/80 08/15 1555 46 150/68 08/15 1400 97.8 50 20 148/80 98 Intake & Output 08/16 1600 08/16 0808/16 0000 08/15 1600 08/15 0800 08/15 0000 Intake Total 754 990 5359 60 120 Output Total 750 800 500 500 Balance -550 650 200 -440 -380 Intake, Oral 973 127 4409 60 120 Number 1 Bowel Movements Output, Urine 750 800 500 500 Patient 288 lb 298 lb Weight Weight Bed scale Measurement Method Physical Exam: General: WD/ obese male in NAD; alert and oriented x 3 Neck: no JVD, no carotid bruit Heart: RRR with 2/6 systolic murmur Lungs: clear bilaterally : mild scrotal edema Extremities: 1+ leg edema bilaterally Assessment/Plan Assessment/Plan * Continued improvement in edema since admission with 1+ leg edema with poorly controlled BP. Continue oral torsedmide and continue to minimize any medications noted for causing peripheral edema, if possible. This patient may well have nephrotic syndrome as noted by Dr. Avina and should continue on an ARB. In addition to protein in his urine he did have a low serum albumen although it is better now. His triglycerides are normal so he does not seem to meet the criteria for nephrotic syndrome at the present time. * Continue Labetolol 100mg PO BID and monitor for significant bradycardia. He has some mild asymptomatic bradycardia at the present time which is not unusual considering the combination of clonidine and beta jose. We will continue these medications unless significant bradycardia or heart block. I would not increase the Labetolol however. * He has not used his CPAP for a very long time and this has likely contributed to his hypertension. A sleep study is planned for the future as an outpatient. In the setting of refractory hypertension there is likely an underlying stimulus to the persistent hypertension and epinephrine release from sleep apnea is a well documented potential cause. I would pursue CPAP if possible which can always be stopped if proven unecessary. The patient has evidence of a very thickened heart with diastolic dysfunction that is almost certainly related to his long-standing hypertension. A workup for renal artery stenosis, hyperaldosteronism and pheochromocytoma has been done. * In consideration of his refractory hypertension and hypokalemia continue spironolactone 25mg daily. Continue a low sodium diet. * The patient is improved and stable for discharge from a cardiac standpoint with follow recommended in the office in a week and follow up for his outpatient sleep study. Continue telemetry? No
--- NOTE | 2017-08-17 00:57 | Discharge Summary ---
Visit Information Visit Dates Admission Date: 08/08/17 Discharge Date: 08/16/17 Hospital Course Course Attending Physician: Peterson Mckeon MDscott Primary Care Physician: Edwige MATOS,[facility] Course: A: 61-year-old male with past medical history significant for HFPEF, osteomyelitis status post bilateral second toe amputation, diabetes, hyperlipidemia, venous insufficiency, JUVE noncompliant with CPAP who presented to ED with chief complaint of lower extremity swelling. Problem list: #Hypertensive urgency with hx of JUVE but non compliant on CPAP The patient was found to have hypertensive urgency upon admission. His max BP was 210/94. The patient states a hx of using CPAP 20 years ago but stopped as he did not like the mask. Cardiology and nephrology were consulted for management of his BP. We kept the patient on a 1500ml daily fluid restriction. We held nifedipine and minoxidil as they could have contributed to his LE swelling. We increased hydralazine to 100mg tid, clonidine to .3mg daily. We also changed his valsartan to losartan 50mg BID. Lasix was stopped and he was switched to po torsemide. Spironolactone was also added per both cardiology and nephro. His HR became bradycardic in the 40s-50s but he was asymptomatic. His LE and scrotal swelling improved to baseline. Upon discharge his BP improved to 150-160s/70s- 80. He was advised to folow up with cardiology and nephrology. #History of JUVE not on cpap Respiratory therapy was called for evaluation of CPAP during admission but the patient initally refused. We trended his overnight pulse ox which revealed total periods <89% O2 saturation for 20 seconds. His epsworth sleep score was 6. His Tsh and free t4 were normal. It appears he does not need cpap at this moment in time. However, he was advised to follow up with pulmnology for an official at home sleep study evaluation. #Diffuse edema secondary to CHF and nephrotic syndrome The patient presented with diffuse edema most noticably in his lower extremities and scrotum. His inital proBNP 1080 and CXR suggestive of CHF. He was initially treated with IV lasix then po lasix and then po torsemide. Given his persistent edema and htn in the setting of ckd, nephrology was consulted. He was found to have nephrotic range proteinuria. The patient's labs revealed: urine random cr 26.5, Cr 1.6, Total 24hr protein 3986.5. The hepatitis panel, DAVID, ANCA, C3, C4, abd lipid panel were normal. Spep was unremarkable. #CKD The patient presented with a baseline Cr of 1.5-1.8. His new baseline appears to be 1.9-2.1. He was previously on potassium supplementation with lasix. This was stopped as he was started on spironolactone which can increase K+. He was advised to f/u with nephrology. #Chronic venous stasis/dermatitis of anterior tanner There are chronic venous stasis changes of his anterior tanner b/l. We monitored for possible cellulitis but the patient was afebrile (t-max 99.2) and had no leukocytosis during admission. #Diabetes Continued levemir and placed patient on NovoLog sliding scale. #hx of HLD Continued atorvastatin Allergies: Coded Allergies: NO KNOWN ALLERGIES (11/19/13) Disposition Summary Disposition Principal Diagnosis: hypertensive urgency Additional Diagnosis: hx of JUVE but non compliant on CPAP Diffuse edema secondary to CHF and nephrotic syndrome CKD Chronic venous stasis/dermatitis Discharge Disposition: home or self care Discharge Instructions General Discharge Information Code Status: Full Code Patient's Diet: Diabetic Patient's Activity: As tolerated. Follow-Up Instructions/Appts: Please follow up with your pcp in 1 week. Please follow up with your vocal music instructor in 1 week. Please follow up with your superintendent stations in 1 week. If you wish to see Dr. Avina, we have included his contact info. Please follow up with his COAL BAGGER on August 24 @ 230pm. [address], [place]. Please follow up with your new pulmnologist Dr. Fernandes for sleep study and follow up. Please take your medications as perscribed. Medications at Discharge Discharge Medications: Stop taking the following medications: Potassium Chloride (Klor-Con M20) 20 MEQ TAB.ER.PRT ORAL DAILY Days = 30 Clonidine Tts-1 (Catapres-Tts 1) 0.1 MG/24 HOUR PATCH.TDWK On the skin ONCE A WEEK Qty = 5 Hydralazine HCl (Hydralazine HCl) 50 MG TABLET ORAL TWICE DAILY Qty = 90 Minoxidil (Minoxidil) 10 MG TABLET ORAL DAILY Qty = 15 Nifedipine (Procardia XL) 90 MG TAB.ER.24 ORAL DAILY Qty = 30 Valsartan (Valsartan) 320 MG TABLET ORAL DAILY Qty = 30 Continue taking these medications: Simvastatin (Simvastatin*) 40 MG TABLET 1 Tablet ORAL DAILY Comments: Last Taken:08/15/17 Time:1657 LIPITOR GIVEN Aspirin (Children's Aspirin) 81 MG TAB.CHEW 1 Tablet ORAL DAILY Comments: Last Taken:08/16/17 Time:0834 Cholecalciferol (Vitamin D3) (Vitamin D3) 2,000 UNIT TABLET 1 Tablet ORAL DAILY Comments: NOT GIVEN Insulin Aspart (Novolog) 100 UNIT/ML VIAL 0 Inject into fatty tissue 3 TIMES DAILY BEFORE MEALS Qty = 1 Instructions: 80-150 4 UNITS 151-200 5 UNITS 201-250 6 UNITS 251-300 8 UNITS 301-350 9 UNITS 350-400 10 UNITS > 400 12 UNITS Comments: Last Taken:08/16/17 Time:1200PM Insulin Degludec (Tresiba Flextouch U-100) 100 UNIT/ML (3 ML) INSULN.PEN 20 Units Inject into fatty tissue Every Morning Comments: NOT GIVEN Start taking the following new medications: Clonidine Tts-1 (Catapres-Tts 1) 0.1 MG/24 HOUR PATCH.TDWK 3 Patch On the skin ONCE A WEEK Qty = 12 No Refills Instructions: . Comments: Last Taken:08/12/17 Time:1028 Hydralazine HCl (Hydralazine HCl) 100 MG TABLET 1 Tablet ORAL THREE TIMES DAILY Qty = 90 No Refills Instructions: . Comments: Last Taken:08/16/17 Time:0836 Losartan Potassium (Losartan Potassium) 50 MG TABLET 1 Tablet ORAL EVERY 12 HOURS Qty = 60 No Refills Instructions: . Comments: Last Taken:08/16/17 Time:0833 Spironolactone (Aldactone) 25 MG TABLET 1 Tablet ORAL DAILY Qty = 30 No Refills Instructions: . Comments: Last Taken:08/16/17 Time:0834 Torsemide (Torsemide) 20 MG TABLET 1 Tablet ORAL 7:30AM & 4:30PM Qty = 60 No Refills Instructions: . Comments: Last Taken:08/16/17 Time:.0834 Copies To: Edwige MATOS,Cee
== END 2017-08-16 14:25 | DRG 304 ==
LOC: ERH 12:44 → ERHI 16:11 → 1NO 16:11 → ENRESERV 17:57 → ENTRNSPT 19:54 → EDTRNSPTSTS 20:02 → 1NO 20:28 → CMPTRNSPT 20:59 → 1NO 08-09 07:47 → ENPENDDIS 08-16 11:10 → 1NO 08-16 14:25
PROVIDERS: Physician Assistant Medical; Student in an Organized Health Care Education/Training Program
DX: I16.0 Hypertensive urgency (principal); I50.33 Acute on chronic diastolic (congestive) heart failure; N17.9 Acute kidney failure, unspecified; E11.22 Type 2 diabetes mellitus with diabetic chronic kidney disease; E11.319 Type 2 diabetes mellitus with unspecified diabetic retinopathy without macular edema; E66.01 Morbid (severe) obesity due to excess calories; L03.115 Cellulitis of right lower limb; M86.672 Other chronic osteomyelitis, left ankle and foot; E87.0 Hyperosmolality and hypernatremia; L03.116 Cellulitis of left lower limb; Z68.41 Body mass index [BMI] 40.0-44.9, adult; E11.51 Type 2 diabetes mellitus with diabetic peripheral angiopathy without gangrene; E78.5 Hyperlipidemia, unspecified; Z89.429 Acquired absence of other toe(s), unspecified side; I87.2 Venous insufficiency (chronic) (peripheral); G47.33 Obstructive sleep apnea (adult) (pediatric); F51.9 Sleep disorder not due to a substance or known physiological condition, unspecified; Z79.4 Long term (current) use of insulin; Z79.82 Long term (current) use of aspirin; Z82.49 Family history of ischemic heart disease and other diseases of the circulatory system; Z83.3 Family history of diabetes mellitus; I45.4 Nonspecific intraventricular block; N50.89 Other specified disorders of the male genital organs; R00.1 Bradycardia, unspecified; I25.10 Atherosclerotic heart disease of native coronary artery without angina pectoris; F17.210 Nicotine dependence, cigarettes, uncomplicated; Z86.73 Personal history of transient ischemic attack (TIA), and cerebral infarction without residual deficits; I44.0 Atrioventricular block, first degree; I87.8 Other specified disorders of veins; I13.0 Hypertensive heart and chronic kidney disease with heart failure and stage 1 through stage 4 chronic kidney disease, or unspecified chronic kidney disease; N18.9 Chronic kidney disease, unspecified; Z91.14 Patient's other noncompliance with medication regimen
CPT/HCPCS: 1NSP; 86160; 36415; 36592; 71046; 81001; 82436; 82570; 84165; 93005; 93010; J1644; J1940; J3250; J3490